=== PATIENT | female | born 1945 | race Caucasian/White ===

== ENCOUNTER 2016-08-26 11:25 | Inpatient (IN) | payer MEDICARE, BC ==
[2016-08-26] MEDS ORDERED: AZITHROMYCIN 500 MG in SODIUM CHLORIDE 0.9% 250 ML IVPB STA (12:10)
--- NOTE | 2016-08-26 12:15 | ED ---
SOB HPI - General Chief Complaint: Shortness of Breath Stated Complaint: congestion Time Seen by Provider: 08/26/16 12:04 Source: patient, family Mode of arrival: ambulatory Limitations: no limitations - History of Present Illness Initial Comments: Patient complains of cough and shortness of breath. Her symptoms have been there for about one week. She was started on antibiotics as an outpatient as well as steroids. She states that today she is feeling much worse. The medications are not helping her at all. She does not have any chest pain. She has no belly pain. She has no back pain. She has no lightheadedness or dizziness. She does not recall any other sick contacts. She has not traveled anywhere. She has no weakness or trouble walking. She is tolerating oral intake. - Related Data Home Medications Medication Instructions Recorded Confirmed Cholecalciferol (Vitamin D3) 4,000 units PO DAILY 06/04/14 08/26/16 [Vitamin D3] Levothyroxine Sodium [Synthroid] 88 mcg PO DAILY 05/16/15 08/26/16 Azithromycin [Zithromax Z-pack] See Taper PO DAILY 08/26/16 08/26/16 Cetirizine HCl [Zyrtec] 10 mg PO DAILY 08/26/16 08/26/16 Ranitidine HCl [Zantac] 150 mg PO BID 08/26/16 08/26/16 carBAMazepine [Carbatrol] 200 mg PO QAM 08/26/16 08/26/16 carBAMazepine [Carbatrol] 400 mg PO HS 08/26/16 08/26/16 methylPREDNISolone [Medrol Dose See Taper PO DIRECTED 08/26/16 08/26/16 Pack] Allergies Allergy/AdvReac Type Severity Reaction Status Date / Time hydrocodone bitartrate Allergy Nausea & Verified 08/26/16 12:00 [From Vicodin] Vomiting codeine AdvReac Nausea & Verified 08/26/16 12:00 Vomiting BANDAID Allergy Rash/Hives Uncoded 08/26/16 11:44 Review of Systems ROS Statement: Those systems with pertinent positive or pertinent negative responses have been documented in the HPI. ROS Other: All systems not noted in ROS Statement are negative. Past Medical History Past Medical History: GERD/Reflux, Hypertension, Neurologic Disorder, Thyroid Disorder Additional Past Medical History / Comment(s): LBBB; TRIGEMINAL NEURALGIA; THYROID NODULES,SEE DR KRISHEN' H&P History of Any Multi-Drug Resistant Organisms: None Reported Past Surgical History: Heart Catheterization, Hysterectomy, Orthopedic Surgery Additional Past Surgical History / Comment(s): RT knee; Gamma KNIFE TX TRIGEMINAL NEURALGIA; NASAL PROC; I&D FACIAL MOLE. thyroidectomy Past Anesthesia/Blood Transfusion Reactions: Motion Sickness Additional Past Anesthesia/Blood Transfusion Reaction / Comment(s): VERY CLAUSTROPHOBIC WITH ANYHING CLOSE TO FACE INCL O2 TUBING Past Psychological History: No Psychological Hx Reported Additional Psychological History / Comment(s): CLAUSTROPHOBIC Smoking Status: Never smoker Past Alcohol Use History: None Reported Past Drug Use History: None Reported - Past Family History Mother Family Medical History: Cancer Additional Family Medical History / Comment(s): lung cancer Father Brother(s) Family Medical History: Cancer Sister(s) Family Medical History: Cancer General Exam Limitations: no limitations General appearance: alert, in no apparent distress Head exam: Present: atraumatic, normocephalic, normal inspection Eye exam: Present: normal appearance, PERRL, EOMI. Absent: scleral icterus, conjunctival injection, periorbital swelling ENT exam: Present: normal exam, mucous membranes moist Neck exam: Present: normal inspection. Absent: tenderness, meningismus, lymphadenopathy Respiratory exam: Present: other (Significant for right sided rhonchi) Cardiovascular Exam: Present: regular rate, normal rhythm, normal heart sounds. Absent: systolic murmur, diastolic murmur, rubs, gallop, clicks GI/Abdominal exam: Present: soft, normal bowel sounds. Absent: distended, tenderness, guarding, rebound, rigid Extremities exam: Present: normal inspection, full ROM, normal capillary refill. Absent: tenderness, pedal edema, joint swelling, calf tenderness Back exam: Present: normal inspection Neurological exam: Present: alert, oriented X3, CN II-XII intact Psychiatric exam: Present: normal affect, normal mood Skin exam: Present: warm, dry, intact, normal color. Absent: rash Course Vital Signs 08/26/16 08/26/16 08/26/16 11:44 12:35 13:43 Temperature 97.9 F 98.3 F Pulse Rate 84 77 Respiratory 16 20 17 Rate Blood Pressure 129/74 168/77 O2 Sat by Pulse 98 95 Oximetry Medical Decision Making - Medical Decision Making Patient presents with shortness of breath. X-ray does demonstrate pneumonia. She will be admitted to the hospital. - Lab Data Result diagrams: 08/26/16 12:30 08/26/16 12:30 Lab Results 08/26/16 08/26/16 08/26/16 Range/Units 12:30 12:30 12:30 WBC 6.4 (3.8-10.6) k/uL RBC 4.65 (3.80-5.40) m/uL Hgb 14.0 (11.4-16.0) gm/dL Hct 41.6 (34.0-46.0) % MCV 89.5 (80.0-100.0) fL MCH 30.1 (25.0-35.0) pg MCHC 33.6 (31.0-37.0) g/dL RDW 13.1 (11.5-15.5) % Plt Count 217 (150-450) k/uL Neutrophils % (Manual) 65.0 % Lymphocytes % (Manual) 20.0 % Monocytes % (Manual) 15.0 % Neutrophils # (Manual) 4.2 (1.3-7.7) k/uL Lymphocytes # (Manual) 1.3 (1.0-4.8) k/uL Monocytes # (Manual) 1.0 (0-1.0) k/uL Nucleated RBCs 0 (0-0) /100 WBC Manual Slide Review Performed RBC Morphology Normal PT 9.5 (9.0-12.0) sec INR 0.9 (<1.1) APTT 24.1 (22.0-30.0) sec Sodium 142 (137-145) mmol/L Potassium 4.2 (3.5-5.1) mmol/L Chloride 104 (98-107) mmol/L Carbon Dioxide 24 (22-30) mmol/L Anion Gap 14 mmol/L BUN 14 (7-17) mg/dL Creatinine 0.80 (0.52-1.04) mg/dL Est GFR (MDRD) Af Amer >60 (>60 ml/min/1.73 sqM) Est GFR (MDRD) Non-Af >60 (>60 ml/min/1.73 sqM) Glucose 85 (74-99) mg/dL Calcium 9.4 (8.4-10.2) mg/dL Total Bilirubin 0.6 (0.2-1.3) mg/dL AST 30 (14-36) U/L ALT 44 (9-52) U/L Alkaline Phosphatase 96 (38-126) U/L Total Protein 7.6 (6.3-8.2) g/dL Albumin 4.4 (3.5-5.0) g/dL Disposition Clinical Impression: Pneumonia Disposition: ADMITTED IP TO THIS HOSP Condition: Fair Time of Disposition: 13:53
[2016-08-26 13:03] LABS: Aty Lym Flag Slight; CH 30.7; CHCM 34.4; HCT 41.6 % (34.0-46.0); MCH 30.1 pg (25.0-35.0); MCHC 33.6 g/dL (31.0-37.0); MCV 89.5 fL (80.0-100.0); RBC 4.65 m/uL (3.80-5.40); RDW 13.1 % (11.5-15.5); WBC 6.4 k/uL (3.8-10.6); WBC (Perox) 6.57
[2016-08-26 13:14] LABS: ALT 44 U/L (9-52); AST 30 U/L (14-36); Alkaline Phosphatase 96 U/L (38-126); Anion Gap 14 mmol/L; Blood Urea Nitrogen 14 mg/dL (7-17); Calcium 9.4 mg/dL (8.4-10.2); Carbon Dioxide 24 mmol/L (22-30); Chloride 104 mmol/L (98-107); Glucose 85 mg/dL (74-99); Non-African American GFR(MDRD) >60 (>60 ml/min/1.73 sqM); Potassium 4.2 mmol/L (3.5-5.1); Sodium 142 mmol/L (137-145); Total Bilirubin 0.6 mg/dL (0.2-1.3); Total Protein 7.6 g/dL (6.3-8.2)
[2016-08-26 13:17] LABS: INR 0.9 (<1.1); Partial Thromboplastin Time 24.1 sec (22.0-30.0); Prothrombin Time 9.5 sec (9.0-12.0)
[2016-08-26 13:24] LABS: Add Differential Manual Differential
[2016-08-26 13:26] LABS: Manual Review Performed; Nucleated Red Blood Cells 0 /100 WBC (0-0); Total Cells Counted 100
[2016-08-26 13:27] LABS: RBC Morphology Normal
--- NOTE | 2016-08-26 13:30 | XR ---
EXAMINATION TYPE: XR chest 2V DATE OF EXAM: 08/26/2016 1:12 PM COMPARISON: None HISTORY: 89-year-old female difficulty breathing, cough, congestion, and recent diagnosis of pneumoni a. TECHNIQUE: PA and lateral views FINDINGS: Heart is normal size. Aorta and pulmonary vasculature within normal limits. Some patchy opacity noted at the lung bases and posteriorly on the lateral view. Otherwise, no consolidation or pleural effusi on. IMPRESSION: Some patchy posterior basilar opacity likely atelectasis rather than early infiltrate.
[2016-08-26] MEDS ORDERED: MORPHINE SULFATE 4 MG/ML SYRINGE IV PRN (13:53)
[2016-08-26] MEDS ORDERED: NALOXONE 0.4 MG/ML 1 ML VIAL IV PRN (13:53)
[2016-08-26] MEDS ORDERED: ONDANSETRON 4 MG/2 ML VIAL IVP PRN (13:53)
[2016-08-26] MEDS ORDERED: SODIUM CHLORIDE 0.9% 1,000 ML IV STA (14:03)
[2016-08-26] MEDS: carBAMazepine 400 MG TAB.ER.12H PO SCH (20:46)
[2016-08-26] MEDS: FAMOTIDINE 20 MG TAB PO SCH (20:46)
[2016-08-27] MEDS: LEVOTHYROXINE 88 MCG TAB PO SCH (05:51)
[2016-08-27] MEDS: CHOLECALCIFEROL 1,000 UNIT TAB PO SCH (09:33)
[2016-08-27] MEDS: FAMOTIDINE 20 MG TAB PO SCH ×2 (09:33→20:44)
[2016-08-27] MEDS ORDERED: ACETAMINOPHEN TAB 325 MG TAB PO PRN (09:43)
[2016-08-27] MEDS: LEVOFLOXACIN 750MG-D5W PMX 750 MG in DEXTROSE/WATER 1 150ML.BAG IVPB SCH (10:39)
[2016-08-27] MEDS: SODIUM CHLORIDE 0.9% 1,000 ML IV SCH ×2 (10:40→23:05)
[2016-08-27 11:38] VITALS: BMI 32.5
[2016-08-27] MEDS: PIPERACILLIN-TAZOBACTAM 3.375 GM in DEXTROSE/WATER 1 50ML.BAG IVPB SCH ×3 (12:49→23:17)
--- NOTE | 2016-08-27 13:49 | P.HPIM ---
History of Present Illness H&P Date: 08/27/16 Chief Complaint: Shortness of breath This is a 71-year-old female. Her primary care physician is Dr. Cobos. She has a past medical history for hyperlipidemia, hypertension, SVT status post radiofrequency ablation, thyroid cancer, gastroesophageal reflux disease, trigeminal neuralgia. Patient states she has had cough and shortness of breath that started on Tuesday. She has started on Z-Tony and Medrol Dosepak for pneumonia obtained from Dr. Cobos without improvement in her symptoms actually became worse. No chest pain, no abdominal pain, no lightheadedness or dizziness. She came into [facility] emergency center for evaluation. Chest x-ray shows patchy bibasilar [place] or atelectasis. She was afebrile and did not have leukocytosis. Initial lactic acid was 3 and repeat was 1.4. Troponin was negative. Patient was admitted to the [facility] floor and started on IV antibiotics with Zosyn and Levaquin. Consult requested with pulmonary medicine. Review of Systems All systems: negative Constitutional: Denies chills, Denies fever Eyes: denies blurred vision, denies pain Ears, nose, mouth and throat: Denies headache, Denies sore throat Cardiovascular: Denies chest pain, Denies shortness of breath Respiratory: Reports cough, Reports dyspnea, Denies cough with sputum Gastrointestinal: Denies abdominal pain, Denies diarrhea, Denies nausea, Denies vomiting Genitourinary: Denies dysuria, Denies hematuria Musculoskeletal: Denies myalgias Integumentary: Denies pruritus, Denies rash Neurological: Denies numbness, Denies weakness Psychiatric: Denies anxiety, Denies depression Endocrine: Denies fatigue, Denies weight change Past Medical History Past Medical History: Cancer, GERD/Reflux, Hyperlipidemia, Hypertension, Neurologic Disorder, Osteoarthritis (OA), Thyroid Disorder Additional Past Medical History / Comment(s): LBBB; TRIGEMINAL NEURALGIA/mild memory problems; THYROID NODULES one spot was cancerous(sx done), ep studySEE DR WATTS' H&P, junior(last one in may 2016, rt cataract, SVT History of Any Multi-Drug Resistant Organisms: None Reported Past Surgical History: Heart Catheterization, Hysterectomy, Orthopedic Surgery Additional Past Surgical History / Comment(s): RT knee arthroscpy; Gamma KNIFE TX TRIGEMINAL NEURALGIA; NASAL PROC; I&D FACIAL MOLE. thyroidectomy, heart cath x2, colonoscpy/polyp removed was benign, EP study and radiofrequency ablation.. Past Anesthesia/Blood Transfusion Reactions: Motion Sickness Additional Past Anesthesia/Blood Transfusion Reaction / Comment(s): VERY CLAUSTROPHOBIC WITH ANYHING CLOSE TO FACE INCL O2 TUBING Past Psychological History: No Psychological Hx Reported Additional Psychological History / Comment(s): CLAUSTROPhOBIC Smoking Status: Never smoker Past Alcohol Use History: None Reported Additional Past Alcohol Use History / Comment(s): Patient is a lifelong nonsmoker. She denies any medical marijuana, marijuana, street drug or alcohol use. Past Drug Use History: None Reported - Past Family History Mother Family Medical History: Cancer Additional Family Medical History / Comment(s): Mother at age 71 from lung cancer Father Brother(s) Family Medical History: Cancer Additional Family Medical History / Comment(s): Patient has one brother with history of prostate cancer, stroke, diabetes, hypertension. Sister(s) Family Medical History: Cancer Additional Family Medical History / Comment(s): Patient has 4 sisters. One has with history of peripheral vascular disease. One has with history of COPD and bowel infection. She has one living sister that is 80 years of age with history of breast cancer. She has a second living sister with history of COPD, fibromyalgia, CVA, bradycardia, migraine headaches and osteoarthritis. Father Additional Family Medical History / Comment(s): Father at age 79 from leukemia Son(s) Additional Family Medical History / Comment(s): Patient has 2 sons and one his osteoarthritis status post bilateral hip replacements. Daughter(s) Additional Family Medical History / Comment(s): Patient has one daughter with history of Arnold-Chiari. Medications and Allergies Home Medications Medication Instructions Recorded Confirmed Type Cholecalciferol (Vitamin D3) 4,000 units PO DAILY 06/04/14 08/26/16 History [Vitamin D3] Levothyroxine Sodium [Synthroid] 88 mcg PO DAILY 05/16/15 08/26/16 History Azithromycin [Zithromax Z-pack] See Taper PO DAILY 08/26/16 08/26/16 History Cetirizine HCl [Zyrtec] 10 mg PO DAILY 08/26/16 08/26/16 History Ranitidine HCl [Zantac] 150 mg PO BID 08/26/16 08/26/16 History carBAMazepine [Carbatrol] 200 mg PO QAM 08/26/16 08/26/16 History carBAMazepine [Carbatrol] 400 mg PO HS 08/26/16 08/26/16 History methylPREDNISolone [Medrol Dose See Taper PO DIRECTED 08/26/16 08/26/16 History Pack] Allergies Allergy/AdvReac Type Severity Reaction Status Date / Time hydrocodone bitartrate Allergy Nausea & Verified 08/26/16 12:00 [From Vicodin] Vomiting codeine AdvReac Nausea & Verified 08/26/16 12:00 Vomiting BANDAID Allergy Rash/Hives Uncoded 08/26/16 11:44 Physical Exam Vitals: Vital Signs Temp Pulse Pulse Resp BP BP Pulse Ox 08/27/16 07:00 96.6 F L 67 16 139/83 96 08/27/16 00:00 76 08/26/16 23:00 93 L 08/26/16 21:52 98.6 F 76 19 131/61 08/26/16 17:54 19 08/26/16 15:39 20 08/26/16 15:34 96.7 F L 82 19 158/68 97 08/26/16 14:44 97.3 F L 70 17 154/79 97 Intake and Output 08/26/16 08/27/16 08/27/16 22:59 06:59 14:59 Other: Voiding Method Toilet Toilet Toilet # Voids 1 1 # Bowel Movements 1 Weight 80.739 kg Patient Weight 08/28/16 06:59 Weight 80.739 kg Gen: This is a 71-year-old female. She is sitting up in bed and appears to be in no acute distress. HEENT: Head is atraumatic, normocephalic. Pupils equal, round. Sclerae is anicteric. NECK: Supple. No JVD. No lymphadenopathy. No thyromegaly. LUNGS: Bilateral rhonchi. No intercostal retractions. HEART: Regular rate and rhythm. No murmur. ABDOMEN: Soft. Bowel sounds are present. No masses. No tenderness. EXTREMITIES: No pedal edema. No calf tenderness. NEUROLOGICAL: Patient is awake, alert and oriented x3. Cranial nerves 2 through 12 are grossly intact. Results CBC & Chem 7: 08/26/16 12:30 08/26/16 12:30 Thrombosis Risk Factor Assmnt - DVT/VTE Prophylaxis DVT/VTE Prophylaxis: Pharmacologic Prophylaxis ordered - Choose All That Apply Any of the Below Risk Factors Present?: Yes Each Factor Represents 1 point: Obesity (BMI >25), Serious lung disease incl. pneumonia (< 1month) Other Risk Factors: Yes Each Risk Factor Represents 2 Points: Age 61-74 years, Malignancy Other congenital or acquired thrombophilia - If yes, enter type in comment: No Thrombosis Risk Factor Assessment Total Risk Factor Score: 6 Thrombosis Risk Factor Assessment Level: High Risk Assessment and Plan Plan: 1. Pneumonia, possible gram-negative pneumonia, failed outpatient treatment. Patient admitted to the [facility] floor. Levaquin and Zosyn started. Consult with Dr. Bryant. DuoNeb treatments 4 times daily. 2. Hypothyroidism and thyroid cancer. Continue levothyroxine. 3. Gastroesophageal reflux disease. Continue Pepcid. 4. Vitamin D deficiency. Continue supplement. 5. Trigeminal neuralgia. Continue Tegretol. 6. Hypertension, not on medication. 7. Hyperlipidemia, not on medication. 8. History of SVT status post EP study and radiofrequency ablation, stable. 9. Gastrointestinal prophylaxis. Continue Pepcid. 10. DVT prophylaxis. Lovenox. Patient will be admitted to the hospital for a minimum of 2 night stay. Discharge plan: Return home Impression and plan of care have been directed as dictated by the signing physician. Maria Del Carmen Ayala nurse practitioner acting as scribe for signing physician. Time with Patient: Greater than 30
[2016-08-27] MEDS: IPRATROPIUM-ALBUTEROL 3 ML NEB INHALATION SCH ×2 (16:24→19:52)
[2016-08-27] MEDS: methylPREDNISolone SOD SUCCI 40 MG/ML 1 ML VIAL IV SCH ×2 (17:43→23:17)
[2016-08-27] MEDS: PROMETHAZINE 25 MG TAB PO PRN (18:51)
[2016-08-27] MEDS: carBAMazepine 400 MG TAB.ER.12H PO SCH (20:44)
--- NOTE | 2016-08-27 22:43 | P.CNPUL ---
History of Present Illness Consult date: 08/27/16 Requesting physician: Urvashi Alvarado Reason for consult: dyspnea Chief complaint: Shortness of breath and cough History of present illness: this is a 71-year-old female with history of Hypertension , previous history of atrial fibrillation requiring ablation, history of thyroid cancer, GERD, patient was recently seen by her primary care physician for symptoms of cough which was nonproductive, associated with low-grade fever, no chills, no hemoptysis, no chest pain. Patient was placed on oral antibiotics, did not improve much, and she came into the ER. Chest x-ray showed minimal basilar atelectasis, but no evidence of clear-cut infiltrate. No other findings were noted on the chest x-ray. patient was admitted and placed on broad-spectrum antibiotics, I evaluated the patient, and I added Solu-Medrol they have and cough suppression medication. Reviewed the chest x-ray with the patient, patient was noted to have no evidence of leukocytosis, she had a low-grade fever , initial lactic acid in the ER was elevated, but follow-up lactic acid was normal. Patient did not demonstrate any hemodynamic instability in the ER. Review of Systems 14 point review of systems were obtained, please effect on and negatives as per HPI. Past Medical History Past Medical History: Cancer, GERD/Reflux, Hyperlipidemia, Hypertension, Neurologic Disorder, Osteoarthritis (OA), Thyroid Disorder Additional Past Medical History / Comment(s): LBBB; TRIGEMINAL NEURALGIA/mild memory problems; THYROID NODULES one spot was cancerous(sx done), ep studySEE DR BREAUX H&P, junior(last one in may 2016, rt cataract, SVT History of Any Multi-Drug Resistant Organisms: None Reported Past Surgical History: Heart Catheterization, Hysterectomy, Orthopedic Surgery Additional Past Surgical History / Comment(s): RT knee arthroscpy; Gamma KNIFE TX TRIGEMINAL NEURALGIA; NASAL PROC; I&D FACIAL MOLE. thyroidectomy, heart cath x2, colonoscpy/polyp removed was benign, EP study and radiofrequency ablation.. Past Anesthesia/Blood Transfusion Reactions: Motion Sickness Additional Past Anesthesia/Blood Transfusion Reaction / Comment(s): VERY CLAUSTROPHOBIC WITH ANYHING CLOSE TO FACE INCL O2 TUBING Past Psychological History: No Psychological Hx Reported Additional Psychological History / Comment(s): CLAUSTROPhOBIC Smoking Status: Never smoker Past Alcohol Use History: None Reported Additional Past Alcohol Use History / Comment(s): Patient is a lifelong nonsmoker. She denies any medical marijuana, marijuana, street drug or alcohol use. Past Drug Use History: None Reported - Past Family History Father Additional Family Medical History / Comment(s): Father at age 79 from leukemia Son(s) Additional Family Medical History / Comment(s): Patient has 2 sons and one his osteoarthritis status post bilateral hip replacements. Daughter(s) Additional Family Medical History / Comment(s): Patient has one daughter with history of Arnold-Chiari. Mother Family Medical History: Cancer Additional Family Medical History / Comment(s): Mother at age 71 from lung cancer Father Brother(s) Family Medical History: Cancer Additional Family Medical History / Comment(s): Patient has one brother with history of prostate cancer, stroke, diabetes, hypertension. Sister(s) Family Medical History: Cancer Additional Family Medical History / Comment(s): Patient has 4 sisters. One has with history of peripheral vascular disease. One has with history of COPD and bowel infection. She has one living sister that is 80 years of age with history of breast cancer. She has a second living sister with history of COPD, fibromyalgia, CVA, bradycardia, migraine headaches and osteoarthritis. Medications and Allergies Home Medications Medication Instructions Recorded Confirmed Type Cholecalciferol (Vitamin D3) 4,000 units PO DAILY 06/04/14 08/26/16 History [Vitamin D3] Levothyroxine Sodium [Synthroid] 88 mcg PO DAILY 05/16/15 08/26/16 History Azithromycin [Zithromax Z-pack] See Taper PO DAILY 08/26/16 08/26/16 History Cetirizine HCl [Zyrtec] 10 mg PO DAILY 08/26/16 08/26/16 History Ranitidine HCl [Zantac] 150 mg PO BID 08/26/16 08/26/16 History carBAMazepine [Carbatrol] 200 mg PO QAM 08/26/16 08/26/16 History carBAMazepine [Carbatrol] 400 mg PO HS 08/26/16 08/26/16 History methylPREDNISolone [Medrol Dose See Taper PO DIRECTED 08/26/16 08/26/16 History Pack] Allergies Allergy/AdvReac Type Severity Reaction Status Date / Time hydrocodone bitartrate Allergy Nausea & Verified 08/26/16 12:00 [From Vicodin] Vomiting codeine AdvReac Nausea & Verified 08/26/16 12:00 Vomiting BANDAID Allergy Rash/Hives Uncoded 08/26/16 11:44 Physical Exam Vitals: Vital Signs Temp Pulse Pulse Resp BP Pulse Ox 08/27/16 21:33 98.3 F 73 19 141/59 08/27/16 19:53 72 08/27/16 16:39 70 08/27/16 16:26 70 08/27/16 15:00 97.0 F L 74 20 154/71 96 08/27/16 07:00 96.6 F L 67 16 139/83 96 08/27/16 00:00 76 08/26/16 23:00 93 L Intake and Output 08/27/16 08/27/16 08/27/16 06:59 14:59 22:59 Intake Total 400 Balance 400 Intake: Oral 400 Other: Voiding Method Toilet Toilet Toilet # Voids 1 2 1 Weight 80.739 kg Patient Weight 08/28/16 06:59 Weight 80.739 kg physical examination revealed a 71-year-old female in no distress, however she was noted to have intermittent coughing spells during my evaluation. HEENT: Neck supple no masses no thyromegaly. Chest: Good breath sounds bilaterally, slight wheezing on forced expiratory maneuver. Cardiac exam: Normal S1 and S2, no gallops. Abdomen: Soft nontender No megaly, no rebound. Extremities: No clubbing edema or cyanosis. Neurologic: No focal neurologic deficits. Results - Laboratory Findings CBC and BMP: 08/26/16 12:30 08/26/16 12:30 PT/INR, D-dimer PT 9.5 sec (9.0-12.0) 08/26/16 12:30 INR 0.9 (<1.1) 08/26/16 12:30 - Diagnostic Findings Chest x-ray: image reviewed ( Minimal basilar atelectasis is noted on the lateral view, no clear-cut infiltrate.) Assessment and Plan Plan: Impression: Acute tracheobronchitis and reactive bronchospasm.No evidence of neptali pneumonia on the chest x-ray. Multiple comorbidities including history of hypertension, previous history of atrial fibrillation requiring ablation, history of GERD, history of thyroid cancer. Recommendation: Agree with the present broad spectrum antibiotics coverage, we will arrange for sputum cultures if obtained, will add bronchodilators and steroids and cough suppressants. We will follow closely. Repeat chest x-ray in a.m. Time with Patient: Greater than 30
[2016-08-28] MEDS: methylPREDNISolone SOD SUCCI 40 MG/ML 1 ML VIAL IV SCH ×2 (05:26→11:05)
[2016-08-28] MEDS: LEVOTHYROXINE 88 MCG TAB PO SCH (05:32)
[2016-08-28] MEDS: PROMETHAZINE 25 MG TAB PO PRN (05:48)
[2016-08-28] MEDS: IPRATROPIUM-ALBUTEROL 3 ML NEB INHALATION SCH ×3 (07:51→15:36)
[2016-08-28] MEDS: FAMOTIDINE 20 MG TAB PO SCH (10:05)
[2016-08-28] MEDS: CHOLECALCIFEROL 1,000 UNIT TAB PO SCH (10:05)
[2016-08-28] MEDS: PIPERACILLIN-TAZOBACTAM 3.375 GM in DEXTROSE/WATER 1 50ML.BAG IVPB SCH (10:05)
[2016-08-28] MEDS: SODIUM CHLORIDE 0.9% 1,000 ML IV SCH (13:27)
--- NOTE | 2016-08-28 13:28 | P.PN ---
Subjective Principal diagnosis: Acute tracheobronchitis with reactive bronchospasm This is a very pleasant 71-year-old female patient with a known history of hypertension, atrial fibrillation status post ablation, thyroid cancer, GERD. She follows with Dr. Cobos as her family physician. She had recently been having complaints of increasing shortness of breath, cough and congestion. She had been on oral antibiotics in the outpatient setting without much improvement in was admitted here on 08/26/2016 for the same. Her chest x-ray showed minimal basilar atelectasis but no clear-cut evidence of a pneumonia. She is seen again today in the regular medical floor in follow-up. She is awake and alert in no acute distress. He is maintaining good O2 saturations in the upper 90s on room air. Currently afebrile. Objective - Vital Signs Vital signs: Vital Signs Temp 96.5 F L 08/28/16 07:00 Pulse 72 08/28/16 11:40 Resp 22 08/28/16 07:00 BP 132/62 08/28/16 07:00 Pulse Ox 97 08/28/16 07:54 Intake & Output 08/27/16 08/28/16 08/28/16 18:59 06:59 18:59 Intake Total 400 875 320 Balance 400 875 320 Weight 80.739 kg Intake: Intake, IV Titration 875 Amount Piperacillin-Tazobactam 3 50 .375 gm In Dextrose/Water 1 50ml.bag @ 12.5 mls/hr IVPB Q8HR YELENA Rx#: [id number] Sodium Chloride 0.9% 1, 825 000 ml @ 75 mls/hr IV . [id number] YELENA Rx#:[id number] Oral 400 320 Other: Voiding Method Toilet Toilet # Voids 1 2 - Exam GENERAL EXAM: Alert, active, comfortable in no apparent distress. HEAD: Normocephalic. EYES: Normal reaction of pupils, equal size. NOSE: Clear with pink turbinates. THROAT: No erythema or exudates. NECK: No masses, no JVD. CHEST: No chest wall deformity. LUNGS: Equal air entry with faint end expiratory wheeze with forced exhalation. CVS: S1 and S2 normal with no audible murmurs, regular rhythm. ABDOMEN: No hepatosplenomegaly, normal bowel sounds, no guarding or rigidity. SPINE: No scoliosis or deformity SKIN: No rashes CENTRAL NERVOUS SYSTEM: No focal deficits, tone is normal in all 4 extremities. [place] is: There is no peripheral edema. No clubbing, no cyanosis. Peripheral pulses are intact. - Labs CBC & Chem 7: 08/26/16 12:30 08/26/16 12:30 Assessment and Plan Plan: Impression: #1 Acute tracheobronchitis with bronchospasm. No clear evidence of pneumonia. #2 Hypertension. #3 History of atrial fibrillation status post ablation. #4 GERD neck #5 History of thyroid cancer. Plan: The patient was seen and evaluated by Dr. Bryant. She is improved today as compared to yesterday. She is cleared for discharge from the pulmonary standpoint. She'll remain on a prednisone taper, cough suppressants, and complete her course of antibiotics. Follow up with her PCP in 1 week.
[2016-08-28] MEDS: LEVOFLOXACIN 750MG-D5W PMX 750 MG in DEXTROSE/WATER 1 150ML.BAG IVPB SCH (14:21)
[2016-08-28 15:46] VITALS: BP 125/53; RESP 16; TEMP 97.1
[2016-08-28 15:56] VITALS: PULSE 83
--- NOTE | 2016-08-29 12:56 | DS ---
DATE OF ADMISSION: 08/26/2016 DATE OF DISCHARGE: 08/28/2016 ADMITTING DIAGNOSES: 1. Tracheobronchitis with early pneumonia. The patient failed outpatient management. 2. Hypothyroidism. 3. Gastroesophageal reflux disease. 4. Vitamin D deficiency. 5. Trigeminal neuralgia. 6. Hypertension. 7. Hyperlipidemia. 8. History of supraventricular tachycardia. DISCHARGE DIAGNOSES: 1. Tracheobronchitis with early pneumonia. The patient failed outpatient management. 2. Hypothyroidism. 3. Gastroesophageal reflux disease. 4. Vitamin D deficiency. 5. Trigeminal neuralgia. 6. Hypertension. 7. Hyperlipidemia. 8. History of supraventricular tachycardia. HOSPITAL COURSE: This is a 71-year-old female who presented to the hospital after trying for 2 days to improve with Z-Tony and Medrol Dosepak which was prescribed by her primary care physician. The patient felt extremely weak and lethargic and presented to the hospital. Initial evaluation revealed dehydration and debilitated female. Started on IV antibiotics, IV fluid and patient felt improvement at least by 50% on the second day and asked if she can be sent home on new antibiotics. Patient was discharged on Levaquin, Medrol Dosepak and Phenergan for cough and states that she will follow up with her primary care physician as outpatient. Patient was discharged in stable condition. Discharge process: 30 minutes.
== END 2016-08-28 16:26 | disposition home or self-care (01) | DRG 179 ==
LOC: EC 11:25 → 4MS4W 13:53
PROVIDERS: ADMIT Internal Medicine; ATTEND Internal Medicine
DX: J15.6 Pneumonia due to other Gram-negative bacteria (principal); E86.0 Dehydration; I10 Essential (primary) hypertension; E55.9 Vitamin D deficiency, unspecified; E03.9 Hypothyroidism, unspecified; E78.5 Hyperlipidemia, unspecified; F40.240 Claustrophobia; G50.0 Trigeminal neuralgia; J20.9 Acute bronchitis, unspecified; K21.9 Gastro-esophageal reflux disease without esophagitis; M19.90 Unspecified osteoarthritis, unspecified site; H26.9 Unspecified cataract; Z85.850 Personal history of malignant neoplasm of thyroid; Z79.899 Other long term (current) drug therapy; Z88.5 Allergy status to narcotic agent; Z82.49 Family history of ischemic heart disease and other diseases of the circulatory system
CPT/HCPCS: 36415; 71020; 80053; 83605; 83880; 84484; 85025; 85610; 85730; 87040; 93005; 94640; 94760; 96365; 96367; 99285

== ENCOUNTER → 2016-11-10 | Outpatient (CLI) | payer MEDICARE, BC ==
--- NOTE | 2016-11-10 09:12 | CT ---
EXAMINATION TYPE: CT sinus wo con DATE OF EXAM: 11/10/2016 9:00 AM COMPARISON: NONE HISTORY: Anosmia CT DLP: 616 mGycm CONTRAST: mL of The paranasal sinuses are examined in the axial plane at 2 mm thick sections. Reconstructed images i n the coronal plane were obtained. There is dental amalgam scatter artifact Small posterior right maxillary retention cyst is present. Left maxillary sinus is patent. The ethmo id air cells are clear. There is mucosal thickening and retention cyst within the mid sphenoid sinus . The frontal sinuses are clear. The septum is evaluated. There is septal deviation to the right. The ostiomeatal units are patent. Note is made of a right septal spur. IMPRESSIONS: 1. Right maxillary and mid sphenoid sinus mucosal thickening and/or retention cysts.
== END | disposition home or self-care (01) ==
LOC: RADCTMAIN 08:30
PROVIDERS: ATTEND Otolaryngology
DX: R43.0 Anosmia (principal)
CPT/HCPCS: 70486

== ENCOUNTER → 2016-11-24 | Outpatient (CLI) | payer MEDICARE, BC ==
[2016-11-24 11:47] LABS: Basophils % (A) 1 %; CH 30.7; CHCM 33.6; Eosinophils # (A) 0.1 k/uL (0-0.7); Eosinophils % (A) 1 %; HCT 41.2 % (34.0-46.0); HDW 2.39; HGB 13.6 gm/dL (11.4-16.0); Luc # (Auto) 0.19; Luc % (Auto) 4; Lymphocytes # (A) 1.3 k/uL (1.0-4.8); Lymphocytes % (A) 24 %; MCH 30.2 pg (25.0-35.0); MCV 91.6 fL (80.0-100.0); Mean Platelet Volume 7.4; Monocytes # (A) 0.4 k/uL (0-1.0); Monocytes % (A) 7 %; Neutrophils # (A) 3.3 k/uL (1.3-7.7); Neutrophils % (A) 63 %; RDW 13.3 % (11.5-15.5); WBC 5.2 k/uL (3.8-10.6); WBC (Perox) 5.43
[2016-11-24 12:13] LABS: ALT 26 U/L (9-52); AST 21 U/L (14-36); Alkaline Phosphatase 72 U/L (38-126); Anion Gap 10 mmol/L; Blood Urea Nitrogen 12 mg/dL (7-17); Calcium 9.3 mg/dL (8.4-10.2); Carbamazepine (Tegretol) 6.5 ug/mL; Carbon Dioxide 28 mmol/L (22-30); Chloride 105 mmol/L (98-107); Cholesterol 245 mg/dL (<200); Glucose 98 mg/dL (74-99); HDL Cholesterol 55 mg/dL (40-60); Non-African American GFR(MDRD) >60 (>60 ml/min/1.73 sqM); Potassium 4.9 mmol/L (3.5-5.1); Sodium 143 mmol/L (137-145); Total Bilirubin 0.7 mg/dL (0.2-1.3); Triglycerides 143 mg/dL (<150)
== END | disposition home or self-care (01) ==
LOC: LABWHC1 11:12
PROVIDERS: ATTEND Psychiatry & Neurology Neurology
DX: T42.1X5D Adverse effect of iminostilbenes, subsequent encounter (principal); E78.5 Hyperlipidemia, unspecified; Z51.81 Encounter for therapeutic drug level monitoring; Z79.899 Other long term (current) drug therapy
CPT/HCPCS: 36415; 80053; 80061; 80156; 85025

== ENCOUNTER → 2017-02-10 | Outpatient (CLI) | payer MEDICARE, BC ==
--- NOTE | 2017-02-10 22:58 | MR ---
EXAMINATION TYPE: MR knee LT wo con DATE OF EXAM: 02/10/2017 COMPARISON: Outside radiograph 02/04/2017 HISTORY: 71-year-old female with left knee pain for 2 months, previous arthroscopy. TECHNIQUE: Multiplanar, multisequence imaging of the left knee is performed without IV contrast. FINDINGS: Increased fluid signal along the intact ACL there is some edema and probable early interosseous gangl ion cyst formation within the tibial eminence near the medial meniscus posterior root attachment. PCL, MCL, and LCL complex appear intact. A complex multidirectional tear involving the posterior horn and body of the medial meniscus. Mild ir regular cartilage thinning medial compartment articular cartilage. The lateral meniscus is intact. There is mild diffuse thinning of lateral compartment articular carti nathaly volume. Mild to moderate irregular cartilage thinning along the lateral patellar facet and mild diffuse thinn ing of trochlear articular cartilage. Slight lateral patellar tilt is noted. Extensor mechanism is intact. Small knee joint effusion. Trace early Mayen's cyst formation. Nonspecific mild anterior soft tissue swelling. Normal popliteal artery anatomy and muscle bulk. No suspicious bone marrow replacement. IMPRESSION: 1. Some mucoid degeneration versus low-grade ACL sprain. 2. Complex multidirectional tear of the posterior horn and body of the medial meniscus with some reac tive bone marrow edema or early intraosseous ganglion cyst formation at the tibial insertion of the p osterior root. 3. Mild medial and patellofemoral compartmental osteoarthrosis. 3. Small knee joint effusion, trace early Mayen's cyst, and nonspecific anterior soft tissue swelling .
== END | disposition home or self-care (01) ==
LOC: RADMRIMAIN 16:02
PROVIDERS: ATTEND Orthopaedic Surgery
DX: S83.232A Complex tear of medial meniscus, current injury, left knee, initial encounter (principal); M17.12 Unilateral primary osteoarthritis, left knee; M71.22 Synovial cyst of popliteal space [Baker], left knee; M79.89 Other specified soft tissue disorders

== ENCOUNTER → 2017-02-14 | Outpatient (CLI) | payer MEDICARE, BC ==
--- NOTE | 2017-02-14 09:44 | BD ---
EXAMINATION TYPE: MG DEXA axial skeleton. DATE OF EXAM: 02/14/2017 COMPARISON: 2012 CLINICAL HISTORY: 71-year-old female disorder of bone Height: 5'2 Weight: 181 FRAX RISK QUESTIONS: Alcohol (3 or more units per day): no Family History (Parent hip fracture): no Glucocorticoids (More than 3mos): no (Ex: prednisone, prednisolone, methylprednisolone, dexamethasone, and hydrocortisone). History of Fracture in Adulthood: no Secondary Osteoporosis: 1. Type 1 Diabetes: no 2. Hyperthyroidism: no 3. Menopause before 45: yes 4. Malnutrition: no 5. Chronic liver disease: no Rheumatoid Arthritis: no Current Tobacco Use: no RISK FACTORS HISTORY OF: Family History of Osteoporosis: yes Diet low in dairy products/other sources of calcium: yes Postmenopausal woman: yes MEDICATIONS: Thyroid Medications: Which medication: Synthroid How Lon years Additional Medications: blood pressure, nerve Additional History: thyroid cancer 2013 EXAM MEASUREMENTS: Bone mineral densitometry was performed using the [employer] System. Bone mineral density as measured about the Lumbar spine is: ----- L1-L4(G/cm2): 0.956 T Score Values are as follows: ----- L1: -2.6 ----- L2: -3.0 ----- L3: -1.5 ----- L4: -0.8 ----- L1-L4: -1.9 Bone mineral density has: Decreased -5.7% since study of: 07/30/2013 Bone mineral density about the R hip (g/cm2): 0.856 Bone mineral density about the L hip (g/cm2): 0.862 T Score values are as follows: -----R Neck: -1.3 -----L Neck: -1.3 -----R Total: -0.4 -----L Total: -0.5 Bone mineral density has: Increased 0.3% since study of: 07/30/2013 IMPRESSION: Osteoporosis as indicated by T score values in the upper lumbar spine. There is increased fracture risk and therapy is usually indicated based on age. Re-Screen 1-2 years. NOTE: T-SCORE=SD OF THE YOUNG ADULT MEAN.
== END ==
LOC: RADBDWWP 07:25
PROVIDERS: ATTEND Obstetrics & Gynecology
DX: M81.0 Age-related osteoporosis without current pathological fracture (principal)
CPT/HCPCS: 77080

== ENCOUNTER → 2017-02-23 | Outpatient (CLI) | payer MEDICARE, BC ==
[2017-02-23 14:12] LABS: Anion Gap 9 mmol/L; Blood Urea Nitrogen 15 mg/dL (7-17); Calcium 8.9 mg/dL (8.4-10.2); Carbon Dioxide 28 mmol/L (22-30); Chloride 104 mmol/L (98-107); Cholesterol 247 mg/dL (<200); Glucose 88 mg/dL (74-99); HDL Cholesterol 43 mg/dL (40-60); Non-African American GFR(MDRD) >60 (>60 ml/min/1.73 sqM); Potassium 4.8 mmol/L (3.5-5.1); Sodium 141 mmol/L (137-145); Triglycerides 248 mg/dL (<150)
== END ==
LOC: LABWHC1 13:25
PROVIDERS: ATTEND Internal Medicine Clinical Cardiac Electrophysiology
DX: E78.5 Hyperlipidemia, unspecified (principal); I10 Essential (primary) hypertension
CPT/HCPCS: 36415; 80048; 80061; 84443

== ENCOUNTER 2017-03-22 07:47 | Day surgery (SDC) | payer MEDICARE, BC ==
[2017-03-18 15:51] VITALS: BMI 33.0
--- NOTE | 2017-03-21 17:47 | HP ---
CHIEF COMPLAINT: Left knee pain. HISTORY OF PRESENT ILLNESS: The patient is a 71 -year-old retired female who presents with progressive left knee pain and mechanical symptoms for the past several months. She notes pain with walking and at night. She has been limping. She notes it limits her functions and activities. PAST MEDICAL HISTORY: Significant for hypertension, depression, reflux disease , trigeminal neuralgia along with coronary artery disease. Past surgical history significant for previous cardiac catheterization and ablation, hysterectomy. Current medications: 1. Synthroid. 2. Carbamazepine. 3. Amlodipine. 4. Advil. ALLERGIES: She notes sensitivity to Vicodin, however, no neptali drug allergies. FAMILY HISTORY: Significant for cancer. SOCIAL HISTORY: Negative for current tobacco or alcohol use. 16 point review of systems reviewed and is noncontributory. On examination, the patient is approximately 5 feet 2 inches, 173 pounds of endomorphic habitus. HEENT Exam is nonfocal. Neck is supple. She has painless passive motion of the left knee -10 to 115 degrees of flexion. She is tender about the medial joint line. Collaterals are stable. Lachmans negative. McMurrays elicits medial pain. Her distal neurovascular exam appears to be intact in the left lower extremity. MRI report for the left knee from 02/10/2017 shows a posterior horn medial meniscal tear. IMPRESSION: 1. Left knee symptomatic medial meniscal tear. 2. Left knee moderate medial compartment osteoarthrosis. RECOMMENDATIONS: I talked to the patient at length regarding her treatment options. She is having persistent pain and mechanical symptoms that limit her. After thorough discussion, she opts to proceed with surgery. We will plan to proceed with arthroscopic evaluation with probable partial medial meniscectomy. Risks and benefits are discussed at length in laymans terms. We will likely perform that as an outpatient procedure. TERRANCE
[~2017-03-22 07:47] MED LIST: LACTATED RINGERS 1,000 ML IV SCH; MIDAZOLAM 2 MG/2 ML VIAL IV PRN; ceFAZolin 2 GM in SODIUM CHLORIDE 0.9% 100 ML IVPB ONE
[2017-03-22] MEDS ORDERED: DEXAMETHASONE SOD PHOS (MDV) 100 MG/10 ML VIAL IVP ONE (08:23)
[2017-03-22] MEDS: ONDANSETRON 4 MG/2 ML VIAL IVP ONE ×2 (08:23→10:24)
[2017-03-22] MEDS ORDERED: LIDOCAINE 1% 20 ML VIAL (10MG/ML) FOR IV START INTRADERMA ONE (08:24)
[2017-03-22] MEDS ORDERED: MIDAZOLAM 2 MG/2 ML VIAL ONE (09:08)
[2017-03-22] MEDS ORDERED: ACETAMINOPHEN IV (For NPO) 1,000 MG/100 ML VIAL ONE (09:08)
[2017-03-22] MEDS ORDERED: PROPOFOL 10 MG/ML 20 ML VIAL IV ONE (09:08)
[2017-03-22] MEDS ORDERED: fentaNYL (PF) 50 MCG/ML 2 ML AMP ONE (09:08)
[2017-03-22] MEDS ORDERED: LIDOCAINE 1% INJ 10MG/ML (20 ML MDV) ONE (09:08)
--- NOTE | 2017-03-22 09:58 | P.OP ---
Date of Procedure: 03/22/17 Preoperative Diagnosis: Left knee internal derangement Postoperative Diagnosis: Left knee posterior medial meniscal tear/middle one third lateral meniscal tear/ grade 3 chondral injury distal central medial femoral condyle/grade 2 chondral injury lateral patellar facet Procedure(s) Performed: Left knee arthroscopic partial medial meniscectomy/partial lateral meniscectomy/ medial femoral chondrectomy/patellar chondroplasty Implants: Anesthesia: GETA Surgeon: Hernan Yeung Estimated Blood Loss (ml): 5 Pathology: none sent Condition: stable Disposition: PACU Indications for Procedure: The patient's a 71-year-old female who presents with progressive left knee pain and mechanical symptoms after previous twisting injury. She did try conservative measures was persistence of her symptoms. A discussion of the risks and benefits of operative intervention versus continued conservative measures was made with patient. She opted to proceed with surgery. Operative risks to include infection, neurovascular injury, development of blood clots, possible incomplete resolution of symptoms, possible worsening symptoms and need for subsequent procedures was discussed. Informed consent was obtained. Operative Findings: as below Description of Procedure: The patient was brought to the operating room, and after induction of general anesthesia I examined the left knee. Collaterals were stable, Shy was negative, and posterior drawer was negative. The left lower extremity was prepped and draped in normal fashion. A superior lateral portal was made through a 3 mm skin incision superior and lateral to the patella. This was used for outflow. A lateral portal was made through a 5 mm vertical skin incision lateral to the patella tendon above the joint line. Diagnostic arthroscopy was performed. A medial portal was made through a similar incision medial to the patellar tendon above the joint line. On inspection of the medial compartment, she was noted have complex tear involving the posterior horn of the medial meniscus in the white-red junction. This was debrided back to stable base with straight baskets and a motorized shaver. The edges were contoured. A small flap tear involving the anterior aspect the medial meniscus was also noted. This was debrided back to stable base with a motorized shaver. A grade 3 chondral injury was noted involving the central distal portion medial femoral condyle. There was a 4 x 5 mm loose chondral flap. This was debrided back to stable base with a motorized shaver. Grade 2-3 chondral changes were noted diffusely involving the medial compartment. On inspection of the notch, the anterior cruciate ligament appeared to be intact. On inspection of the lateral compartment, there was a radial tear involving the middle one third the lateral meniscus in the white-white junction. This was debrided back to stable base with straight baskets and a motorized shaver. The edges were contoured. No significant chondral injury was noted involving the lateral compartment. On inspection of the patellofemoral articulation, there is grade 2-3 chondral changes involving the lateral patella facet. There was a loose chondral fragment on the lateral patellar facet debrided back to stable base with a motorized shaver. The gutters were clear debris. The knee was then thoroughly irrigated. The portals were closed with Steri-Strips. A sterile dressing was applied in addition to a compression stocking. The patient was awoken from general anesthesia and transferred to the recovery room in good condition. Blood loss was estimated at 5 mL. No complications were incurred.
[2017-03-22 10:09] VITALS: TEMP 97
[2017-03-22] MEDS: HYDROmorphone 1 MG/ML 1 ML SYRINGE IVP ONE ×2 (10:19→10:24)
[2017-03-22] MEDS ORDERED: traMADol 50 MG TAB PO ONE (11:33)
[2017-03-22 12:42] VITALS: BP 136/67; PULSE 67; RESP 18
[2017-03-22 12:52] LABS: Glucose,Whole Blood 132 mg/dL (75-99)
== END 2017-03-22 13:02 | disposition home or self-care (01) ==
LOC: OR 07:47
PROVIDERS: ATTEND Orthopaedic Surgery
DX: S83.242A Other tear of medial meniscus, current injury, left knee, initial encounter (principal); S83.282A Other tear of lateral meniscus, current injury, left knee, initial encounter; S83.32XA Tear of articular cartilage of left knee, current, initial encounter; X58.XXXA Exposure to other specified factors, initial encounter; I10 Essential (primary) hypertension; F32.9 Major depressive disorder, single episode, unspecified; E07.9 Disorder of thyroid, unspecified; K21.9 Gastro-esophageal reflux disease without esophagitis; G50.0 Trigeminal neuralgia; Z79.899 Other long term (current) drug therapy; Z88.5 Allergy status to narcotic agent
CPT/HCPCS: 29881; J2250; J0690; J2405; J2001; J3010; J1170; J1100; J0131; J2704

== ENCOUNTER → 2017-07-01 | Outpatient (CLI) | payer MEDICARE, BC ==
--- NOTE | 2017-07-04 08:08 | MM ---
Reason for exam: screening (asymptomatic). Last mammogram was performed 1 year ago. History: Patient is postmenopausal and has history of other cancer at age 70. Family history of breast cancer in maternal cousin at age 53 and breast cancer in sister at age 58. Took estrogen for 16 years 1 month beginning at age 46. Physical Findings: A clinical breast exam by your physician is recommended on an annual basis and results should be correlated with mammographic findings. MG Screening Mammo w CAD Bilateral CC and MLO view(s) were taken. Prior study comparison: June 21, 2016, bilateral MG screening mammo w CAD. June 19, 2015, bilateral MG screening mammo w CAD. July 30, 2013, bilateral digital screening mammo w/CAD. There are scattered fibroglandular densities. No significant changes when compared with prior studies. ASSESSMENT: Negative, BI-RAD 1 RECOMMENDATION: Routine screening mammogram of both breasts in 1 year.
== END | disposition home or self-care (01) ==
LOC: RADMAMWWP 09:04
PROVIDERS: ATTEND Family Medicine
DX: Z12.31 Encounter for screening mammogram for malignant neoplasm of breast (principal)

== ENCOUNTER → 2017-08-22 | Outpatient (CLI) | payer MEDICARE | END | disposition home or self-care (01) | LOC: LABPAT 11:05 | PROVIDERS: ATTEND Orthopaedic Surgery | DX: Z01.812 Encounter for preprocedural laboratory examination (principal) | CPT/HCPCS: 87070 ==

== ENCOUNTER 2017-09-06 07:49 | Inpatient (IN) | payer BC, MEDICARE ==
[2017-08-31 11:55] VITALS: BMI 32.5
--- NOTE | 2017-09-05 10:36 | HP ---
HISTORY AND PHYSICAL CHIEF COMPLAINT: Left knee pain. HISTORY OF PRESENT ILLNESS: The patient is a 72-year-old retired female who presents with progressive left knee pain secondary to osteoarthrosis. She notes pain with weightbearing activities that is significantly limiting her. She has tried previous injections and medications in addition and has had a previous arthroscopy. PAST MEDICAL HISTORY: Significant for heart disease and arthritis along with depression, trigeminal neuralgia, and reflux disease. PAST SURGICAL HISTORY: Significant for cardiac catheterization, hysterectomy, and left knee arthroscopy. CURRENT MEDICATIONS: 1. Amlodipine. 2. Advil. 3. Synthroid. 4. Carbamazepine. She has sensitivity to VICODIN; however, no neptali drug allergies. 16 POINT REVIEW OF SYSTEMS: Otherwise reviewed and is noncontributory. SOCIAL HISTORY: Negative for current tobacco or alcohol use. PHYSICAL EXAMINATION: The patient is approximately 5 foot 2, 173 pounds of endomorphic habitus. HEENT exam is nonfocal. Neck is supple. She has painless passive motion of her left hip. Straight leg raise is negative. Active motion left knee -8 to 125 degrees of flexion. She has a large effusion. She is tender about the medial joint line. Collaterals are stable, Shy is negative, Mac's is equivocal. She has genu varum alignment. Her distal neurovascular exam appears intact in the left lower extremity. Previous weightbearing AP and lateral views of the left knee show severe medial compartment osteoarthrosis. IMPRESSION: 1. Left knee severe medial compartment osteoarthrosis. 2. Increased body mass index. RECOMMENDATIONS: I talked to the patient at length regarding her treatment options. At this point, she is quite symptomatic because of pain related to her osteoarthrosis despite conservative measures. After thorough discussion, she opts to proceed with surgery. We will plan to proceed with left total knee arthroplasty. We will institute DVT prophylaxis postoperatively. MMODL / IJN: [id number] /
[~2017-09-06 07:49] MED LIST changes: +ACETAMINOPHEN TAB 500 MG TAB PO ONE; +DEXAMETHASONE SOD PHOSPHATE 10 MG/ML 1 ML VIAL IV ONE; -LACTATED RINGERS 1,000 ML IV SCH; +MELOXICAM 7.5 MG TAB PO ONE; +ONDANSETRON 4 MG/2 ML VIAL IVP ONE; +TRANEXAMIC ACID 1,000 MG in SODIUM CHLORIDE 0.9% 50 ML IVPB ONE; -ceFAZolin 2 GM in SODIUM CHLORIDE 0.9% 100 ML IVPB ONE; +ceFAZolin IN SWFI 2 GM/20 ML SYRINGE IVP ONE; +fentaNYL (PF) 50 MCG/ML 2 ML AMP IV PRN
[2017-09-06] MEDS: LACTATED RINGERS 1,000 ML IV SCH (08:34)
[2017-09-06] MEDS ORDERED: LIDOCAINE 1% 20 ML VIAL (10MG/ML) FOR IV START INTRADERMA ONE (08:35)
[2017-09-06] MEDS ORDERED: MIDAZOLAM 2 MG/2 ML VIAL IVP ONE (08:51)
[2017-09-06] MEDS ORDERED: ROPIVACAINE 246.25 MG, EPINEPHrine 0.5 MG, KETOROLAC 30 MG, cloNIDine HCL/PF 80 MCG, WA... MISCELLANE ONE ×5 (09:10)
[2017-09-06] MEDS ORDERED: fentaNYL (PF) 50 MCG/ML 2 ML AMP ONE (09:13)
[2017-09-06] MEDS ORDERED: TRANEXAMIC ACID 1,000 MG/10 ML VIAL ONE (09:13)
[2017-09-06] MEDS ORDERED: PROPOFOL 10 MG/ML 20 ML VIAL IV ONE (09:13)
[2017-09-06] MEDS ORDERED: ePHEDrine SULFATE/0.9% NACL/PF 50 MG/5 ML SYRINGE IV ONE (09:13)
[2017-09-06] MEDS ORDERED: PHENYLEPHRINE-0.9% NACL SYG 1 MG/10 ML SYRINGE ONE (09:13)
[2017-09-06] MEDS ORDERED: SODIUM CHLORIDE 0.9% 100 ML BAG ONE (09:13)
[2017-09-06] MEDS ORDERED: diphenhydrAMINE 50 MG/ML 1 ML VIAL ONE (09:13)
[2017-09-06] MEDS ORDERED: MIDAZOLAM 2 MG/2 ML VIAL ONE (09:13)
[2017-09-06] MEDS ORDERED: LACTATED RINGERS 1,000 ML IV ONE ×2 (09:45→11:02)
[2017-09-06] MEDS ORDERED: ceFAZolin 1,000 MG in SODIUM CHLORIDE 0.9% 1,000 ML IRRIGATION ONE ×2 (09:45→10:31)
[2017-09-06] MEDS ORDERED: ROPIVACAINE 1,100 MG, SODIUM CHLORIDE 0.9% 330 ML MISCELLANE PRN ×2 (10:26)
--- NOTE | 2017-09-06 10:26 | P.ONQ ---
Anesthesiology Proc Note - PNB - Peripheral Nerve Block Performed Left Adductor Canal Infusion Time Out Performed: Yes Procedure Start Time: :00 Procedure Stop Time: :06 Indication: Acute Post-Operative Pain, Requested by physician Sedation Type: Sedate with meaningful contact maintained Preparation: Sterile Dressing Catheter: Indwelling Needle Types: On-Q Needle Size: 100mm (4") Needle Gauge: 18 Technique: Ultrasound Injectate: 0.5% Ropivacaine (see comment for volume) (ropi .5% 20cc) Blood Aspirated: No Pain Paresthesia on Injection Noted: No Resistance on Injection: Normal Events: Uneventful and Well Tolerated
[2017-09-06] MEDS ORDERED: ONDANSETRON 4 MG/2 ML VIAL IVP PRN (10:53)
[2017-09-06] MEDS ORDERED: NALOXONE 0.4 MG/ML 1 ML VIAL IV PRN (10:53)
[2017-09-06] MEDS ORDERED: MAGNESIUM HYDROXIDE 2,400 MG/10 ML CUP PO PRN (10:53)
[2017-09-06] MEDS ORDERED: ACETAMINOPHEN TAB 325 MG TAB PO PRN (10:53)
[2017-09-06] MEDS ORDERED: HYDROmorphone 2 MG/ML 1 ML SYRINGE IVP PRN ×2 (10:53)
--- NOTE | 2017-09-06 11:24 | P.OP ---
Date of Procedure: 09/06/17 Preoperative Diagnosis: Left knee severe tricompartmental osteoarthrosis Postoperative Diagnosis: Same Procedure(s) Performed: Left total knee orcawabluhox-wjwzpitm-cnnwfqgi retaining Implants: Depuy Attune size 4 cemented tibial component, size 3 cemented tibial component , 9 mm articular surface, 32 mm cemented patellar component. This is a cruciate retaining implant. Anesthesia: regional, local, spinal Surgeon: Hernan Yeung Tile Roofer #1: Steven Napoles Estimated Blood Loss (ml): 50 Pathology: other (Bone fragments) Condition: stable Disposition: PACU Indications for Procedure: The patient is a 72-year-old female who presents with progressive left knee pain secondary to osteoarthrosis despite extensive conservative measures. A discussion of the risks and benefits of operative intervention versus continued conservative measures was made with the patient. She opted to proceed with surgery. Operative risks to include infection, neurovascular injury, development of blood clots, possible component loosening, possible component failure and need for second procedures was discussed. Informed consent was obtained. Operative Findings: As below Description of Procedure: The patient was brought to the operating room, and after induction of spinal anesthesia the left lower extremity was prepped and draped in normal fashion. The tourniquet was inflated to 270 mmHg. A longitudinal incision extending 3 finger breaths above the superior pole of patella extending to the medial aspect the tibial tubercle was then made. The skin and subcutaneous tissues were divided sharply. Electrocautery was used for hemostasis. A medial parapatellar arthrotomy was performed. The medial soft tissues to include the superficial and deep portions of the medial collateral ligament as well as the medial hamstring tendons were elevated subperiosteally. The patella was everted. A portion of the retropatellar fat pad was excised sharply. The knee was flexed. A starting hole was made in the distal femur 1 cm anterior to the posterior cruciate ligament origin. An intramedullary femoral guide was gently inserted planning on 5 valgus distal cut with 9 mm distal resection. The cutting block was pinned in place. The distal cut was then made. The posterior referencing sizing guide was utilized. A felt size 4 was most appropriate. 3 of external rotation was built into the system and verified off the trans-epicondylar axis and the posterior condyles. The cutting block was pinned in place. The anterior, posterior, and chamfer cuts were then made. The bone fragments were removed. The sulcus cut was made with the appropriate guide. The trial size 4 femoral component was placed and was fully seated. There was good anterior to posterior and medial to lateral fit. The distal peg holes were drilled. The trial component was removed. An extra medullary tibial guide was then placed. I planned on 7 posterior slope with 2 mm resection from the medial compartment. The extra medullary guide was in line with the tibial shaft and second metatarsal distally. The cutting block was pinned in place. The posterior cruciate ligament was protected with a retractor. The proximal tibial cut was made. The bone was removed in one fragment. The flexion and extension gaps were both tight therefore an additional 2 mm was resected utilizing cutting guide. The remnants of the medial and lateral menisci were excised at the capsular junction with electrocautery. The tibia sized most appropriate size 3. The trial femoral and tibial components were placed along with a 9 mm articular surface. I was able to obtain full flexion and extension with good stability with varus and valgus stress. I felt there was good soft tissue balance. After several flexion and extension cycles, the tibial rotation was marked with electrocautery in line with the medial one third of the tibial tubercle. Attention was then paid towards preparing the patella. A patella reamer was utilized taking senna 14 mm of bone stock. A good flush cut was made. The patella sized most appropriately 32 mm. The peg holes were drilled. The trial component was placed. The knee was taken through range of motion. I had good patellofemoral tracking with no hands technique. The trial components were then removed. The tibia was prepared in the appropriate rotation with appropriate drill and keel punch. The posterior tissues were injected with ropivacaine. The bony surfaces were prepared with pulsatile lavage and dried. The tibial component was then cemented in placed and was fully seated. Excess cement was removed. The femoral component was cemented in placed and was fully seated. Excess cement was removed. The trial 9 mm articular surface was placed in the knee was put in full extension. The patella component was cemented in placed and was fully seated. After the cement had sufficiently hardened, the knee was again taken through range of motion. Again I was able to obtain full flexion and extension with good stability with varus valgus stress and good soft tissue balance. The trial articular surface was removed and the final one inserted. This was fully seated. Care was taken to avoid any soft tissue interposition. Pulsatile lavage was again utilized. The tourniquet was deflated with approximately 60 minutes total tourniquet time. Final hemostasis was obtained with electrocautery. The second dose of IV TXA was given. The medial parapatellar arthrotomy was closed with #2 Ethibond suture. A deep drain was placed exiting laterally. The subcutaneous tissues were reapproximated with interrupted 2-0 Vicryl sutures. The skin was reapproximated with 3-0 subcuticular strata fix suture. Skin tape and adhesive was applied. A sterile dressing was applied. The patient was awoken from sedation and transferred to recovery room in good condition. Blood loss was estimated 50 mL. No complications were incurred. Sponge and needle counts were correct at the end the case.
--- NOTE | 2017-09-06 11:37 | XR ---
EXAMINATION TYPE: XR knee limited LT DATE OF EXAM: 09/06/2017 CLINICAL HISTORY: Left knee pain and arthritis status post total knee replacement. TECHNIQUE: Portable AP and crosstable lateral views of the knee are obtained immediately postoperati veldevin. COMPARISON: Prior left knee x-ray May 01, 2011 FINDINGS: Metallic hardware from total left knee arthroplasty is seen and appears satisfactory in al ignment and position. There is evidence of recent surgery with diffuse subcutaneous gas and swelling anteriorly and percutaneous surgical drain noted. IMPRESSION: METALLIC HARDWARE FROM TOTAL LEFT KNEE ARTHROPLASTY IS SATISFACTORY IN ALIGNMENT.
[2017-09-06] MEDS: traMADol 50 MG TAB PO PRN (13:47)
--- NOTE | 2017-09-06 14:42 | P.CONS ---
History of Present Illness - Reason for Consult Consult date: 09/06/17 Medical management - History of Present Illness This is a 72-year-old female. Her primary care physician is Dr. Cobos. She has a past medical history for hyperlipidemia, hypertension, SVT status post radiofrequency ablation, thyroid cancer, gastroesophageal reflux disease, trigeminal neuralgia. Patient has undergone left total knee arthroplasty with Dr. Yeung today. Patient is seen on the [facility] floor. She denies any chest pain, shortness of breath, nausea, vomiting, abdominal pain. Her pain is currently controlled. Q pump in place. Review of Systems All systems: negative Constitutional: Denies chills, Denies fever Eyes: denies blurred vision, denies pain Ears, nose, mouth and throat: Denies headache, Denies sore throat Cardiovascular: Denies chest pain, Denies shortness of breath Respiratory: Denies cough Gastrointestinal: Denies abdominal pain, Denies diarrhea, Denies nausea, Denies vomiting Genitourinary: Denies dysuria, Denies hematuria Musculoskeletal: Denies myalgias Integumentary: Denies pruritus, Denies rash Neurological: Denies numbness, Denies weakness Psychiatric: Denies anxiety, Denies depression Endocrine: Denies fatigue, Denies weight change Past Medical History Past Medical History: Cancer, Hypertension, Neurologic Disorder, Osteoarthritis (OA), Thyroid Disorder Additional Past Medical History / Comment(s): LBBB; TRIGEMINAL NEURALGIA, HX THYROID CA UTI RECENT TREATMENT. History of Any Multi-Drug Resistant Organisms: None Reported Past Surgical History: Cardiac Ablation, Heart Catheterization, Hysterectomy, Orthopedic Surgery Additional Past Surgical History / Comment(s): CECY knee arthroscopy; Gamma KNIFE TX TRIGEMINAL NEURALGIA; NASAL PROC; I&D FACIAL MOLE. thyroidectomy, heart cath x2, colonoscopy/polyp removed was benign, EP study and radiofrequency ablation.. Past Anesthesia/Blood Transfusion Reactions: Motion Sickness, Postoperative Nausea & Vomiting (PONV) Additional Past Anesthesia/Blood Transfusion Reaction / Comm: VERY CLAUSTROPHOBIC WITH ANYTHING CLOSE TO FACE INCL O2 TUBING Smoking Status: Never smoker Additional Past Alcohol Use History / Comment(s): Patient is a lifelong nonsmoker. She denies any medical marijuana, marijuana, street drug or alcohol use. - Past Family History Father Family Medical History: Cancer Additional Family Medical History / Comment(s): Father at age 79 from leukemia Son(s) Additional Family Medical History / Comment(s): Patient has 2 sons and one has osteoarthritis status post bilateral hip replacements. Daughter(s) Additional Family Medical History / Comment(s): Patient has one daughter with history of Arnold-Chiari. Mother Family Medical History: Cancer Additional Family Medical History / Comment(s): Mother at age 71 from lung cancer Father Brother(s) Family Medical History: Cancer Additional Family Medical History / Comment(s): Patient has one brother with history of prostate cancer, stroke, diabetes, hypertension. Sister(s) Family Medical History: Cancer Additional Family Medical History / Comment(s): BREAST CANCER Medications and Allergies Home Medications Medication Instructions Recorded Confirmed Type Cholecalciferol (Vitamin D3) 4,000 units PO DAILY 06/04/14 09/06/17 History [Vitamin D3] Levothyroxine Sodium [Synthroid] 88 mcg PO DAILY 05/16/15 09/06/17 History carBAMazepine [Carbatrol] 400 mg PO TID 08/26/16 09/06/17 History amLODIPine [Norvasc] 5 mg PO HS 03/08/17 09/06/17 History Amitriptyline HCl [Elavil] 20 mg PO HS 08/31/17 09/06/17 History Gabapentin [Neurontin] 300 mg PO BID 08/31/17 09/06/17 History Nitrofurantoin Monohyd/M-Cryst 100 mg PO Q12HR 08/31/17 09/06/17 History [Macrobid] Rivaroxaban [Xarelto] 10 mg PO DAILY #12 tab 09/06/17 Rx Allergies Allergy/AdvReac Type Severity Reaction Status Date / Time hydrocodone bitartrate Allergy Nausea & Verified 09/06/17 11:05 [From Vicodin] Vomiting codeine AdvReac Nausea & Verified 09/06/17 11:05 Vomiting BANDAID Allergy Rash/Hives Uncoded 08/31/17 11:47 Physical Exam Vitals: Vital Signs Temp Pulse Pulse Pulse Resp BP BP 09/06/17 13:40 97.4 F L 80 16 127/64 09/06/17 13:00 78 16 134/64 09/06/17 12:45 78 16 132/60 09/06/17 12:30 77 16 129/60 09/06/17 12:15 84 16 134/63 09/06/17 12:00 76 16 134/59 09/06/17 11:45 76 16 140/65 09/06/17 11:30 75 16 127/60 09/06/17 11:15 98.2 F 79 16 130/60 09/06/17 08:21 98.2 F 71 16 145/63 Pulse Ox 09/06/17 13:40 98 09/06/17 13:00 95 09/06/17 12:45 96 09/06/17 12:30 96 09/06/17 12:15 99 09/06/17 12:00 99 09/06/17 11:45 99 09/06/17 11:30 99 09/06/17 11:15 96 09/06/17 08:21 98 Intake and Output 09/05/17 09/06/17 09/06/17 22:59 06:59 14:59 Intake Total 2202 Output Total 1050 Balance 1152 Intake: IV 2102 Lactated Ringers 1,000 ml 50 @ 50 mls/hr IV .Q20H [facility] Rx#:[id number] Oral 100 Output: Urine 1000 Estimated Blood Loss 50 Gen: This is a 72-year-old female. She is sitting up in bed and appears to be in no acute distress. HEENT: Head is atraumatic, normocephalic. Pupils equal, round. Sclerae is anicteric. NECK: Supple. No JVD. No lymphadenopathy. No thyromegaly. LUNGS: Bilateral rhonchi. No intercostal retractions. HEART: Regular rate and rhythm. No murmur. ABDOMEN: Soft. Bowel sounds are present. No masses. No tenderness. EXTREMITIES: No pedal edema. No calf tenderness. Dressing in place to the left knee. Q pump in place. NEUROLOGICAL: Patient is awake, alert and oriented x3. Cranial nerves 2 through 12 are grossly intact. Assessment and Plan Plan: 1. Osteoarthritis status post total knee arthroplasty left. No postop complications. Q pump in place. Continue current pain management. Continue DVT and GI prophylaxis. Incentive spirometry added. 2. Hypothyroidism and thyroid cancer. Continue levothyroxine. 3. Gastroesophageal reflux disease. Continue Pepcid. 4. Vitamin D deficiency. On supplement. 5. Trigeminal neuralgia. Continue Tegretol, Neurontin, amitriptyline. 6. Hypertension,. Continue Norvasc. 7. Hyperlipidemia, not on medication. 8. History of SVT status post EP study and radiofrequency ablation, stable. 9. Gastrointestinal prophylaxis. Continue Pepcid. 10. DVT prophylaxis. Xarelto. Discharge plan: Return home Impression and plan of care have been directed as dictated by the signing physician. Maria Del Carmen Ayala nurse practitioner acting as scribe for signing physician.
[2017-09-06] MEDS: carBAMazepine 200 MG TAB PO SCH ×2 (15:23→22:02)
[2017-09-06] MEDS: ceFAZolin IN SWFI 2 GM/20 ML SYRINGE IVP SCH (15:23)
[2017-09-06] MEDS: HYDROcodone/APAP 5-325MG 1 EACH TAB PO PRN (19:50)
[2017-09-06] MEDS: SENNOSIDES-DOCUSATE SODIUM 1 EACH TAB PO SCH (20:04)
[2017-09-06] MEDS: AMITRIPTYLINE HCL 10 MG TAB PO SCH (20:05)
[2017-09-06] MEDS: amLODIPine 5 MG TAB PO SCH (20:05)
[2017-09-06] MEDS: GABAPENTIN 300 MG CAP PO SCH (20:05)
[2017-09-07] MEDS: ceFAZolin IN SWFI 2 GM/20 ML SYRINGE IVP SCH (00:52)
[2017-09-07] MEDS: HYDROcodone/APAP 5-325MG 1 EACH TAB PO PRN ×4 (00:54→17:54)
[2017-09-07] MEDS: LACTATED RINGERS 1,000 ML IV SCH (00:55)
[2017-09-07] MEDS: LEVOTHYROXINE 88 MCG TAB PO SCH (05:43)
--- NOTE | 2017-09-07 05:48 | P.PN ---
Progress Note - Text The patient is status post left adductor canal catheter placement. The catheter was placed for postoperative pain control, status post total left arthroplasty. Ropivacaine 0.2% is infusing at 8 mLs per hour. The patient has no complaints of left lower extremity numbness or weakness. Patient's VAS score is 2-3 -10. Assessment: Patient's adductor canal catheter is in place and working appropriately. Plan: continue infusion and adjust it as needed.
[2017-09-07 07:53] LABS: Basophils % (A) 0 %; Eosinophils # (A) 0.1 k/uL (0-0.7); Eosinophils % (A) 1 %; HCT 32.3 % (34.0-46.0); HGB 10.4 gm/dL (11.4-16.0); Lymphocytes % (A) 15 %; MCH 29.7 pg (25.0-35.0); MCHC 32.3 g/dL (31.0-37.0); Mean Platelet Volume 7.3; Monocytes # (A) 0.4 k/uL (0-1.0); Monocytes % (A) 6 %; Neutrophils # (A) 5.5 k/uL (1.3-7.7); Neutrophils % (A) 77 %; Platelet Count 155 k/uL (150-450); RBC 3.51 m/uL (3.80-5.40); RDW 13.2 % (11.5-15.5); WBC 7.1 k/uL (3.8-10.6)
[2017-09-07] MEDS: FAMOTIDINE 20 MG TAB PO SCH (08:00)
[2017-09-07] MEDS: carBAMazepine 200 MG TAB PO SCH ×3 (08:00→21:42)
[2017-09-07] MEDS: RIVAROXABAN 10 MG TAB PO SCH (08:00)
[2017-09-07] MEDS: GABAPENTIN 300 MG CAP PO SCH ×2 (08:01→21:42)
--- NOTE | 2017-09-07 11:08 | P.PN ---
Subjective Progress Note Date: 09/07/17 Principal diagnosis: Status post left total knee arthroplasty Patient is seen today resting in her hospital bed, her is present at bedside. Patient did have some lightheadedness when she ambulated initially. She denies any headaches, chest pain, shortness of breath. Objective - Vital Signs Vital signs: Vital Signs Temp 98.5 F 09/07/17 07:00 Pulse 78 09/07/17 07:00 Resp 16 09/07/17 07:00 BP 106/61 09/07/17 07:00 Pulse Ox 96 09/07/17 07:00 Intake & Output 09/06/17 09/07/17 09/07/17 18:59 06:59 18:59 Intake Total 2202 350 Output Total 1190 1245 150 Balance 1012 -895 -150 Weight 80.739 kg Intake: IV 2102 Lactated Ringers 1,000 ml 50 @ 50 mls/hr IV .Q20H [facility] Rx#:[id number] Intake, IV Titration 350 Amount Lactated Ringers 1,000 ml 350 @ 50 mls/hr IV .Q20H [facility] Rx#:[id number] Oral 100 Output: Drainage 140 70 Left Knee 140 70 Urine 1000 1175 150 Uretheral (Jose) 150 Estimated Blood Loss 50 Other: Voiding Method Indwelling Catheter Indwelling Catheter Indwelling Catheter - Exam Left lower extremity: Incision is clean, dry, and intact. The prineo tape is in good condition. There is minimal soft tissue swelling and ecchymosis surrounding the medial and lateral aspects of the incision. Calf is soft, no tenderness with palpation. Plantar flexion, dorsiflexion, EHL, FHL are intact. Sensory exam to light touch throughout the extremity is intact, dorsal pedis pulses 2+. - Labs CBC & Chem 7: 09/07/17 07:34 Labs: Abnormal Lab Results - Last 24 Hours (Table) 09/07/17 Range/Units 07:34 RBC 3.51 L (3.80-5.40) m/uL Hgb 10.4 L (11.4-16.0) gm/dL Hct 32.3 L (34.0-46.0) % Assessment and Plan Plan: Assessment: 1. Postop day 1 status post left total knee arthroplasty Plan: 1. Pain control, continue use of low-dose oral medication 2. Continue work with physical therapy and use of CPM 3. Encourage incentive spirometer 4. Ice and elevate/daily dressing changes 5. GI and DVT prophylaxis, continue Xarelto 10 mg daily 6. Medical recommendations 7. Discharge planning: Patient will likely be discharged home tomorrow
--- NOTE | 2017-09-07 11:10 | P.DS ---
Providers Date of admission: 09/06/17 07:49 Expected date of discharge: 09/08/17 Attending physician: Hernan Yeung Consults: 09/06/17 10:53 Consult Physician Routine Consulting Provider: Ramone Cobos Reason/Comments: medical management Do you want consulting provider notified?: Yes 09/06/17 13:31 Consult Physician Routine Consulting Provider: Ivone Boston Consult Reason/Comments: medical management Do you want consulting provider notified?: Yes Primary care physician: Ramone Cobos Hospital Course: Date of admission: 09/06/2017 Date of discharge: 09/08/2017 Admission diagnosis: Status post left total knee arthroplasty Discharge diagnosis: Same Attending physician: Dr. Yeung Surgical procedures: Left total knee arthroplasty Brief history: Patient is a 72-year-old female with a history of progressive primary left knee osteoarthritis. At this point patient has failed conservative treatment measures and has opted to proceed with a elective left total knee arthroplasty. Hospital course: Details of patient's surgery can be found in operative report. Patient tolerated the procedure well and was subsequently transported to orthopedic floor. Patient's orthopeidc and medical care was provided daily. Patient had daily laboratory tests performed for evaluation of overall blood counts. Patient had daily physical therapy to include strengthening range of motion as well as education with walker ambulation. Patient had daily CPM usage as part of their physical therapy program. Patient was treated with Xarelto for their postoperative DVT prophylaxis during their inpatient stay. Patient was noted to have a relatively uneventful postoperative course. Patient reported satisfactory pain control with oral pain medications by postoperative day 0. Patient showed satisfactory progress with physical therapy. Patient moved steadily through the program and had no difficulty meeting the goals by postoperative day 2. Given patient's otherwise satisfactory course and having met physical therapy goals, plan is to discharge patient home on postoperative day 2. Discharge condition/disposition: Patient will be discharged home in stable condition. Discharge medications: Instructions are given on resumption of patient's normal daily medications per primary care recommendation, in addition patient will be prescribed [place] 5 mg/325 mg, Colace 100 mg, Xarelto 10 mg. Discharge instructions: 1. Wound care and infection precautions, keep incision dry and covered while showering, no lotions, creams, moisturizers. No soaking, tubs, pools, hottubs. Do not scrub over the incision. 2. Weight-bear as tolerated with walker / cane until follow-up. 3. Ice and elevate when necessary. Do not exceed 20 minutes per hour with ice pack. 4. Utilize compression sleeve until seen at first follow up appointment. 5. Visiting nursing care. 6. Home physical therapy including home CPM. 7. Pain meds and anticoagulants per prescription. 8. Pain medication has potential to cause constipation. Increase oral fluid and fiber intake. Contact primary care provider if you have not had a bowel movement within 48 hours after discharge 9. No anti-inflammatory medication until discussed at first post operative visit, this including Motrin, Aleve, Mobic, Diclofenac. 10. Follow up in office at 2 weeks postop with Sukh Napoles PA-C 11. Follow up with your primary care doctor 7-10 days after discharge. 12. Contact [facility] with any questions, . Procedures: Left total knee arthroplasty Patient Condition at Discharge: Good Plan - Discharge Summary Discharge Rx Participant: Yes New Discharge Prescriptions: New Rivaroxaban [Xarelto] 10 mg PO DAILY #12 tab Docusate [Colace] 100 mg PO DAILY #30 capsule Hydrocodone/Acetaminophen [[place] 5-325] 1 each PO Q6HR PRN #40 tab PRN Reason: Pain No Action Cholecalciferol (Vitamin D3) [Vitamin D3] 4,000 units PO DAILY Levothyroxine Sodium [Synthroid] 88 mcg PO DAILY carBAMazepine [Carbatrol] 400 mg PO TID amLODIPine [Norvasc] 5 mg PO HS Nitrofurantoin Monohyd/M-Cryst [Macrobid] 100 mg PO Q12HR Gabapentin [Neurontin] 300 mg PO BID Amitriptyline HCl [Elavil] 20 mg PO HS Discharge Medication List Cholecalciferol (Vitamin D3) [Vitamin D3] 4,000 units PO DAILY 06/04/14 [History ] Levothyroxine Sodium [Synthroid] 88 mcg PO DAILY 05/16/15 [History] carBAMazepine [Carbatrol] 400 mg PO TID 08/26/16 [History] amLODIPine [Norvasc] 5 mg PO HS 03/08/17 [History] Amitriptyline HCl [Elavil] 20 mg PO HS 08/31/17 [History] Gabapentin [Neurontin] 300 mg PO BID 08/31/17 [History] Nitrofurantoin Monohyd/M-Cryst [Macrobid] 100 mg PO Q12HR 08/31/17 [History] Rivaroxaban [Xarelto] 10 mg PO DAILY #12 tab 09/06/17 [Rx] Docusate [Colace] 100 mg PO DAILY #30 capsule 09/08/17 [Rx] Hydrocodone/Acetaminophen [[place] 5-325] 1 each PO Q6HR PRN #40 tab 09/08/17 [Rx] Follow up Appointment(s)/Referral(s): [facility], [NON-STAFF] - Steven Napoles PAC [PHYSICIAN WASHERETTE MACHINE OPERATOR] - 09/21/17 3:10 pm Ramone Cobos MD [Primary Care Provider] - 1 Week Activity/Diet/Wound Care/Special Instructions: Orthopedic Discharge Instructions: 1. Wound care and infection precautions, keep incision dry and covered while showering, no lotions, creams, moisturizers. No soaking, pools, hot tubs. Do not scrub over incision. 2. Weight-bear as tolerated with walker / cane until follow-up. 3. Ice and elevate when necessary. Do not exceed 20 minutes per hour with ice pack. 4. Utilize compression sleeve until seen at first follow up appointment. 5. Visiting nursing care. 6. Home physical therapy including home CPM. 7. Pain meds and anticoagulants per prescription. 8. Pain medication has potential to cause constipation. Increase oral fluid and fiber intake. Contact primary care provider if you have not had a bowel movement within 48 hours after discharge. 9. No anti-inflammatory medication until discussed at first post operative visit, this including Motrin, Aleve, Mobic, Diclofenac. 10. Follow up in office at 2 weeks postop with Sukh Napoles PA-C 11. Follow up with your primary care doctor 7-10 days after discharge. 12. Contact [facility] with any questions, . Discharge Disposition: HOME WITH HOME HEALTH SERVICES
[2017-09-07] MEDS: traMADol 50 MG TAB PO PRN ×2 (13:31→21:42)
--- NOTE | 2017-09-07 14:42 | P.PN ---
Subjective Progress Note Date: 09/07/17 This is a 72-year-old female. Her primary care physician is Dr. Cobos. She has a past medical history for hyperlipidemia, hypertension, SVT status post radiofrequency ablation, thyroid cancer, gastroesophageal reflux disease, trigeminal neuralgia. Patient has undergone left total knee arthroplasty with Dr. Yeung today. Patient is seen on the [facility] floor. She denies any chest pain, shortness of breath, nausea, vomiting, abdominal pain. Her pain is currently controlled. Q pump in place. 09/07: Patient did have some dizziness and nausea today which may be related to taking too [place] at one time. Blood pressure 106/61. Pulse ox 96% on room air. Patient's on IV fluids which will be discontinued. Patient is scheduled for discharge home today. Patient is on Xarelto for DVT prophylaxis. Objective - Vital Signs Vital signs: Vital Signs Temp 98.5 F 09/07/17 07:00 Pulse 78 09/07/17 07:00 Resp 16 09/07/17 07:00 BP 106/61 09/07/17 07:00 Pulse Ox 96 09/07/17 07:00 Intake & Output 09/06/17 09/07/17 09/07/17 18:59 06:59 18:59 Intake Total 2202 350 Output Total 1190 1245 150 Balance 1012 -895 -150 Weight 80.739 kg Intake: IV 2102 Lactated Ringers 1,000 ml 50 @ 50 mls/hr IV .Q20H [facility] Rx#:[id number] Intake, IV Titration 350 Amount Lactated Ringers 1,000 ml 350 @ 50 mls/hr IV .Q20H [facility] Rx#:[id number] Oral 100 Output: Drainage 140 70 Left Knee 140 70 Urine 1000 1175 150 Uretheral (Jose) 150 Estimated Blood Loss 50 Other: Voiding Method Indwelling Catheter Indwelling Catheter Indwelling Catheter - Exam Gen: This is a 72-year-old female. She is sitting up in bed and appears to be in no acute distress. HEENT: Head is atraumatic, normocephalic. Pupils equal, round. Sclerae is anicteric. NECK: Supple. No JVD. No lymphadenopathy. No thyromegaly. LUNGS: Bilateral rhonchi. No intercostal retractions. HEART: Regular rate and rhythm. No murmur. ABDOMEN: Soft. Bowel sounds are present. No masses. No tenderness. EXTREMITIES: No pedal edema. No calf tenderness. Dressing in place to the left knee. Q pump in place. NEUROLOGICAL: Patient is awake, alert and oriented x3. Cranial nerves 2 through 12 are grossly intact. - Labs CBC & Chem 7: 09/07/17 07:34 Labs: Abnormal Lab Results - Last 24 Hours (Table) 09/07/17 Range/Units 07:34 RBC 3.51 L (3.80-5.40) m/uL Hgb 10.4 L (11.4-16.0) gm/dL Hct 32.3 L (34.0-46.0) % Assessment and Plan Plan: 1. Osteoarthritis status post total knee arthroplasty left. No postop complications. Q pump in place. Continue current pain management. Continue DVT and GI prophylaxis. Incentive spirometry added. 2. Hypothyroidism and thyroid cancer. Continue levothyroxine. 3. Gastroesophageal reflux disease. Continue Pepcid. 4. Vitamin D deficiency. On supplement. 5. Trigeminal neuralgia. Continue Tegretol, Neurontin, amitriptyline. 6. Hypertension,. Continue Norvasc. 7. Hyperlipidemia, not on medication. 8. History of SVT status post EP study and radiofrequency ablation, stable. 9. Gastrointestinal prophylaxis. Continue Pepcid. 10. DVT prophylaxis. Xarelto. Discharge plan: Return home with [facility] Impression and plan of care have been directed as dictated by the signing physician. Maria Del Carmen Ayala nurse practitioner acting as scribe for signing physician.
[2017-09-07] MEDS: AMITRIPTYLINE HCL 10 MG TAB PO SCH (21:43)
[2017-09-07] MEDS: amLODIPine 5 MG TAB PO SCH (21:43)
[2017-09-07] MEDS: SENNOSIDES-DOCUSATE SODIUM 1 EACH TAB PO SCH (21:43)
[2017-09-08] MEDS: HYDROcodone/APAP 5-325MG 1 EACH TAB PO PRN (00:47)
[2017-09-08] MEDS: LACTATED RINGERS 1,000 ML IV SCH (00:48)
[2017-09-08] MEDS: LEVOTHYROXINE 88 MCG TAB PO SCH (05:03)
[2017-09-08 07:27] VITALS: BP 153/67; PULSE 88; RESP 14; TEMP 98
--- NOTE | 2017-09-08 07:50 | P.PN ---
Progress Note - Text Anesthesia POD 2. Patient is status post left TKR under spinal anesthesia with a left adductor canal catheter placed for postoperative pain relief. With ropivacaine 0.2% running at 8 cc's per hour, the patient's VAS is (0, 4). Catheter site is clean dry and intact.
[2017-09-08] MEDS: FAMOTIDINE 20 MG TAB PO SCH (08:32)
[2017-09-08] MEDS: GABAPENTIN 300 MG CAP PO SCH (08:32)
[2017-09-08] MEDS: carBAMazepine 200 MG TAB PO SCH (08:32)
[2017-09-08] MEDS: RIVAROXABAN 10 MG TAB PO SCH (08:32)
[2017-09-08] MEDS: traMADol 50 MG TAB PO PRN ×2 (09:39→14:40)
--- NOTE | 2017-09-08 12:03 | P.PN ---
Subjective Progress Note Date: 09/08/17 Principal diagnosis: Status post left total knee arthroplasty Patient is seen today resting in her hospital bed, her is present at bedside. She denies any headaches, chest pain, shortness of breath. Objective - Vital Signs Vital signs: Vital Signs Temp 98 F 09/08/17 07:17 Pulse 88 09/08/17 07:17 Resp 14 09/08/17 07:17 BP 153/67 09/08/17 07:17 Pulse Ox 92 L 09/08/17 07:20 Intake & Output 09/07/17 09/08/17 09/08/17 18:59 06:59 18:59 Intake Total 400 120 Output Total 250 Balance 150 120 Intake: IV 400 Lactated Ringers 1,000 ml 400 @ 50 mls/hr IV .Q20H [facility] Rx#:[id number] Oral 120 Output: Urine 250 Uretheral (Jose) 150 Other: Voiding Method Indwelling Catheter Toilet # Voids 1 - Exam Left lower extremity: Incision is clean, dry, and intact. The prineo tape is in good condition. There is minimal soft tissue swelling and ecchymosis surrounding the medial and lateral aspects of the incision. Calf is soft, no tenderness with palpation. Plantar flexion, dorsiflexion, EHL, FHL are intact. Sensory exam to light touch throughout the extremity is intact, dorsal pedis pulses 2+. - Labs CBC & Chem 7: 09/07/17 07:34 Assessment and Plan Plan: Assessment: 1. Postop day #2 status post left total knee arthroplasty Plan: 1. Pain control, continue use of low-dose oral medication 2. Continue work with physical therapy and use of CPM 3. Encourage incentive spirometer 4. Ice and elevate/daily dressing changes 5. GI and DVT prophylaxis, continue Xarelto 10 mg daily 6. Medical recommendations 7. Discharge planning: Patient will be discharge home today Time with Patient: Less than 30
[2017-09-08] MEDS ORDERED: HYDROmorphone 2 MG TAB PO PRN ×2 (13:25→13:26)
--- NOTE | 2017-09-08 13:55 | P.PN ---
Subjective Progress Note Date: 09/08/17 This is a 72-year-old female. Her primary care physician is Dr. Cobos. She has a past medical history for hyperlipidemia, hypertension, SVT status post radiofrequency ablation, thyroid cancer, gastroesophageal reflux disease, trigeminal neuralgia. Patient has undergone left total knee arthroplasty with Dr. Yeung today. Patient is seen on the [facility] floor. She denies any chest pain, shortness of breath, nausea, vomiting, abdominal pain. Her pain is currently controlled. Q pump in place. 09/07: Patient did have some dizziness and nausea today which may be related to taking too [place] at one time. Blood pressure 106/61. Pulse ox 96% on room air. Patient's on IV fluids which will be discontinued. Patient is scheduled for discharge home today. Patient is on Xarelto for DVT prophylaxis. 09/08: Patient is scheduled for discharge home today. Patient did not tolerate [place] well and tramadol prescription has been provided. Objective - Vital Signs Vital signs: Vital Signs Temp 98 F 09/08/17 07:17 Pulse 88 09/08/17 07:17 Resp 14 09/08/17 07:17 BP 153/67 09/08/17 07:17 Pulse Ox 92 L 09/08/17 07:20 Intake & Output 09/07/17 09/08/17 09/08/17 18:59 06:59 18:59 Intake Total 400 120 Output Total 250 Balance 150 120 Intake: IV 400 Lactated Ringers 1,000 ml 400 @ 50 mls/hr IV .Q20H [facility] Rx#:[id number] Oral 120 Output: Urine 250 Uretheral (Jose) 150 Other: Voiding Method Indwelling Catheter Toilet # Voids 1 - Exam Gen: This is a 72-year-old female. She is sitting up in bed and appears to be in no acute distress. HEENT: Head is atraumatic, normocephalic. Pupils equal, round. Sclerae is anicteric. NECK: Supple. No JVD. No lymphadenopathy. No thyromegaly. LUNGS: Bilateral rhonchi. No intercostal retractions. HEART: Regular rate and rhythm. No murmur. ABDOMEN: Soft. Bowel sounds are present. No masses. No tenderness. EXTREMITIES: No pedal edema. No calf tenderness. Dressing in place to the left knee. Q pump in place. NEUROLOGICAL: Patient is awake, alert and oriented x3. Cranial nerves 2 through 12 are grossly intact. - Labs CBC & Chem 7: 09/07/17 07:34 Assessment and Plan Plan: 1. Osteoarthritis status post total knee arthroplasty left. No postop complications. Q pump in place. Continue current pain management. Continue DVT and GI prophylaxis. Incentive spirometry added. 2. Hypothyroidism and thyroid cancer. Continue levothyroxine. 3. Gastroesophageal reflux disease. Continue Pepcid. 4. Vitamin D deficiency. On supplement. 5. Trigeminal neuralgia. Continue Tegretol, Neurontin, amitriptyline. 6. Hypertension,. Continue Norvasc. 7. Hyperlipidemia, not on medication. 8. History of SVT status post EP study and radiofrequency ablation, stable. 9. Gastrointestinal prophylaxis. Continue Pepcid. 10. DVT prophylaxis. Xarelto. Discharge plan: Return home with [facility] Impression and plan of care have been directed as dictated by the signing physician. Maria Del Carmen Ayala nurse practitioner acting as scribe for signing physician.
== END 2017-09-08 14:50 | disposition home health service (06) | DRG 470 ==
LOC: 2ORMAIN 07:49 → 3SUR 11:15
PROVIDERS: ADMIT Orthopaedic Surgery; ATTEND Orthopaedic Surgery
PROC: 0SRD0J9 Replacement of Left Knee Joint with Synthetic Substitute, Cemented, Open Approach (ICD-10-PCS; principal; 2017-09-06 10:40)
DX: M17.12 Unilateral primary osteoarthritis, left knee (principal); E55.9 Vitamin D deficiency, unspecified; E78.5 Hyperlipidemia, unspecified; F40.240 Claustrophobia; I10 Essential (primary) hypertension; K21.9 Gastro-esophageal reflux disease without esophagitis; G50.0 Trigeminal neuralgia; E89.0 Postprocedural hypothyroidism; Z79.01 Long term (current) use of anticoagulants; Z79.899 Other long term (current) drug therapy; Z80.1 Family history of malignant neoplasm of trachea, bronchus and lung; Z80.3 Family history of malignant neoplasm of breast; Z80.6 Family history of leukemia; Z82.3 Family history of stroke; Z82.49 Family history of ischemic heart disease and other diseases of the circulatory system; Z83.3 Family history of diabetes mellitus; Z85.850 Personal history of malignant neoplasm of thyroid; Z90.710 Acquired absence of both cervix and uterus; Z79.1 Long term (current) use of non-steroidal anti-inflammatories (NSAID); Z79.890 Hormone replacement therapy
CPT/HCPCS: 85025; 88305; 88311

== ENCOUNTER 2017-12-27 09:32 | Day surgery (SDC) | payer MEDICARE ==
[2017-12-22 09:53] VITALS: BMI 32.5
--- NOTE | 2017-12-26 09:22 | HP ---
HISTORY AND PHYSICAL CHIEF COMPLAINT: Left knee stiffness. HISTORY OF PRESENT ILLNESS: The patient is a 72-year-old retired female who presents after undergoing a left total knee arthroplasty on 09/06/2017 with persistent stiffness. She had undergone therapy, however, had to miss some because of recent hospitalization. She is ambulating independently. She denies fevers or chills. She had no other postoperative complications. PAST MEDICAL HISTORY: Significant for arthritis, heart disease, reflux disease, hypertension, and depression along with trigeminal neuralgia. PAST SURGICAL HISTORY: Significant for previous cardiac catheterization, hysterectomy, cardiac procedure, left total knee arthroplasty. CURRENT MEDICATIONS: 1. Amlodipine. 2. Carbamazepine. 3. Synthroid. ALLERGIES: She notes sensitivity to VICODIN. FAMILY HISTORY: Significant for cancer. SOCIAL HISTORY: Negative for current tobacco or alcohol use. REVIEW OF SYSTEMS: Sixteen-point review of systems otherwise reviewed and is noncontributory. PHYSICAL EXAMINATION: On examination, the patient is approximately 5 feet 2 inches, 173 pounds of mesomorphic habitus. HEENT exam is nonfocal. Neck is supple. She has painless passive motion of her left hip. On examination of her left knee, the incision is well healed. She has no effusion. She has no joint line tenderness. Active motion -6 to 90 degrees of flexion. Collaterals are stable. She has good extensor strength. Her distal neurovascular exam appears intact in the left lower extremity. Previous x-rays of the left knee obtained in the office show a total knee arthroplasty with components in good position. IMPRESSION: 1. Status post left total knee arthroplasty. 2. Left knee arthrofibrosis. RECOMMENDATIONS: I talked to the patient regarding her condition and treatment options. At this point, I recommend proceeding with manipulation under anesthesia. We will likely have her start therapy directly after the procedure. We will also start a Medrol dose pack after the procedure. MMODL / IJN: [id number] /
[~2017-12-27 09:32] MED LIST changes: -ACETAMINOPHEN TAB 500 MG TAB PO ONE; -DEXAMETHASONE SOD PHOSPHATE 10 MG/ML 1 ML VIAL IV ONE; +LACTATED RINGERS 1,000 ML IV SCH; -MELOXICAM 7.5 MG TAB PO ONE; -ONDANSETRON 4 MG/2 ML VIAL IVP ONE; -TRANEXAMIC ACID 1,000 MG in SODIUM CHLORIDE 0.9% 50 ML IVPB ONE
[2017-12-27 10:05] VITALS: TEMP 97
[2017-12-27] MEDS ORDERED: LIDOCAINE 1% INJ 10MG/ML (20 ML MDV) ONE (10:59)
[2017-12-27] MEDS ORDERED: PROPOFOL 10 MG/ML 20 ML VIAL IV ONE (10:59)
[2017-12-27] MEDS ORDERED: KETOROLAC 30 MG/ML 1 ML VIAL ONE (10:59)
--- NOTE | 2017-12-27 11:19 | P.OP ---
Date of Procedure: 12/27/17 Preoperative Diagnosis: Arthrofibrosis left knee/status post left total knee arthroplasty Postoperative Diagnosis: Same Procedure(s) Performed: Manipulation under anesthesia left total knee arthroplasty Anesthesia: MAC Surgeon: Hernan Yeung Estimated Blood Loss (ml): 0 Pathology: none sent Condition: stable Disposition: PACU Indications for Procedure: The patient's a 72-year-old female who underwent previous left total knee arthroplasty presents with persistent left knee stiffness spite adequate rehabilitation. She otherwise had an uncomplicated postoperative course. A discussion of the risks and benefits of manipulation under anesthesia was made with the patient. She opted to proceed. Specific risks of this procedure to include fracture, tendon rupture, possible recurrence of stiffness and need for subsequent procedures was discussed. Informed consent was obtained. Operative Findings: As below Description of Procedure: The patient was brought to the recovery room, and after induction of IV sedation I then gently manipulated her left knee. Before the procedure her flexion was about 90. Moderate adhesions were encountered. I was able to obtain 125 of flexion with -5 full extension. She tolerated the procedure well. She was monitored until fully awake. No complications were incurred. There was no blood loss.
[2017-12-27 11:56] VITALS: RESP 18
[2017-12-27] MEDS ORDERED: ACETAMINOPHEN TAB 325 MG TAB PO ONE (12:15)
[2017-12-27 12:35] VITALS: BP 133/68; PULSE 68
== END 2017-12-27 12:35 | disposition home health service (06) ==
LOC: OR 09:32
PROVIDERS: ATTEND Orthopaedic Surgery
DX: M24.662 Ankylosis, left knee (principal); M19.90 Unspecified osteoarthritis, unspecified site; I10 Essential (primary) hypertension; Z96.652 Presence of left artificial knee joint; F32.9 Major depressive disorder, single episode, unspecified; G50.0 Trigeminal neuralgia; E78.5 Hyperlipidemia, unspecified; K21.9 Gastro-esophageal reflux disease without esophagitis; Z79.899 Other long term (current) drug therapy
CPT/HCPCS: 27570; J2001; J1885; J2704

== ENCOUNTER → 2018-05-29 | Outpatient (CLI) | payer MEDICARE ==
[2018-05-29 15:11] LABS: Carbamazepine (Tegretol) 4.7 ug/mL
== END | disposition home or self-care (01) ==
LOC: LABWHC1 13:58
PROVIDERS: ATTEND Family Medicine
DX: E03.9 Hypothyroidism, unspecified (principal); R56.9 Unspecified convulsions
CPT/HCPCS: 36415; 80156; 84443

== ENCOUNTER → 2018-07-10 | Outpatient (CLI) | payer MEDICARE ==
--- NOTE | 2018-07-11 11:53 | MM ---
Reason for exam: screening (asymptomatic). Last mammogram was performed 1 year ago. History: Patient is postmenopausal and has history of other cancer at age 70. Family history of breast cancer in maternal cousin at age 53 and breast cancer in sister at age 58. Took estrogen for 16 years 1 month beginning at age 46. Physical Findings: A clinical breast exam by your physician is recommended on an annual basis and results should be correlated with mammographic findings. MG 3D Screening Mammo W/Cad Bilateral CC and MLO view(s) were taken. Prior study comparison: July 01, 2017, bilateral MG screening mammo w CAD. June 21, 2016, bilateral MG screening mammo w CAD. The breast tissue is heterogeneously dense. This may lower the sensitivity of mammography. Stable benign calcifications. There is no discrete abnormality. No significant changes when compared with prior studies. ASSESSMENT: Benign, BI-RAD 2 RECOMMENDATION: Routine screening mammogram of both breasts in 1 year.
== END ==
LOC: RADMAMWWP 10:41
PROVIDERS: ATTEND Family Medicine
DX: Z12.31 Encounter for screening mammogram for malignant neoplasm of breast (principal)
CPT/HCPCS: 77063; 77067

== ENCOUNTER → 2019-07-12 | Outpatient (CLI) | payer MEDICARE ==
--- NOTE | 2019-07-12 08:05 | BD ---
EXAMINATION TYPE: Axial Bone Density DATE OF EXAM: 07/12/2019 COMPARISON: 02.14.2017 CLINICAL HISTORY: 74 YR OLD FEMALE....ICD-10 CODE: M81.0 OSTEOPOROSIS Height: 62 Weight: 178 FRAX RISK QUESTIONS: Secondary Osteoporosis: YES 3. Menopause before 45: YES AT AGE 43 RISK FACTORS HISTORY OF: Postmenopausal woman: YES, HYST AT AGE 43 Hyperparathyroidism: NO Adrenal Insufficiency: NO MEDICATIONS: Thyroid Medications: YES, SYNTHROID, FOR ABOUT 7 YRS Additional Medications: BP MEDS, VIT D, ANTI-SEIZURE MEDS Additional History: LT TKR, OSTEOARTHRITIS, TRI-GEMINAL NEURALGIA EXAM MEASUREMENTS: Bone mineral densitometry was performed using the [employer] System. Bone mineral density as measured about the Lumbar spine is: ----- L1-L4(G/cm2): 0.945 T Score Values are as follows: ----- L1: -2.4 ----- L2: -2.7 ----- L3: -1.7 ----- L4: -1.2 ----- L1-L4: -2.0 Bone mineral density has: Decreased -2.0% since study of: 02.14.2017 Bone mineral density about the R hip (g/cm2): 0.970 Bone mineral density about the L hip (g/cm2): 0.944 T Score values are as follows: -----R Neck: -1.3 -----L Neck: -1.2 -----R Total: -0.3 -----L Total: -0.5 Bone mineral density has: Increased 0.7% since study of: 02.14.2017 FRAX%s: THERE IS A 9.6% CHANCE FOR A MAJOR OSTEOPOROTIC FX AND A 1.4% FOR HIP.....PROBABILITY FOR F X IN 10 YRS TIME IMPRESSION: Osteopenia (T Score between -2.5 and -1). There is slightly increased risk of fracture and the patient may be considered for treatment. Re-Screen 2-5 years. NOTE: T-SCORE=SD OF THE YOUNG ADULT MEAN.
== END | disposition home or self-care (01) ==
LOC: RADBDWWP 07:12
PROVIDERS: ATTEND Family Medicine
DX: M81.0 Age-related osteoporosis without current pathological fracture (principal); M85.80 Other specified disorders of bone density and structure, unspecified site
CPT/HCPCS: 77080

== ENCOUNTER → 2019-08-29 | Outpatient (CLI) | payer MEDICARE ==
--- NOTE | 2019-08-29 18:10 | CONS ---
CONSULTATION DATE OF SERVICE: 08/29/2009 74-year-old lady who has been evaluated in the sleep center for possible obstructive sleep apnea-hypopnea syndrome. HISTORY OF PRESENT ILLNESS/SLEEP WAKE EVALUATION: Patient's usual sleep schedule from around around 9 to 9:30 p.m. until 7:30 a.m. Usually no problems with falling asleep. No TV in bedroom. According to her , she snores, has witnessed episodes of stopped breathing during sleep by him. She wakes up from sleep up to 3 times with 1 episode of nocturia. Usually she sleeps on the side position. No history of hypnagogic hallucinations, sleep paralysis or cataplexy. Usually she does not take any naps. [place] Sleepiness Scale is 7. PAST MEDICAL HISTORY: Positive for trigeminal neuralgia with episodes 1 or more than 1 times per month. Cardiac arrhythmia, left bundle branch block, hypertension, hypothyroidism, thyroid CA. Pneumonia. PAST SURGICAL HISTORY: Thyroidectomy for thyroid CA, total hysterectomy in 1988 for bleeding, right knee arthroscopic surgery. Right eye cataract surgery. MEDICATIONS: Thyroxine, amlodipine, carbamazepine, gabapentin, vitamin D3 supplement. FAMILY HISTORY: Hyperlipidemia, arthritis, pneumonia, snoring, cancer, acid reflux, thyroid problems. REVIEW OF SYSTEMS: Snoring, awakenings from sleep. Episodes of trigeminal neuralgia. PHYSICAL EXAM: A lady without distress. BP 125/59, HR 67, RR 15, height 5 feet 2 inches, weight 182.6. Body mass index 33.2, temperature 98.0, oxygen saturation at room air 95%. Oropharynx: Extremely low position of soft palate, Mallampati IV. Some restriction of nasal breathing. Neck 15.5 inches in circumference. NECK: Supple, no JVD. Thyroid is not palpable. LUNGS: Clear to percussion and to auscultation. Good air exchange. No wheezing or rhonchi. HEART: S1, S2 regular. No murmurs, gallops, or rubs. ABDOMEN: Soft and nontender. Bowel sounds are present. No organomegaly appreciated. EXTREMITIES: No clubbing or cyanosis. HRIS SPECIALIST: Awake, alert, and oriented X3. Slight decreasing of sensation on the right side of the face. IMPRESSION: 1. Snoring, witnessed episodes of stopped breathing during the sleep, extremely low position of soft palate. Awakenings from sleep with nocturia. Obstructive sleep apnea-hypopnea syndrome. 2. Trigeminal neuralgia, episodes of 1 or more times per month. 3. History of thyroid carcinoma, status post thyroidectomy on replacement with thyroid hormones. 4. History of cardiac arrhythmia, left bundle branch block. 5. Hypertension. 6. Status post total hysterectomy in 1988 for bleeding. 7. Status post total left knee replacement. 8. Lost smelling. 9. History of pneumonia 2 years ago. PLAN: 1. Polysomnography for evaluation of patient's breathing during sleep. 2. CPAP/BiPAP titration if sleep study confirms obstructive sleep apnea-hypopnea syndrome. 3. Preferable position during sleep on the side. 4. No driving if patient feels any sleepiness. 5. I will see patient for follow up visit to explain results of testing and following plan. Thank you very much for referring this patient for consultation. Sincerely, Jonathan Soriano MD, PhD, FAASM Diplomat of [place] [employer] [place] [employer] Senior Accounting Clerk of [facility] [place] MMODL / IJN: [id number] /
== END | disposition home or self-care (01) ==
LOC: SLEEP 13:41
PROVIDERS: ATTEND Internal Medicine
DX: R06.83 Snoring (principal); G50.0 Trigeminal neuralgia; I10 Essential (primary) hypertension; R43.8 Other disturbances of smell and taste; Z85.850 Personal history of malignant neoplasm of thyroid; Z86.79 Personal history of other diseases of the circulatory system; Z90.710 Acquired absence of both cervix and uterus; Z87.01 Personal history of pneumonia (recurrent); Z90.89 Acquired absence of other organs; Z79.899 Other long term (current) drug therapy
CPT/HCPCS: 99211

== ENCOUNTER → 2019-10-08 | Outpatient (CLI) | payer MEDICARE ==
[2019-10-08 11:00] LABS: Basophils % (A) 1 %; Eosinophils # (A) 0.1 k/uL (0-0.7); Eosinophils % (A) 2 %; HCT 42.1 % (34.0-46.0); HGB 13.7 gm/dL (11.4-16.0); Lymphocytes # (A) 1.2 k/uL (1.0-4.8); Lymphocytes % (A) 23 %; MCH 29.7 pg (25.0-35.0); MCHC 32.7 g/dL (31.0-37.0); MCV 90.9 fL (80.0-100.0); Mean Platelet Volume 8.1; Monocytes # (A) 0.3 k/uL (0-1.0); Monocytes % (A) 6 %; Neutrophils # (A) 3.4 k/uL (1.3-7.7); Neutrophils % (A) 66 %; Platelet Count 191 k/uL (150-450); RBC 4.62 m/uL (3.80-5.40); RDW 13.4 % (11.5-15.5); WBC 5.2 k/uL (3.8-10.6)
[2019-10-08 16:48] LABS: African American GFR (CKD) 84.8 (60.0-200.0); Albumin 4.3 g/dL (3.80-4.90); Albumin/Globulin Ratio 2.26 (1.60-3.17); Anion Gap 5.8 mmol/L (4.00-12.00); BUN/Creat Ratio 16.25 Ratio (12.00-20.00); Calcium 9.2 mg/dL (8.7-10.3); Carbon Dioxide 28.2 mmol/L (21.6-31.8); Globulin 1.9 g/dL (1.6-3.3); Non-African American GFR(CKD) 73.1 (60.0-200.0); Potassium 5.1 mmol/L (3.5-5.5); Total Bilirubin 0.4 mg/dL (0.2-1.2); Total Protein 6.2 g/dL (6.2-8.2)
== END | disposition home or self-care (01) ==
LOC: LABWHC1 09:47
PROVIDERS: ATTEND Family Medicine
DX: G50.0 Trigeminal neuralgia (principal)
CPT/HCPCS: 36415; 80053; 85025

== ENCOUNTER → 2020-02-06 | Outpatient (CLI) | payer MEDICARE ==
[2020-02-06 18:31] LABS: Chol/HDL Ratio 4.57
== END | disposition home or self-care (01) ==
LOC: LABWHC1 09:30
PROVIDERS: ATTEND Physician Assistant
DX: E78.5 Hyperlipidemia, unspecified (principal)
CPT/HCPCS: 36415; 80061

== ENCOUNTER → 2020-05-06 | Outpatient (CLI) | payer MEDICARE ==
[2020-05-06 21:24] LABS: Chol/HDL Ratio 3.63; LDL Cholesterol,Calculated 98.4 mg/dL (0.0-131.0); VLDL Calculation 27.6 mg/dL (5.00-40.00)
== END | disposition home or self-care (01) ==
LOC: LABWHC1 10:00
PROVIDERS: ATTEND Physician Assistant
DX: E78.5 Hyperlipidemia, unspecified (principal)
CPT/HCPCS: 36415; 80061

== ENCOUNTER → 2020-06-17 | Outpatient (CLI) | payer MEDICARE ==
[2020-06-17 14:36] LABS: Basophils % (A) 1 %; Eosinophils # (A) 0.1 k/uL (0-0.7); Eosinophils % (A) 2 %; HCT 39.7 % (34.0-46.0); HGB 13.4 gm/dL (11.4-16.0); Lymphocytes # (A) 1.4 k/uL (1.0-4.8); Lymphocytes % (A) 24 %; MCHC 33.8 g/dL (31.0-37.0); MCV 91.7 fL (80.0-100.0); Mean Platelet Volume 7.9; Monocytes # (A) 0.3 k/uL (0-1.0); Monocytes % (A) 4 %; Neutrophils # (A) 3.9 k/uL (1.3-7.7); Neutrophils % (A) 66 %; Platelet Count 182 k/uL (150-450); RBC 4.33 m/uL (3.80-5.40); RDW 13.4 % (11.5-15.5); WBC 5.9 k/uL (3.8-10.6)
[2020-06-17 20:25] LABS: Carbamazepine (Tegretol) 8.9 ug/mL (4.0-12.0)
[2020-06-17 21:39] LABS: African American GFR (CKD) 64.3 (60.0-200.0); Albumin/Globulin Ratio 1.9 (1.60-3.17); Anion Gap 12.9 mmol/L (4.00-12.00); Calcium 8.8 mg/dL (8.7-10.3); Carbon Dioxide 23.1 mmol/L (21.6-31.8); Globulin 2.1 g/dL (1.6-3.3); Non-African American GFR(CKD) 55.5 (60.0-200.0); Potassium 4.2 mmol/L (3.5-5.5); Total Bilirubin 0.3 mg/dL (0.2-1.2); Total Protein 6.1 g/dL (6.2-8.2)
== END | disposition home or self-care (01) ==
LOC: LABWHC1 12:48
PROVIDERS: ATTEND Family Medicine
DX: I10 Essential (primary) hypertension (principal); E55.9 Vitamin D deficiency, unspecified; G50.0 Trigeminal neuralgia
CPT/HCPCS: 36415; 80053; 80156; 82306; 84443; 85025

== ENCOUNTER → 2021-08-12 | Outpatient (CLI) | payer MEDICARE ==
--- NOTE | 2021-08-12 19:09 | BD ---
EXAMINATION TYPE: Axial Bone Density DATE OF EXAM: 08/12/2021 COMPARISON: 2019 CLINICAL HISTORY: Postmenopausal screening Height: 5 FT 2 IN Weight: 176 FRAX RISK QUESTIONS: Alcohol (3 or more units per day): NO Family History (Parent hip fracture): NO Glucocorticoids (More than 3mos): NO (Ex: prednisone, prednisolone, methylprednisolone, dexamethasone, and hydrocortisone). History of Fracture in Adulthood: NO Secondary Osteoporosis: 1. Type 1 Diabetes: NO 2. Hyperthyroidism: REMOVED 3. Menopause before 45: YES 4. Malnutrition: NO 5. Chronic liver disease: NO Rheumatoid Arthritis: YES Current Tobacco Use: NO RISK FACTORS HISTORY OF: Surgery to Spine/Hip(right/left)/Wrist (right/left): NO Family History of Osteoporosis: NO Active: YES Diet low in dairy products/other sources of calcium: NO Postmenopausal woman: TOTAL HYST AGE 43 Take estrogen and/or progesterone medications: TOOK HRT FOR APPROX 5 YEARS AFTER HYST Lost more than 2 inches in height since high school: Frequent falls: NO Poor Health: GOOD Hyperparathyroidism: NO Adrenal Insufficiency: NO MEDICATIONS: Thyroid Medications: YES Which medication: LEVOTHYROXINE How Long: APPROX SIX YEARS Additional Medications: LEVOTHYROXINE, VIT D , ANTI SEIZURE MEDS, BLOOD PRESSURE MEDS Additional History: LEFT KNEE REPLACEMENT AND TRI-GEMINAL NEURALGIA EXAM MEASUREMENTS: Bone mineral densitometry was performed using the [employer] System. Bone mineral density as measured about the Lumbar spine is: ----- L1-L4(G/cm2): 0.966 T Score Values are as follows: ----- L2: -2.5 ----- L3: -2.2 ----- L4: -0.6 ----- L1-L4: -1.8 Bone mineral density has: INCREASED 1.9 % since study of: 2019 Bone mineral density about the R hip (g/cm2): 0.851 Bone mineral density about the L hip (g/cm2): 0.886 T Score values are as follows: -----R Neck: -1.3 -----L Neck: -1.1 -----R Total: -0.6 -----L Total: -0.6 Bone mineral density has: DECREASED -2.6 % since study of: 2019 IMPRESSION: Osteopenia (T Score between -2.5 and -1). There is slightly increased risk of fracture and the patient may be considered for treatment. Re-Screen 2-5 years. NOTE: T-SCORE=SD OF THE YOUNG ADULT MEAN.
--- NOTE | 2021-08-13 11:02 | MM ---
Reason for exam: screening (asymptomatic). Last mammogram was performed 3 years and 1 month ago. History: Patient is postmenopausal and has history of other cancer at age 70. Family history of breast cancer in maternal cousin at age 53 and breast cancer in sister at age 58. Took estrogen for 16 years 1 month beginning at age 46. Physical Findings: A clinical breast exam by your physician is recommended on an annual basis and results should be correlated with mammographic findings. MG 3D Screening Mammo W/Cad Bilateral CC and MLO view(s) were taken. Prior study comparison: July 10, 2018, bilateral MG 3d screening mammo w/cad. July 01, 2017, bilateral MG screening mammo w CAD. There are scattered fibroglandular densities. There are benign appearing round calcifications bilaterally. There is no discrete abnormality. ASSESSMENT: Benign, BI-RAD 2 RECOMMENDATION: Routine screening mammogram of both breasts in 1 year.
== END | disposition home or self-care (01) ==
LOC: RADMAMWWP 09:51
PROVIDERS: ATTEND Family Medicine
DX: Z12.31 Encounter for screening mammogram for malignant neoplasm of breast (principal); M85.89 Other specified disorders of bone density and structure, multiple sites; Z78.0 Asymptomatic menopausal state; Z80.3 Family history of malignant neoplasm of breast
CPT/HCPCS: 77063; 77067; 77080

== ENCOUNTER 2022-01-14 22:37 | Emergency (ER) | payer MEDICARE ==
[2022-01-14 23:16] VITALS: BP 136/70; PULSE 66; RESP 16; TEMP 98.2
--- NOTE | 2022-01-15 00:13 | XR ---
EXAMINATION TYPE: XR hand complete LT DATE OF EXAM: 01/14/2022 COMPARISON: NONE HISTORY: Little finger injury TECHNIQUE: 3 views FINDINGS: There is some spurring of the IP joints of the fingers. I see no fracture nor dislocation. The metacarpals appear intact. The carpal bones are intact. There is spurring at the first carpometac arpal joint. IMPRESSION: There is some osteoarthritis. No fracture seen.
[2022-01-15] MEDS ORDERED: LIDOCAINE 1% INJ 10MG/ML (10 ML MDV) SQ STA (01:36)
[2022-01-15] MEDS ORDERED: BACITRACIN OINT 1 EACH PACKET TOPICAL ONE (01:36)
[2022-01-15] MEDS ORDERED: LIDOCAINE 1% INJ 10MG/ML (5 ML VIAL-PF) SQ STA (01:38)
[2022-01-15] MEDS ORDERED: CEPHALEXIN 500MG STARTER PACK 4 CAP BTL PO STA (02:00)
--- NOTE | 2022-01-15 02:05 | ED ---
Wound/Laceration HPI - General Chief Complaint: Extremity Injury, Upper Stated Complaint: left hand injury Time Seen by Provider: 01/15/22 01:00 Source: patient, RN notes reviewed, old records reviewed Mode of arrival: ambulatory Limitations: no limitations - History of Present Illness Initial Comments: This is a 76-year-old female presents today for evaluation of finger laceration occurred about 12 hours prior to arrival, patient did keep it bandaged throughout the day whenever time she took off the bandage and did reopening continued and persistent bleeding. Patient has no other injury noted. Immunizations including tetanus are up-to-date. -: hour(s) (12) Extremity Location: Left: Hand Place: work Patient Tetanus UTD: Yes Context: accidental Associated Symptoms: none Treatments Prior to Arrival: bandage - Related Data Home Medications Medication Instructions Recorded Confirmed Cholecalciferol (Vitamin D3) 4,000 units PO DAILY 06/04/14 12/22/17 [Vitamin D3] Levothyroxine Sodium [Synthroid] 88 mcg PO DAILY 05/16/15 12/27/17 amLODIPine [Norvasc] 5 mg PO HS 03/08/17 12/27/17 Cranberry Fruit Extract [Cranberry] 500 mg PO DAILY 12/22/17 12/27/17 Allergies Allergy/AdvReac Type Severity Reaction Status Date / Time hydrocodone bitartrate Allergy Nausea & Verified 01/14/22 23:10 [From Vicodin] Vomiting codeine AdvReac Nausea & Verified 01/14/22 23:10 Vomiting BANDAID Allergy Rash/Hives Uncoded 01/14/22 23:10 Review of Systems ROS Statement: Those systems with pertinent positive or pertinent negative responses have been documented in the HPI. ROS Other: All systems not noted in ROS Statement are negative. Past Medical History Past Medical History: Cancer, Hyperlipidemia, Hypertension, Neurologic Disorder, Osteoarthritis (OA), Supraventricular Tachycardia (SVT), Thyroid Disorder Additional Past Medical History / Comment(s): LBBB; TRIGEMINAL NEURALGIA- hospitalized in October for acute episode @[facility], hx. THYROID cancer History of Any Multi-Drug Resistant Organisms: None Reported Past Surgical History: Cardiac Ablation, Heart Catheterization, Hysterectomy, Joint Replacement, Orthopedic Surgery Additional Past Surgical History / Comment(s): RT knee arthroscopy; Gamma KNIFE TX TRIGEMINAL NEURALGIA; NASAL PROC; I&D FACIAL MOLE, thyroidectomy, col onoscopy, left knee replaced, rhizotomy of trigeminal nerve @[facility] October 2017 Past Anesthesia/Blood Transfusion Reactions: Motion Sickness Additional Past Anesthesia/Blood Transfusion Reaction / Comment(s): VERY CLAUSTROPHOBIC WITH ANYTHING CLOSE TO FACE INCL O2 TUBING Past Psychological History: No Psychological Hx Reported Smoking Status: Never smoker Past Alcohol Use History: None Reported Past Drug Use History: None Reported - Past Family History Father Family Medical History: Cancer Additional Family Medical History / Comment(s): Father at age 79 from wily kemia Son(s) Additional Family Medical History / Comment(s): Patient has 2 sons and one has osteoarthritis status post bilateral hip replacements. Daughter(s) Additional Family Medical History / Comment(s): Patient has one daughter with history of Arnold-Chiari. Mother Family Medical History: Cancer Additional Family Medical History / Comment(s): Mother at age 71 from lung cancer Father Brother(s) Family Medical History: Cancer Additional Family Medical History / Comment(s): Patient has one brother with history of prostate cancer, stroke, diabetes, hypertension. Sister(s) Family Medical History: Cancer Additional Family Medical History / Comment(s): BREAST CANCER General Exam Limitations: no limitations General appearance: alert, in no apparent distress Head exam: Present: atraumatic, normocephalic, normal inspection Eye exam: Present: normal appearance, PERRL, EOMI. Absent: scleral icterus, conjunctival injection, periorbital swelling ENT exam: Present: normal exam, mucous membranes moist Neck exam: Present: normal inspection. Absent: tenderness, meningismus, lymphadenopathy Respiratory exam: Present: normal lung sounds bilaterally. Absent: respiratory distress, wheezes, rales, rhonchi, stridor Cardiovascular Exam: Present: regular rate, normal rhythm, normal heart sounds. Absent: systolic murmur, diastolic murmur, rubs, gallop, clicks GI/Abdominal exam: Present: soft, normal bowel sounds. Absent: distended, tenderness, guarding, rebound, rigid Extremities exam: Present: normal inspection, full ROM, normal capillary refill, other (Patient does have laceration the dorsal aspect of her little finger on her left hand 3 cm). Absent: tenderness, pedal edema, joint swelling, calf tenderness Back exam: Present: normal inspection Neurological exam: Present: alert, oriented X3, CN II-XII intact Psychiatric exam: Present: normal affect, normal mood Skin exam: Present: warm, dry, intact, normal color. Absent: rash Course Vital Signs 01/14/22 23:10 Temperature 98.2 F Pulse Rate 66 Respiratory 16 Rate Blood Pressure 136/70 O2 Sat by Pulse 98 Oximetry - Reevaluation(s) Reevaluation #1: 01/15/22 01:03 Medical record is reviewed Reevaluation #2: 01/15/22 01:44 Patient informed of results and questions answered Patient symptoms are improved laceration is repaired Medical Decision Making - Medical Decision Making 76 female to the ER for evaluation. He had several left finger laceration wall doing some work yesterday. Laceration is repaired here in the ER she will continue to watch for range of motion of that joint as she is having trouble no pain, will follow-up with orthopedics if there is any signs of decreased range of motion. - Radiology Data Radiology results: report reviewed (X-ray left hand is negative for injury), image reviewed Disposition Clinical Impression: Laceration of left little finger Disposition: HOME SELF-CARE Condition: Good Instructions (If sedation given, give patient instructions): Care For Your Stitches (ED) Is patient prescribed a controlled substance at d/c from ED?: No Referrals: Ramone Cobos MD [Primary Care Provider] - 1-2 days Celsa Valencia DO [Doctor of Osteopathic Medicine] - 1-2 days Decision Time: 02:00
== END 2022-01-15 02:35 | disposition home or self-care (01) ==
LOC: EC 22:37
DX: S61.217A Laceration without foreign body of left little finger without damage to nail, initial encounter (principal); I10 Essential (primary) hypertension; E78.5 Hyperlipidemia, unspecified; M19.90 Unspecified osteoarthritis, unspecified site; E07.9 Disorder of thyroid, unspecified; Z79.890 Hormone replacement therapy; Z79.899 Other long term (current) drug therapy; Z88.5 Allergy status to narcotic agent; W23.0XXA Caught, crushed, jammed, or pinched between moving objects, initial encounter
CPT/HCPCS: 99283

== ENCOUNTER → 2022-08-23 | Outpatient (CLI) | payer MEDICARE ==
--- NOTE | 2022-08-24 09:01 | MM ---
Reason for Exam: Screening (asymptomatic). Last screening mammogram was performed 12 month(s) ago. Patient History: Menarche at age 13. First Full-Term at age 19. Left ovary removed at age 46. Right ovary removed at age 46. Hysterectomy at age 46. Postmenopausal. Other cancer, age 70. Estrogen for 16 years, 1 month, from age 46 until age 62. Maternal cousin had breast cancer, age 53. Sister had breast cancer, age 58. Risk Values: Suzanne 5 year model risk: 3.3%. NCI Lifetime model risk: 6.6%. Prior Study Comparison: 07/01/2017 Bilateral Screening Mammogram, [facility]. 07/10/2018 Bilateral Screening Mammogram, [facility]. 08/12/2021 Bilateral Screening Mammogram, [facility]. Tissue Density: There are scattered fibroglandular densities. Findings: Analyzed By CAD. There is no suspicious group of microcalcifications or new suspicious mass in either breast. Benign-appearing round calcifications bilaterally. Overall Assessment: Benign, BI-RAD 2 Management: Screening Mammogram of both breasts in 1 year. A clinical breast exam by your physician is recommended on an annual basis and results should be correlated with mammographic findings. Electronically signed and approved by: Martin Smith D.O.
== END | disposition home or self-care (01) ==
LOC: RADMAMWWP 10:10
PROVIDERS: ATTEND Family Medicine
DX: Z12.31 Encounter for screening mammogram for malignant neoplasm of breast (principal); Z78.0 Asymptomatic menopausal state; Z80.3 Family history of malignant neoplasm of breast
CPT/HCPCS: 77063; 77067

== ENCOUNTER → 2023-08-30 | Outpatient (CLI) | payer MEDICARE ==
--- NOTE | 2023-08-31 09:25 | MM ---
Reason for Exam: Screening (asymptomatic). Last screening mammogram was performed 12 month(s) ago. Patient History: Menarche at age 13. First Full-Term at age 19. Left ovary removed at age 46. Right ovary removed at age 46. Hysterectomy at age 46. Postmenopausal. Other cancer, age 70. Estrogen for 16 years, 1 month, from age 46 until age 62. Maternal cousin had breast cancer, age 53. Sister had breast cancer, age 58. Risk Values: Suzanne 5 year model risk: 3.2%. NCI Lifetime model risk: 6.2%. Prior Study Comparison: 07/10/2018 Bilateral Screening Mammogram, [facility]. 08/12/2021 Bilateral Screening Mammogram, [facility]. 08/23/2022 Bilateral MG 3D screening mammo w/cad, [facility]. Tissue Density: There are scattered fibroglandular densities. Findings: Analyzed By CAD. There is no suspicious group of microcalcifications or new suspicious mass. Overall Assessment: Negative, BI-RAD 1 Management: Screening Mammogram of both breasts in [address] [facility] will attempt to contact patient to return for supplemental views and ultrasound if indicated. Patient should continue monthly self-breast exams. A clinical breast exam by your physician is recommended on an annual basis. This exam should not preclude additional follow-up of suspicious palpable abnormalities. Note on Suzanne scores and lifetime risk: 1. A Suzanne score greater than 3% is considered moderate risk. If this is the case, consider specialist referral to assess eligibility for a risk reducing agent. 2. If overall lifetime risk for the development of breast cancer is 20% or higher, the patient may qualify for future screening with alternating mammogram and breast MRI. Electronically signed and approved by: Delio Khalil DO
== END | disposition home or self-care (01) ==
LOC: RADMAMWWP 07:33
PROVIDERS: ATTEND Family Medicine
DX: Z12.31 Encounter for screening mammogram for malignant neoplasm of breast (principal); Z80.3 Family history of malignant neoplasm of breast; Z78.0 Asymptomatic menopausal state
CPT/HCPCS: 77063; 77067

== ENCOUNTER 2023-09-22 12:45 | Observation (INO) | payer MEDICARE ==
--- NOTE | 2023-09-22 13:27 | ED ---
Dizziness HPI - General Source: patient, family, RN notes reviewed Mode of arrival: ambulatory Limitations: no limitations <Elmer Raymond - Last Filed: 09/22/23 13:19> <Delio Coy - Last Filed: 09/22/23 17:02> - General Chief Complaint: Dizziness Stated Complaint: dizziness Time Seen by Provider: 09/22/23 12:59 - History of Present Illness Initial Comments: 78-year-old female presents emergency department with chief complaint of possible TIA. Patient states she saw her abrasive grader Dr. Evans in which she was asked planed that she was having difficulty getting words out. Patient was diagnosed with TIA per abrasive grader and was given order for CT, recommend to have echocardiogram and Holter monitor. Patient states she still feels like she is having symptoms she complains that her whole body feels weak and she is having issues with her trigeminal neuralgia. (Elmer Raymond) This 78-year-old female presents with complaint of some expressive aphasia. She states that yesterday she developed this expressive aphasia which may have only lasted 15 minutes or so. She states that she was trying to talk on the phone with one of her friends and she could not get the correct words out. She also complains of diffuse generalized weakness throughout her entire body. She denie s any localized weakness. She denies any paresthesias. She does complain of a headache primarily on the right side. She does have a history of trigeminal neuralgia. She saw her abrasive grader yesterday and he told her that she may potentially be having a TIA and to call her neurologist. She talked to her neurologist this morning out of [place] and they told her to come to the emergency department. Patient denies any history of CVA or TIA. She denies any problems with coordination or localized weakness. She has had no further problems with speech, vision, ambulation, or other neurologic complaints. She does have a history of trigeminal neuralgia and sees her neurologist for this. No other complaints or modifying factors. She does state that her abrasive grader feels as though she may need an implantable event-type monitor and wanted her to have a MRI scan while hospitalized because this would need be done before he puts this device in her chest. (Delio Coy) - Related Data Home Medications Medication Instructions Recorded Confirmed Cholecalciferol (Vitamin D3) 4,000 units PO DAILY 06/04/14 12/22/17 [Vitamin D3] Levothyroxine Sodium [Synthroid] 88 mcg PO DAILY 05/16/15 12/27/17 amLODIPine [Norvasc] 5 mg PO HS 03/08/17 12/27/17 Cranberry Fruit Extract [Cranberry] 500 mg PO DAILY 12/22/17 12/27/17 Allergies Allergy/AdvReac Type Severity Reaction Status Date / Time hydrocodone bitartrate Allergy Nausea & Verified 09/22/23 13:10 [From Vicodin] Vomiting codeine AdvReac Nausea & Verified 09/22/23 13:10 Vomiting BANDAID Allergy Rash/Hives Uncoded 09/22/23 13:10 Review of Systems ROS Other: All systems not noted in ROS Statement are negative. <Elmer Raymond - Last Filed: 09/22/23 13:19> ROS Other: All systems not noted in ROS Statement are negative. <Delio Coy - Last Filed: 09/22/23 17:02> ROS Statement: Those systems with pertinent positive or pertinent negative responses have been documented in the HPI. Past Medical History Past Medical History: Cancer, Hyperlipidemia, Hypertension, Neurologic Disorder, Osteoarthritis (OA), Supraventricular Tachycardia (SVT), Thyroid Disorder Additional Past Medical History / Comment(s): LBBB; TRIGEMINAL NEURALGIA- hospitalized in October for acute episode @[facility], hx. THYROID cancer History of Any Multi-Drug Resistant Organisms: None Reported Past Surgical History: Cardiac Ablation, Heart Catheterization, Hysterectomy, Joint Replacement, Orthopedic Surgery Additional Past Surgical History / Comment(s): RT knee arthroscopy; Gamma KNIFE TX TRIGEMINAL NEURALGIA; NASAL PROC; I&D FACIAL MOLE, thyroidectomy, colonoscopy, left knee replaced, rhizotomy of trigeminal nerve @[facility] October 2017 Past Anesthesia/Blood Transfusion Reactions: Motion Sickness Additional Past Anesthesia/Blood Transfusion Reaction / Comment(s): VERY CLAUSTROPHOBIC WITH ANYTHING CLOSE TO FACE INCL O2 TUBING Past Psychological History: No Psychological Hx Reported Smoking Status: Never smoker Past Alcohol Use History: None Reported Past Drug Use History: None Reported - Past Family History Father Family Medical History: Cancer Additional Family Medical History / Comment(s): Father at age 79 from leukemia Son(s) Additional Family Medical History / Comment(s): Patient has 2 sons and one has osteoarthritis status post bilateral hip replacements. Daughter(s) Additional Family Medical History / Comment(s): Patient has one daughter with history of Arnold-Chiari. Mother Family Medical History: Cancer Additional Family Medical History / Comment(s): Mother at age 71 from lung cancer Father Brother(s) Family Medical History: Cancer Additional Family Medical History / Comment(s): Patient has one brother with history of prostate cancer, stroke, diabetes, hypertension. Sister(s) Family Medical History: Cancer Additional Family Medical History / Comment(s): BREAST CANCER <Elmer Raymond - Last Filed: 09/22/23 13:19> General Exam Limitations: no limitations <Elmer Raymond - Last Filed: 09/22/23 13:19> <Delio Coy - Last Filed: 09/22/23 17:02> - General Exam Comments Initial Comments: Visual Physical Exam Vital signs reviewed General: Well-appearing, nontoxic, no acute distress. Head: Normocephalic, atraumatic Eyes: PERRLA, EOMI ENT: Airway patent Chest: Nonlabored breathing Skin: No visual rash, normal skin tone Neuro: Alert and oriented 3 Musculoskeletal: No gross abnormalities (Elmer Raymond) GENERAL: The patient is well nourished and well hydrated. VITAL SIGNS: Heart rate, blood pressure, respiratory rate reviewed as recorded in nurse's notes. EYES: Pupils are round and reactive. Extraocular movements are intact. No conjunctival / lid redness or swelling. ENT: No external evidence of injury, swelling, or ecchymosis. Airway is patent. Throat is clear. NECK: Nontender. No swelling or evidence of injury. No subcutaneous emphysema. Trachea is midline. No thyroid mass. HEART: Regular rate and rhythm. Good peripheral pulses. LUNGS/CHEST: Breath sounds clear and equal bilaterally. No rales, rhonchi, or wheezes. No ecchymosis, subcutaneous emphysema, or tenderness. ABDOMEN: Abdomen soft without tenderness. No palpable masses or organomegaly. No peritoneal signs. No abdominal wall swelling or ecchymosis. EXTREMITIES: No extremity tenderness. Normal muscle tone and function. No thorac olumbar tenderness. NEUROLOGIC: Patient notes slight decreased sensation to the proximal left upper extremity. Cranial nerve exam reveals face is symmetrical, tongue is midline, speech is clear. NIH score is zero. SKIN: No abrasions or ecchymosis is noted. No induration or masses noted. PSYCHIATRIC: Alert and oriented. Appropriate behavior and judgment. (Delio Coy) Course Vital Signs 09/22/23 13:05 Temperature 98 F Pulse Rate 65 Respiratory 18 Rate Blood Pressure 125/76 O2 Sat by Pulse 95 Oximetry Medical Decision Making <Elmer Raymond - Last Filed: 09/22/23 13:19> - Lab Data Result diagrams: 09/22/23 13:33 09/22/23 13:33 <Delio Coy - Last Filed: 09/22/23 17:02> - Medical Decision Making I completed the quick note portion of this chart signed Elmer Raymond PA-C (Elmer Raymond) The patient was seen and examined. All diagnostics are reviewed to this point. IV is established. Laboratory urinalysis does not show any acute abnormalities. Patient does receive an aspirin. She also receives some Tylenol for her headache. Noncontrast computed tomography scan of the brain does not show any acute abnormalities per my interpretation and radiologists interpretation. She does still note some diffuse generalized weakness as well as headache. It is felt as though she benefit from admission to the hospital for further workup. She may need additional testing such as CT angiogram of the neck and MRI scanning. Patient is agreeable with this plan. Case is discussed with Thelma from internal medicine and was agreeable with admission. Was pt. sent in by a medical professional or institution ([facility] [place], CONCRETE TESTER, urgent care, hospital, or usp...) When possible be specific @ -Patient was sent in by her neurologist. Did you speak to anyone other than the patient for history (EMS, parent, family, police, friend...)? What history was obtained from this source @ - is present and also helps with history. Did you review nursing and triage notes (agree or disagree)? Why? @ -I reviewed and agree with nursing and triage notes Were old charts reviewed (outside hosp., previous admission, EMS record, old EKG, old radiological studies, urgent care reports/EKG's, usp records)? Report findings @ -No old charts were reviewed Differential Diagnosis (chest pain, altered mental status, abdominal pain women, abdominal pain men, vaginal bleeding, weakness, fever, dyspnea, syncope, headache, dizziness, GI bleed, back pain, seizure, CVA, palpatations, mental health, musculoskeletal)? @ -TIA, CVA, expressive aphasia, headache, intracranial bleed EKG interpreted by me (3pts min.). @ -As above X-rays interpreted by me (1pt min.). @ -None done CT interpreted by me (1pt min.). @ -As above U/S interpreted by me (1pt. min.). @ -None done What testing was considered but not performed or refused? (CT, X-rays, U/S, labs)? Why? @ -None What meds were considered but not given or refused? Why? @ -None Did you discuss the management of the patient with other professionals (professionals i.e. , PA, CONCRETE TESTER, lab, RT, psych nurse, home health care social worker, cork molder, teacher, media liaison officer, family preservation caseworker)? Give summary @ -Case is discussed with internal medicine was agreeable with admission. Was smoking cessation discussed for >3mins.? @ -No Was critical care preformed (if so, how long)? @ -No Were there social determinants of health that impacted care today? How? (Juan elessness, low income, unemployed, alcoholism, drug addiction, transportation, low edu. Level, literacy, decrease access to med. care, fci, rehab)? @ -No Was there de-escalation of care discussed even if they declined (Discuss DNR or withdrawal of care, Hospice)? DNR status @ -No What co-morbidities impacted this encounter? (DM, HTN, Smoking, COPD, CAD, Cancer, CVA, ARF, Chemo, Hep., AIDS, mental health diagnosis, sleep apnea, morbid obesity)? @ -Trigeminal neuralgia Was patient admitted / discharged? Hospital course, mention meds given and route, prescriptions, significant lab abnormalities, going to OR and other pertinent info. @ -Patient was admitted to the hospital in observation status. Please see above. Undiagnosed new problem with uncertain prognosis? @ -No Drug Therapy requiring intensive monitoring for toxicity (Heparin, Nitro, Insulin, Cardizem)? @ -No Were any procedures done? @ -No Diagnosis/symptom? @ -Expressive aphasia, TIA, headache. Acute, or Chronic, or Acute on Chronic? @ -Acute Uncomplicated (without systemic symptoms) or Complicated (systemic symptoms)? @ -Uncomplicated Side effects of treatment? @ -No Exacerbation, Progression, or Severe Exacerbation? @ -No Poses a threat to life or bodily function? How? (Chest pain, [place], [place], pneumonia, PE, COPD, DKA, ARF, appy, cholecystitis, CVA, Diverticulitis, Homicidal, Suicidal, threat to staff... and all critical care pts) @ -No (Delio Coy) - Lab Data Lab Results 09/22/23 09/22/23 09/22/23 Range/Units 13:33 13:33 13:33 WBC 5.7 (3.8-10.6) k/uL RBC 4.49 (3.80-5.40) m/uL Hgb 13.5 (11.4-16.0) gm/dL Hct 41.2 (34.0-46.0) % MCV 91.9 (80.0-100.0) fL MCH 30.0 (25.0-35.0) pg MCHC 32.6 (31.0-37.0) g/dL RDW 13.6 (11.5-15.5) % Plt Count 184 (150-450) k/uL MPV 8.6 Neutrophils % 65 % Lymphocytes % 22 % Monocytes % 6 % Eosinophils % 2 % Basophils % 1 % Neutrophils # 3.7 (1.3-7.7) k/uL Lymphocytes # 1.3 (1.0-4.8) k/uL Monocytes # 0.4 (0-1.0) k/uL Eosinophils # 0.1 (0-0.7) k/uL Basophils # 0.0 (0-0.2) k/uL Sodium 139 (137-145) mmol/L Potassium 4.4 (3.5-5.1) mmol/L Chloride 105 (98-107) mmol/L Carbon Dioxide 25 (22-30) mmol/L Anion Gap 9 mmol/L BUN 17 (7-17) mg/dL Creatinine 0.88 (0.52-1.04) mg/dL Est GFR (CKD-EPI)AfAm 74 (>60 ml/min/1.73 sqM) Est GFR (CKD-EPI)NonAf 64 (>60 ml/min/1.73 sqM) Glucose 97 (74-99) mg/dL Calcium 8.9 (8.4-10.2) mg/dL Total Bilirubin 0.8 (0.2-1.3) mg/dL AST 27 (14-36) U/L ALT 14 (4-34) U/L Alkaline Phosphatase 109 (38-126) U/L Troponin I <0.012 (0.000-0.034) ng/mL Total Protein 7.0 (6.3-8.2) g/dL Albumin 4.4 (3.5-5.0) g/dL Disposition <Elmer Raymond - Last Filed: 09/22/23 13:19> Time of Disposition: 17:02 Decision Date: 09/22/23 Decision Time: 17:02 <Delio Coy - Last Filed: 09/22/23 17:02> Clinical Impression: Expressive aphasia, TIA (transient ischemic attack), Headache, Generalized weakness Disposition: ADMITTED IP TO THIS [facility] Condition: Good Referrals: Ramone Cobos [Primary Care Provider] - 1-2 days
[2023-09-22 13:52] LABS: Basophils % (A) 1 %; Eosinophils # (A) 0.1 k/uL (0-0.7); Eosinophils % (A) 2 %; HCT 41.2 % (34.0-46.0); HGB 13.5 gm/dL (11.4-16.0); Lymphocytes # (A) 1.3 k/uL (1.0-4.8); Lymphocytes % (A) 22 %; MCHC 32.6 g/dL (31.0-37.0); MCV 91.9 fL (80.0-100.0); Mean Platelet Volume 8.6; Monocytes # (A) 0.4 k/uL (0-1.0); Monocytes % (A) 6 %; Neutrophils # (A) 3.7 k/uL (1.3-7.7); Neutrophils % (A) 65 %; Platelet Count 184 k/uL (150-450); RBC 4.49 m/uL (3.80-5.40); RDW 13.6 % (11.5-15.5); WBC 5.7 k/uL (3.8-10.6)
[2023-09-22 14:01] LABS: ALT 14 U/L (4-34); AST 27 U/L (14-36); African American GFR (CKD) 74 (>60 ml/min/1.73 sqM); Albumin 4.4 g/dL (3.5-5.0); Alkaline Phosphatase 109 U/L (38-126); Anion Gap 9 mmol/L; Blood Urea Nitrogen 17 mg/dL (7-17); Calcium 8.9 mg/dL (8.4-10.2); Carbon Dioxide 25 mmol/L (22-30); Chloride 105 mmol/L (98-107); Glucose 97 mg/dL (74-99); Non-African American GFR(CKD) 64 (>60 ml/min/1.73 sqM); Sodium 139 mmol/L (137-145); Total Bilirubin 0.8 mg/dL (0.2-1.3)
[2023-09-22 14:25] LABS: Potassium 4.4 mmol/L (3.5-5.1)
--- NOTE | 2023-09-22 14:46 | CT ---
EXAMINATION TYPE: CT brain wo con DATE OF EXAM: 09/22/2023 COMPARISON: None available. HISTORY: Dizziness. CT DLP: 1095.4 mGycm Automated exposure control for dose reduction was used. FINDINGS: There is no acute intracranial hemorrhage, mass, mass effect, midline shift, extra-axial fluid collec tion or hydrocephalus. The manuel-white distinction appears intact without evidence of an acute major vessel infarct. The visualized paranasal sinuses and mastoid air cells are clear. IMPRESSION: NO ACUTE INTRACRANIAL PROCESS.
[2023-09-22] MEDS ORDERED: ONDANSETRON 4 MG/2 ML VIAL IVP PRN (16:47)
[2023-09-22] MEDS ORDERED: NALOXONE 0.4 MG/ML 1 ML VIAL IV PRN (16:47)
--- NOTE | 2023-09-22 20:35 | CT ---
EXAMINATION TYPE: CT angio head neck DATE OF EXAM: 09/22/2023 COMPARISON: Brain same day HISTORY: 78-year-old female Dizziness, left side weakness. TECHNIQUE: Contiguous axial scanning of the head and neck performed with IV Contrast, patient injecte d with 65ml mL of Isovue 370. Coronal and sagittal MIP reconstructions performed. CT DLP: 436.8 mGycm Automated exposure control for dose reduction was used. FINDINGS: Neck: Large caliber main right pulmonary artery suggesting underlying pulmonary arterial hypertension with a caliber of 2.9 cm. In this conventional arch vessel branching anatomy. The vertebral arteries are codominant and patent throughout their course. The right common and right internal carotid arteries are widely patent. NASCET criteria is utilized. The left common and left internal carotid arteries are widely patent. Head: The bilateral vertebral and basilar arteries as well as the remainder of the posterior circulation ap pear patent. The bilateral internal carotid arteries and remainder of the anterior circulation is patent. No aneurysmal change is seen. Dural venous sinuses are patent. IMPRESSION: 1. NECK: WIDELY PATENT VERTEBRAL AND CAROTID ARTERIES OF THE NECK. INCIDENTALLY, THERE MAY BE UNDERLY ING PULMONARY ARTERIAL HYPERTENSION IN THE CHEST. 2. HEAD: NO LARGE VESSEL INTRACRANIAL ARTERIAL OCCLUSION, SIGNIFICANT STENOSIS, OR ANEURYSMAL CHANGE IS SEEN.
[2023-09-22] MEDS: lamoTRIgine 25 MG TAB PO ONE (20:47)
[2023-09-22] MEDS: BACLOFEN 10 MG TAB PO PRN (20:48)
[2023-09-22] MEDS: GABAPENTIN 300 MG CAP PO STA (20:48)
[2023-09-22] MEDS: ATORVASTATIN 10 MG TAB PO SCH (20:48)
[2023-09-22] MEDS: amLODIPine 5 MG TAB PO STA (20:48)
[2023-09-22] MEDS: ACETAMINOPHEN TAB 500 MG TAB PO STA (20:48)
[2023-09-22] MEDS: ASPIRIN 81 MG PO STA (20:49)
[2023-09-22] MEDS: GABAPENTIN 300 MG CAP PO SCH (20:51)
[2023-09-23] MEDS: ACETAMINOPHEN TAB 325 MG TAB PO PRN (08:31)
[2023-09-23] MEDS: ENOXAPARIN 40 MG/0.4 ML SYRINGE SQ SCH (08:32)
[2023-09-23] MEDS: lamoTRIgine 25 MG TAB PO SCH (08:33)
[2023-09-23] MEDS: LEVOTHYROXINE 88 MCG TAB PO SCH (08:33)
[2023-09-23] MEDS: PANTOPRAZOLE 40 MG TABLET PO SCH (08:33)
[2023-09-23] MEDS: CHOLECALCIFEROL 25 MCG (1000 IU) TABLET PO SCH (08:33)
--- NOTE | 2023-09-23 12:05 | P.CNNES ---
History of Present Illness Consult date: 09/23/23 Requesting physician: Delio Coy Reason for Consult: tia History of Present Illness: This is a 78-year-old woman presents imaging department because of expressive aphasia. Patient is accompanied with her niece was at bedside. Seems about the 2 days ago she had an episode of difficulty getting her words out even though she knew what she wanted to say as well as feeling dizzy and felt her head was full. Seated that her episode resolved unsure how long it lasts for about possibly a few hours. She denies any nausea any vomiting. She denies any focal weakness. She regarding her headaches she just stated that her head was full starting from the base of the skull involving the whole head but again denies any nausea and vomiting any photophobia any photophobia. She stated that she contacted the her neurologist and it was recommended her to come to the hospital and obtain MRI. Yesterday the she was at her staple side laster's office will also recommended that she be evaluated in the hospital. She stated that her staple side laster recommended for her to be on aspirin but she has not picked up the medication yet. She denies any history of stroke or TIA. She has history of trigeminal neuralgia and today she feels she is having pain over the right cheek region. Of note the patient has history of trigeminal neuralgia since 2007 and she follows up with Dr. Engel (neurologist) at [facility] team. She stated that the she had history of gamma knife for her trigeminal neuralgia.. Patient is on carbamazepine extended release 200 mg twice a day, on gabapentin 600 mg 1 tablet 4 times a day, Lamictal 75 mg 1 tablet twice a day. And it seems that she is on baclofen 10 mg 1 tablet 3 times a day when necessary. Some of the work-up during this hospital visit consisted of: CBC with differential is unremarkable Chemistry panel is unremarkable CT of the head is reported as no acute intracranial process. Personally reviewed the CT of the head and I agree with the report. CT angiography of the head is reported as no large vessel intracranial arterial occlusion, significant stenosis or aneurysm change is seen. CTA of the neck is reported as widely patent vertebral and carotid artery of the neck. Incidentally the there may be underlying pulmonary arterial hypertension in the chest. Review of Systems Review of system: The positive and negative as per HPI. Past Medical History Past Medical History: Cancer, Hyperlipidemia, Hypertension, Neurologic Disorder, Osteoarthritis (OA), Supraventricular Tachycardia (SVT), Thyroid Disorder Additional Past Medical History / Comment(s): LBBB; TRIGEMINAL NEURALGIA- hospitalized in October for acute episode @[facility], hx. THYROID cancer History of Any Multi-Drug Resistant Organisms: None Reported Past Surgical History: Cardiac Ablation, Heart Catheterization, Hysterectomy, Joint Replacement, Orthopedic Surgery Additional Past Surgical History / Comment(s): RT knee arthroscopy; Gamma KNIFE TX TRIGEMINAL NEURALGIA; NASAL PROC; I&D FACIAL MOLE, thyroidectomy, colonoscopy, left knee replaced, rhizotomy of trigeminal nerve @[facility] October 2017 Past Anesthesia/Blood Transfusion Reactions: Motion Sickness Additional Past Anesthesia/Blood Transfusion Reaction / Comment(s): VERY CLAUSTROPHOBIC WITH ANYTHING CLOSE TO FACE INCL O2 TUBING Past Psychological History: No Psychological Hx Reported Smoking Status: Never smoker Past Alcohol Use History: None Reported Past Drug Use History: None Reported - Past Family History Father Family Medical History: Cancer Additional Family Medical History / Comment(s): Father at age 79 from leukemia Son(s) Additional Family Medical History / Comment(s): Patient has 2 sons and one has osteoarthritis status post bilateral hip replacements. Daughter(s) Additional Family Medical History / Comment(s): Patient has one daughter with history of Arnold-Chiari. Mother Family Medical History: Cancer Additional Family Medical History / Comment(s): Mother at age 71 from lung cancer Father Brother(s) Family Medical History: Cancer Additional Family Medical History / Comment(s): Patient has one brother with history of prostate cancer, stroke, diabetes, hypertension. Sister(s) Family Medical History: Cancer Additional Family Medical History / Comment(s): BREAST CANCER Medications and Allergies Home Medications Medication Instructions Recorded Confirmed Type Cholecalciferol (Vitamin D3) 50 mcg PO DAILY 06/04/14 09/22/23 History [Vitamin D3] Levothyroxine Sodium [Synthroid] 88 mcg PO DAILY 05/16/15 09/22/23 History amLODIPine [Norvasc] 5 mg PO HS 03/08/17 09/22/23 History Atorvastatin [Lipitor] 10 mg PO HS 09/22/23 09/22/23 History Baclofen 10 mg PO TID PRN 09/22/23 09/22/23 History Gabapentin 600 mg PO QID 09/22/23 09/22/23 History carBAMazepine [carBAMazepine ER] 200 mg PO BID 09/22/23 09/22/23 History lamoTRIgine [LaMICtal] 75 mg PO BID 09/22/23 09/22/23 History Allergies Allergy/AdvReac Type Severity Reaction Status Date / Time hydrocodone bitartrate Allergy Nausea & Verified 09/22/23 13:10 [From Vicodin] Vomiting codeine AdvReac Nausea & Verified 09/22/23 13:10 Vomiting BANDAID Allergy Rash/Hives Uncoded 09/22/23 13:10 Physical Examination - Vital Signs Vital Signs: Vital Signs Temp Pulse Pulse Resp BP BP Pulse Ox 09/23/23 08:44 60 16 150/82 97 09/23/23 04:00 59 L 16 164/77 95 09/22/23 21:50 98.2 F 64 18 120/74 96 09/22/23 13:05 98 F 65 18 125/76 95 GENERAL: The patient is lying in bed and is in mild acute distress. NEUROLOGICAL: Higher mental function: The patient is awake, alert, oriented to self, place and time. Patient is following commands. No aphasia and no neglect. Cranial nerves: The pupils are round, equal and reactive to light and accommodation. Visual flores are full to confrontation throughout. Extraocular movement is intact no nystagmus is noted. Facial sensation is decrease to touch over the right V2 to touch throughout. The facial strength is normal throughout. Hearing is normal bilaterally to hand rub. Tongue is midline and moved [id number] without any difficulty. No dysarthria is noted. Shoulder shrug is normal bilaterally. Motor: The strength is 5 over 5 throughout. Normal tone and bulk. Cerebellum: Normal finger to nose bilaterally. Sensation: Sensation is normal to touch throughout. Reflexes (right/left)2+ throughout except ankles are 1+. Plantars are mute bilaterally. Results - Laboratory Findings CBC and BMP: 09/22/23 13:33 09/22/23 13:33 Assessment and Plan Assessment: This is a 78-year-old woman resents because of expressive aphasia and she had that episode about 2 days ago which resolved. Transient expressive aphasia old due to transient ischemic attack History of Trigeminal neuralgia status post righizotomy/gamma knife and today worsening of her symptoms History of supraventricular tachycardia/left bundle branch block status post ablation Plan: Patient had CT of the head and CT angiography of head and neck which is unremarkable MRI the brain is ordered by the primary team but patient states that she needs to be lightly sedated. We notified her that we can give her Ativan or Versed to help her calm she refused and she stated that she needs a complete sedation pressure with MRI. Unable to obtain MRI then the this can be obtained as an outpatient through her neurologist or primary care physician. Was given aspirin 324 mg once in the ED and I started her on aspirin 81 mg. She is on Lipitor 10 mg daily at bedtime. I ordered lipid panel, 2-D echo Every 4 hours neuro checks Cardiac monitoring Consulted speech therapy mop PT and OT We'll defer the rest of the medical measures with the primary team For DVT prophylaxis the patient is on Lovenox Upon discharge recommend the patient to follow-up with Dr. Engel (her neurologist) as outpatient within 2-3 weeks. Plan discussed with the patient and her niece who was at bedside as well as the primary team N.P. Thank you for the consultation Time with Patient: Greater than 30
[2023-09-23] MEDS: ASPIRIN 81 MG PO SCH (15:06)
--- NOTE | 2023-09-23 15:52 | P.HPIM ---
History of Present Illness H&P Date: 09/23/23 This is a pleasant 78-year-old female who presented to the emergency department with reported she was having episodes of difficulties getting her words out while on the phone with a friend as well as while she was at her cardiology office and was told to come to the ER for further evaluation recommending a CT with an echo and a Holter monitor. Patient follows with a neurologist out of [place] at the [facility] and has had a MRI within the past year. Patient follows with Dr. Cobos in the outpatient setting with a past medical history of trigeminal neuralgia, SVT, hypertension, hyperlipidemia, osteoarthritis, thyroid cancer. Denies any drug use, never smoker and denies alcohol except for rarely like once per year. Patient continued to have symptoms that did not subside and patient was concerned for possible TIA. Patient is having right-sided facial pain as well as headache and also reports she was instructed to obtain an MRI for further evaluation. Patient underwent brain CT which was negative for any acute intracranial process, CT angio showing widely patent vertebral and carotid arteries of the neck and no large vessel intracranial arterial occlusion significant stenosis or aneurysmal change seen. Imaging also included in ER was an EKG showing sinus bradycardia with a heart rate of 59 bpm. Labs reviewed and within normal limits including negative t roponin. Patient was admitted under observation with concerns of possible TIA versus trigeminal neuralgia flareup. Neurology on consult recommending MRI which has been ordered and pending REVIEW OF SYSTEMS: CONSTITUTIONAL: No fever, no malaise, no fatigue. HEENT: No recent visual problems or hearing problems. Denied any sore throat. CARDIOVASCULAR: No chest pain, orthopnea, PND, no palpitations, no syncope. PULMONARY: No shortness of breath, no cough, no hemoptysis. GASTROINTESTINAL: No diarrhea, no nausea, no vomiting, no abdominal pain. NEUROLOGICAL: Reports headaches, reports right-sided facial weakness and pain, no numbness. HEMATOLOGICAL: Denies any bleeding or petechiae. GENITOURINARY: Denies any burning micturition, frequency, or urgency. MUSCULOSKELETAL/RHEUMATOLOGICAL: Denies any joint pain, swelling, or any muscle pain. ENDOCRINE: Denies any polyuria or polydipsia. The rest of the 14-point review of systems is negative. PHYSICAL EXAMINATION: GENERAL: The patient is alert and oriented x3, not in any acute distress. Well developed, well nourished. Obese HEENT: Pupils are round and equally reacting to light. EOMI. No scleral icterus. No conjunctival pallor. Normocephalic, atraumatic. No pharyngeal erythema. No thyromegaly. CARDIOVASCULAR: S1 and S2 present. No murmurs, rubs, or gallops. PULMONARY: Chest is clear to auscultation, no wheezing or crackles. ABDOMEN: Soft, nontender, nondistended, normoactive bowel sounds. No palpable organomegaly. MUSCULOSKELETAL: No joint swelling or deformity. EXTREMITIES: No cyanosis, clubbing, or pedal edema. NEUROLOGICAL: Gross neurological examination did not reveal any focal deficits. SKIN: No rashes. Assessment: Expressive aphasia with concerns of possible TIA versus flareup of trigeminal neuralgia symptoms Hypertension history Hyperlipidemia history Osteoarthritis Supraventricular tachycardia history Thyroid cancer History of trigeminal neuralgia with gamma knife treatment History of extreme claustrophobia requiring sedation for imaging Obesity with a BMI of 33.7 GI prophylaxis DVT prophylaxis Full code Plan: Patient being evaluated by neurology undergoing further workup including MRI of the brain which is pending. Patient reports she has had previous MRIs with her primary neurologist at [facility] and had sedation as patient is extremely claustrophobic. Will order Valium 5 mg x 2 for MRI procedure and okay to start with Valium 5 mg and if requiring more given additional Valium 5 mg for 10 mg total Home medications reviewed and resumed PT/OT therapy evaluated along with speech Given patient's continued symptoms, patient will require inpatient hospitalization more than 2 nights. Will await MRI and discuss further with neurology regarding discharge planning Patient will need outpatient follow-up with her neurologist this week The impression and plan of care has been dictated by Thelma Rayo, Nurse Practitioner as directed. Dr. Aditi MD I have performed a history and examination and MDM of this patient, discussed the same with the dictator, and agree with the dictator's assessment and plan as written ,documented as a scribe. Based on total visit time, I have performed more than 50% of the visit. Past Medical History Past Medical History: Cancer, Hyperlipidemia, Hypertension, Neurologic Disorder, Osteoarthritis (OA), Supraventricular Tachycardia (SVT), Thyroid Disorder Additional Past Medical History / Comment(s): LBBB; TRIGEMINAL NEURALGIA-h ospitalized in October for acute episode @[facility], hx. THYROID cancer History of Any Multi-Drug Resistant Organisms: None Reported Past Surgical History: Cardiac Ablation, Heart Catheterization, Hysterectomy, Joint Replacement, Orthopedic Surgery Additional Past Surgical History / Comment(s): RT knee arthroscopy; Gamma KNIFE TX TRIGEMINAL NEURALGIA; NASAL PROC; I&D FACIAL MOLE, thyroidectomy, colonoscopy, left knee replaced, rhizotomy of trigeminal nerve @[facility] October 2017 Past Anesthesia/Blood Transfusion Reactions: Motion Sickness Additional Past Anesthesia/Blood Transfusion Reaction / Comment(s): VERY CLAUSTROPHOBIC WITH ANYTHING CLOSE TO FACE INCL O2 TUBING Past Psychological History: No Psychological Hx Reported Smoking Status: Never smoker Past Alcohol Use History: None Reported Past Drug Use History: None Reported - Past Family History Father Family Medical History: Cancer Additional Family Medical History / Comment(s): Father at age 79 from leukemia Son(s) Additional Family Medical History / Comment(s): Patient has 2 sons and one has osteoarthritis status post bilateral hip replacements. Daughter(s) Additional Family Medical History / Comment(s): Patient has one daughter with history of Arnold-Chiari. Mother Family Medical History: Cancer Additional Family Medical History / Comment(s): Mother at age 71 from lung cancer Father Brother(s) Family Medical History: Cancer Additional Family Medical History / Comment(s): Patient has one brother with history of prostate cancer, stroke, diabetes, hypertension. Sister(s) Family Medical History: Cancer Additional Family Medical History / Comment(s): BREAST CANCER Medications and Allergies Home Medications Medication Instructions Recorded Confirmed Type Cholecalciferol (Vitamin D3) 50 mcg PO DAILY 06/04/14 09/22/23 History [Vitamin D3] Levothyroxine Sodium [Synthroid] 88 mcg PO DAILY 05/16/15 09/22/23 History amLODIPine [Norvasc] 5 mg PO HS 03/08/17 09/22/23 History Atorvastatin [Lipitor] 10 mg PO HS 09/22/23 09/22/23 History Baclofen 10 mg PO TID PRN 09/22/23 09/22/23 History Gabapentin 600 mg PO QID 09/22/23 09/22/23 History carBAMazepine [carBAMazepine ER] 200 mg PO BID 09/22/23 09/22/23 History lamoTRIgine [LaMICtal] 75 mg PO BID 09/22/23 09/22/23 History Allergies Allergy/AdvReac Type Severity Reaction Status Date / Time hydrocodone bitartrate Allergy Nausea & Verified 09/22/23 13:10 [From Vicodin] Vomiting codeine AdvReac Nausea & Verified 09/22/23 13:10 Vomiting BANDAID Allergy Rash/Hives Uncoded 09/22/23 13:10 Physical Exam Vitals: Vital Signs Temp Pulse Pulse Resp BP BP Pulse Ox 09/23/23 08:44 60 16 150/82 97 09/23/23 04:00 59 L 16 164/77 95 09/22/23 21:50 98.2 F 64 18 120/74 96 09/22/23 13:05 98 F 65 18 125/76 95 Results CBC & Chem 7: 09/22/23 13:33 09/22/23 13:33 Assessment and Plan Time with Patient: Greater than 30
[2023-09-23 16:07] LABS: Chol/HDL Ratio 3.35 Ratio; LDL Cholesterol,Calculated 103.4 mg/dL (0.0-131.0)
[2023-09-23] MEDS: ATORVASTATIN 20 MG TAB PO SCH (21:38)
[2023-09-23] MEDS: amLODIPine 5 MG TAB PO SCH (21:38)
--- NOTE | 2023-09-24 09:41 | CA ---
Transthoracic Echo Report Name: Lisa Garcia Age: 78 Gender: F : 1945 Exam Date: 09/24/2023 07:39 Exam Location: [facility] Ht (in): 62 Wt (lb): 184 Ordering Physician: Flash Richey MD Attending/Referring Phys: Gradall Operator Shweta Reyes RDCS Procedure CPT: Indications: stroke Cardiac Hx: Technical Quality: Good Contrast 1: Total Dose (mL): Contrast 2: Total Dose (mL): MEASUREMENTS (Male / Female) Normal Values 2D ECHO LV Diastolic Diameter PLAX 6.0 cm 4.2 - 5.9 / 3.9 - 5.3 cm LV Systolic Diameter PLAX 4.3 cm IVS Diastolic Thickness 0.9 cm 0.6 - 1.0 / 0.6 - 0.9 cm LVPW Diastolic Thickness 0.9 cm 0.6 - 1.0 / 0.6 - 0.9 cm LV Relative Wall Thickness 0.3 RV Internal Dim ED PLAX 3.1 cm LA Systolic Diameter LX 3.7 cm 3.0 - 4.0 / 2.7 - 3.8 cm LV Diastolic Volume MOD 4C 78.1 cm??? LV Systolic Volume MOD 4C 45.9 cm??? LV Ejection Fraction MOD 4C 41.2 % LV Cardiac Index MOD 4C 990.5 cm???/min???m??? LV Diastolic Length 4C 7.6 cm LV Systolic Length 4C 6.5 cm LV Diastolic Volume MOD 2C 83.4 cm??? LV Systolic Volume MOD 2C 33.4 cm??? LV Ejection Fraction MOD 2C 59.9 % LV Cardiac Index MOD 2C 1539.4 cm???/min???m??? LV Diastolic Length 2C 7.8 cm LV Systolic Length 2C 6.3 cm LA Volume 39.3 cm??? 18 - 58 / 22 - 52 cm??? LA Volume Index 20.2 cm???/m??? 16 - 28 cm???/m??? M-MODE Aortic Root Diameter MM 3.5 cm MV E Point Septal Separation 0.9 cm AV Cusp Separation MM 2.0 cm DOPPLER AV Peak Velocity 140.1 cm/s AV Peak Gradient 7.9 mmHg AI Peak Velocity 376.2 cm/s AI Peak Gradient 56.6 mmHg AI Pressure Half Time 1855.5 ms MV Area PHT 1.7 cm??? Mitral E Point Velocity 54.5 cm/s Mitral A Point Velocity 97.1 cm/s Mitral E to A Ratio 0.6 MV Deceleration Time 439.4 ms TR Peak Velocity 256.2 cm/s TR Peak Gradient 26.3 mmHg Right Ventricular Systolic Press 30.1 mmHg FINDINGS Left Ventricle Left ventricular ejection fraction is estimated at 55-60 %. Moderately increased left ventricular diastolic diameter. No obvious regional wall motion abnormalities. Right Ventricle Normal right ventricular size. Right ventricular systolic pressure within normal limits. Right Atrium Normal right atrial size. Negative agitated saline bubble study for right to left shunt. Left Atrium Normal left atrial size. Mitral Valve Structurally normal mitral valve. Mild mitral regurgitation. Aortic Valve Trileaflet aortic valve. Thickened aortic valve without stenosis. Mild aortic regurgitation. Tricuspid Valve Structurally normal tricuspid valve. Mild tricuspid regurgitation. Pulmonic Valve Structurally normal pulmonic valve. Trace to mild pulmonic regurgitation. Pericardium No pericardial effusion. Aorta Normal size aortic root and proximal ascending aorta. CONCLUSIONS Normal LV systolic function Mild mitral aortic and tricuspid regurgitation Previewed by: Dr. Clifton Razo MD (Electronically Signed) Final Date: 24 September 2023 09:40
--- NOTE | 2023-09-24 10:39 | MR ---
EXAMINATION TYPE: MR brain wo con DATE OF EXAM: 09/24/2023 COMPARISON: CT brain 2 days earlier HISTORY: Right side weakness, difficulty expressing words TECHNIQUE: Multiplanar, multisequence imaging of the brain and brainstem is performed without IV cont rast. FINDINGS: Diffusion weighted images demonstrate no evidence of a recent infarct or other diffusion abnormality. Mild ventricular and sulcal prominence is redemonstrated. There is scattered tiny foci of T2 hyperint ensity seen throughout the white matter bilaterally. Approximately 30-40 scattered lesions are seen. Lesions are nonspecific in appearance and distribution Midline structures demonstrate normal morphology. The craniocervical junction appears within normal limits. Normal vascular flow voids are present. Bilateral aphakia is present. Nasal septum is deviate d to right of midline. The paranasal sinuses are grossly clear. IMPRESSION: 1. No MRI evidence for recent infarct. 2. Background mild diffuse age-related cerebral atrophy and mild to moderate chronic small vessel isc hemic changes are present.
[2023-09-24 14:15] VITALS: BP 138/75; PULSE 62; RESP 19; TEMP 98.7
--- NOTE | 2023-09-24 15:24 | P.PN ---
Subjective Progress Note Date: 09/24/23 I am following-up with patient and she feels back to baseline. Feels her pain over the V2 has resolved. Denies any new neurological issues. Objective - Vital Signs Vital signs: Vital Signs Temp 98.7 F 09/24/23 14:00 Pulse 62 09/24/23 14:00 Resp 19 09/24/23 14:00 BP 138/75 09/24/23 14:00 Pulse Ox 95 09/24/23 14:00 FiO2 Intake & Output 09/23/23 09/24/23 09/24/23 18:59 06:59 18:59 Intake Total 100 Balance 100 Intake: Oral 100 Other: # Voids 2 3 - Exam GENERAL: The patient is lying in bed and is not in acute distress. NEUROLOGICAL: Higher mental function: The patient is awake, alert, oriented to self, place and time. Patient is following commands. No aphasia and no neglect. Cranial nerves: The pupils are round, equal and reactive to light and accommodation. Visual flores are full to confrontation throughout. Extraocular movement is intact no nystagmus is noted. Normal to touch throughout. The facial strength is normal throughout. Hearing is normal bilaterally to hand rub. Tongue is midline and moved [id number] without any difficulty. No dysarthria is noted. Shoulder shrug is normal bilaterally. Motor: The strength is 5 over 5 throughout. Normal tone and bulk. Cerebellum: Normal finger to nose bilaterally. Sensation: Sensation is normal to touch throughout. Reflexes (right/left)2+ throughout except ankles are 1+. Plantars are mute bilaterally. Some of the work-up during this hospital visit consisted of: CBC with differential is unremarkable Chemistry panel is unremarkable Lipid panel: TG 93, cholestrol 174, LDL [address] of the head is reported as no acute intracranial process. Personally reviewed the CT of the head and I agree with the report. CT angiography of the head is reported as no large vessel intracranial arterial occlusion, significant stenosis or aneurysm change is seen. CTA of the neck is reported as widely patent vertebral and carotid artery of the neck. Incidentally the there may be underlying pulmonary arterial hypertension in the chest. MRI Brain: No MRI evidence for recent infarct. Background mild diffuse age- related cerebral atrophy and mild to moderate chronic small vessel ischemic changes are present. 2D echo: Normal LV systolic funciton. Normal left atrial size. - Labs CBC & Chem 7: 09/22/23 13:33 09/22/23 13:33 Assessment and Plan Assessment: This is a 78-year-old woman resents because of expressive aphasia and she had that episode about 2 days ago which resolved. Transient expressive aphasia with dizziness and head pressure probable due to transient ischemic attack. MRI Brain is negative for acute/subacute process History of Trigeminal neuralgia status post righizotomy/gamma knife and today worsening of her symptoms---today is improved Possible pulmonary hypertension on imaging History of supraventricular tachycardia/left bundle branch block status post ablation Plan: She was not on antiplatelets prior to this. She is currently on ASA 81mg daily and started her on Plavix 75mg daily. Recommend dual antiplatelets for 21 days and after that stop Plavix but continue ASA indefitenly. She is on Lipitor 20mg qhs. Patient stated she was notified by her market reporter he will place a loop record. Every 4 hours neuro checks Cardiac monitoring Consulted speech therapy mop PT and OT Possible pulmonary hypertension on imaging. Will defer management to primary team. We'll defer the rest of the medical measures with the primary team For DVT prophylaxis the patient is on Lovenox Upon discharge recommend the patient to follow-up with Dr. Engel (her neurologist) as outpatient within 2-3 weeks. Plan discussed with the patient, her who is at bedside and her nurse. There is no further neurological work-up. Will sign off. Please reconsult if needed. Time with Patient: Less than 30
[2023-09-24] MEDS: CLOPIDOGREL 75 MG TAB PO SCH (17:34)
--- NOTE | 2023-09-25 16:57 | P.DS ---
Providers Date of admission: 09/22/23 16:47 Attending physician: Marcus Watkins Consults: 09/22/23 16:47 Consult Physician Routine Consulting Provider: Flash Richey Consult Reason/Comments: tia Do you want consulting provider notified?: Yes Primary care physician: Ramone Cobos [facility] Course: Final diagnosis Expressive aphasia with concerns of possible TIA versus flareup of trigeminal neuralgia symptoms Hypertension history Hyperlipidemia history Osteoarthritis Supraventricular tachycardia history Thyroid cancer History of trigeminal neuralgia with gamma knife treatment History of extreme claustrophobia requiring sedation for imaging Obesity with a BMI of 33.7 GI prophylaxis DVT prophylaxis Full code Discharge disposition Patient is medically stable for discharge home. She has been cleared by neurology recommending a course of dual antiplatelet therapy with aspirin 81 mg and Plavix 75 mg daily for the next 21 days after that patient is recommended to discontinue the Plavix and continue on aspirin indefinitely. Patient underwent MRI with no acute findings. She was sedated with the Valium for her MRI and after patient was monitored family felt like her speech has improved and is no longer slurred. Patient will be discharged home and recommending to follow-up with her known neurologist. Patient was also recently wearing a Holter monitor and has been advised to follow-up with her known water resources project manager Dr. Pineda for reports of this. Lipitor has been increased to 20 mg daily for primary stroke prevention in conjunction with the aspirin and Plavix. Hospital course This is a pleasant 78-year-old female who presented to the emergency department with reported she was having episodes of difficulties getting her words out while on the phone with a friend as well as while she was at her cardiology office and was told to come to the ER for further evaluation recommending a CT with an echo and a Holter monitor. Patient follows with a neurologist out of [place] at the [facility] and has had a MRI within the past year. Patient follows with Dr. Cobos in the outpatient setting with a past medical history of trigeminal neuralgia, SVT, hypertension, hyperlipidemia, osteoarthritis, thyroid cancer. Denies any drug use, never smoker and denies alcohol except for rarely like once per year. Patient continued to have symptoms that did not subside and patient was concerned for possible TIA. Patient is having right-sided facial pain as well as headache and also reports she was instructed to obtain an MRI for further evaluation. Patient underwent brain CT which was negative for any acute intracranial process, CT angio showing widely patent vertebral and carotid arteries of the neck and no large vessel intracranial arterial occlusion significant stenosis or aneurysmal change seen. Imaging also included in ER was an EKG showing sinus bradycardia with a heart rate of 59 bpm. Labs reviewed and within normal limits including negative troponin. Patient was admitted under observation with concerns of possible TIA versus trigeminal neuralgia flareup. Patient underwent stroke workup she had an MRI which reveals no acute findings there is mention of background mild diffuse age-related cerebral atrophy and mild to moderate chronic small vessel ischemic changes. Echocardiogram reveals an EF of 55 to 60% with mild mitral aortic and tricuspid regurgitation. Patient is currently denying any shortness of breath no chest pain no dizziness or lightheadedness. She is not having any headache. She states that her trigeminal neuralgia does not feel like she is flared up at this moment. She has been up ambulating. Hemodynamically she is stable. She will be discharged home. Please see medication reconciliation for list of current medication. Thank you for allowing us to participate in the care of this patient. The impression and plan of care has been dictated by Cydney Mcclellan, Nurse Practitioner as directed. Dr. Aditi MD I have performed a history and physical examination and medical decision making of this patient, discussed the same with the dictator, and agree with the dictators assessment and plan as written, documented as a scribe. Based on total visit time, I have performed more than 50% of this visit. Patient Condition at Discharge: Stable Plan - Discharge Summary Discharge Rx Participant: Yes New Discharge Prescriptions: New Aspirin 81 mg PO DAILY #30 tab Atorvastatin [Lipitor] 20 mg PO HS #30 tab Clopidogrel [Plavix] 75 mg PO DAILY #21 tablet Continue Cholecalciferol (Vitamin D3) [Vitamin D3] 50 mcg PO DAILY Levothyroxine Sodium [Synthroid] 88 mcg PO DAILY amLODIPine [Norvasc] 5 mg PO HS Baclofen 10 mg PO TID PRN PRN Reason: Muscle Spasm Gabapentin 600 mg PO QID lamoTRIgine [LaMICtal] 75 mg PO BID carBAMazepine [carBAMazepine ER] 200 mg PO BID Discontinued Atorvastatin [Lipitor] 10 mg PO HS Discharge Medication List Cholecalciferol (Vitamin D3) [Vitamin D3] 50 mcg PO DAILY 06/04/14 [History] Levothyroxine Sodium [Synthroid] 88 mcg PO DAILY 05/16/15 [History] amLODIPine [Norvasc] 5 mg PO HS 03/08/17 [History] Baclofen 10 mg PO TID PRN 09/22/23 [History] Gabapentin 600 mg PO QID 09/22/23 [History] carBAMazepine [carBAMazepine ER] 200 mg PO BID 09/22/23 [History] lamoTRIgine [LaMICtal] 75 mg PO BID 09/22/23 [History] Aspirin 81 mg PO DAILY #30 tab 09/24/23 [Rx] Atorvastatin [Lipitor] 20 mg PO HS #30 tab 09/24/23 [Rx] Clopidogrel [Plavix] 75 mg PO DAILY #21 tablet 09/24/23 [Rx] Follow up Appointment(s)/Referral(s): Ramone Cobos [Primary Care Provider] - 1-2 days Mayra Engel MD [REFERRING] - 1 Week Anastacio Evans MD [STAFF PHYSICIAN] - 1 Week Patient Instructions/Handouts: Aphasia (DC) Activity/Diet/Wound Care/Special Instructions: Follow up with your neurologist Discharge Disposition: HOME SELF-CARE
== END 2023-09-24 17:39 | disposition home or self-care (01) ==
LOC: EC 12:45 → 6NMEDSUR 16:47 → INTOOBSV 09-23 15:52 → OBSVTOIN 09-23 15:52 → UNDODISOB 09-24 17:39 → UNDODISIN 09-24 17:39
PROVIDERS: ADMIT Hospitalist; ATTEND Hospitalist
DX: R47.01 Aphasia (principal); I47.10 Supraventricular tachycardia, unspecified; R42 Dizziness and giddiness; R51.9 Headache, unspecified; R53.1 Weakness; G50.0 Trigeminal neuralgia; I10 Essential (primary) hypertension; E78.5 Hyperlipidemia, unspecified; M19.90 Unspecified osteoarthritis, unspecified site; F40.240 Claustrophobia; E66.9 Obesity, unspecified; Z68.33 Body mass index [BMI] 33.0-33.9, adult; Z85.850 Personal history of malignant neoplasm of thyroid; Z79.890 Hormone replacement therapy; Z79.899 Other long term (current) drug therapy; Z88.5 Allergy status to narcotic agent
CPT/HCPCS: 96376; 96372 ×2; 96374; 99285; 36415; 93005; 93306; 97161; 80053; 80061; 84484; 85025; 70496; 70450; 70498; 70551; G0378 ×3; J3360; J1650 ×2; Q9967

== ENCOUNTER 2024-02-10 13:12 | Inpatient (IN) | payer MEDICARE ==
--- NOTE | 2024-02-10 13:44 | ED ---
Recheck HPI - General Chief Complaint: Recheck/Abnormal Lab/Rx Stated Complaint: Shingles+ Time Seen by Provider: 02/10/24 13:43 Source: patient, RN notes reviewed, old records reviewed Mode of arrival: ambulatory Limitations: no limitations - History of Present Illness Initial Comments: This 78-year-old female to ER for evaluation of severe zoster reaction, zoster ophthalmicus herpes, right eye which she was seen by ophthalmology unable to receive treatment and symptoms have significantly progressed. Patient is in severe pain with nausea. No fevers no vision changes no other complaints, right eyes swollen shut MD Complaint: abnormal lab (Significant right eye swelling edema) -: days(s) Returns Today for: persistent/worsening pain related to initial visit Symptoms Since Prior Visit: worsening pain Associated Symptoms: none Treatments Prior to Arrival: other (0) - Related Data Home Medications Medication Instructions Recorded Confirmed Levothyroxine Sodium [Synthroid] 88 mcg PO DAILY 05/16/15 02/10/24 amLODIPine [Norvasc] 5 mg PO DAILY 03/08/17 02/10/24 Gabapentin 600 mg PO BID 09/22/23 02/10/24 carBAMazepine [carBAMazepine ER] 200 mg PO BID 09/22/23 02/10/24 lamoTRIgine [LaMICtal] 75 mg PO BID 09/22/23 02/10/24 ALPRAZolam [Xanax] 0.25 mg PO BID PRN 02/10/24 02/10/24 Atorvastatin [Lipitor] 80 mg PO DAILY 02/10/24 02/10/24 Previous Rx's Medication Instructions Recorded Aspirin 81 mg PO DAILY #30 tab 09/24/23 Acetaminophen Tab [Tylenol] 650 mg PO Q6HR PRN tab 02/15/24 Artificial Tears-Hypromellose 1 drops BOTH EYES QID PRN ml 02/15/24 [Artificial Tear Drops] Erythromycin Ophth Oint [Romycin 1 applic RIGHT EYE Q4HR #1 each 02/15/24 Ophth Oint] Phenylephrine 2.5% Ophth Soln 1 drops BOTH EYES DIRECTED 7 02/15/24 [Ronald-Synephrine Ophth] Days #5 ml valACYclovir HCL [Valtrex] 1,000 mg PO TID 7 Days #21 tab 02/15/24 Allergies Allergy/AdvReac Type Severity Reaction Status Date / Time codeine Allergy Nausea & Verified 02/10/24 15:44 Vomiting, RASH, SWELLING hydrocodone bitartrate Allergy Nausea & Verified 02/10/24 15:44 [From Vicodin] Vomiting, RASH, SWELLING morphine Allergy RASH, Verified 02/10/24 15:44 SWELLING BANDAID Allergy Rash/Hives Uncoded 02/10/24 13:32 Review of Systems ROS Statement: Those systems with pertinent positive or pertinent negative responses have been documented in the HPI. ROS Other: All systems not noted in ROS Statement are negative. Past Medical History Past Medical History: Cancer, Hyperlipidemia, Hypertension, Neurologic Disorder, Osteoarthritis (OA), Supraventricular Tachycardia (SVT), Thyroid Disorder Additional Past Medical History / Comment(s): LBBB; TRIGEMINAL NEURALGIA- hospitalized in October for acute episode @[facility], hx. THYROID cancer History of Any Multi-Drug Resistant Organisms: None Reported Past Surgical History: Cardiac Ablation, Heart Catheterization, Hysterectomy, Joint Replacement, Orthopedic Surgery Additional Past Surgical History / Comment(s): RT knee arthroscopy; Gamma KNIFE TX TRIGEMINAL NEURALGIA; NASAL PROC; I&D FACIAL MOLE, thyroidectomy, colonoscopy, left knee replaced, rhizotomy of trigeminal nerve @[facility] October 2017 Past Anesthesia/Blood Transfusion Reactions: Motion Sickness Additional Past Anesthesia/Blood Transfusion Reaction / Comment(s): VERY CLAUST ROPHOBIC WITH ANYTHING CLOSE TO FACE INCL O2 TUBING Past Psychological History: No Psychological Hx Reported Smoking Status: Never smoker Past Alcohol Use History: None Reported Past Drug Use History: None Reported - Past Family History Father Family Medical History: Cancer Additional Family Medical History / Comment(s): Father at age 79 from leukemia Son(s) Additional Family Medical History / Comment(s): Patient has 2 sons and one has osteoarthritis status post bilateral hip replacements. Daughter(s) Additional Family Medical History / Comment(s): Patient has one daughter with history of Arnold-Chiari. Mother Family Medical History: Cancer Additional Family Medical History / Comment(s): Mother at age 71 from lung cancer Father Brother(s) Family Medical History: Cancer Additional Family Medical History / Comment(s): Patient has one brother with history of prostate cancer, stroke, diabetes, hypertension. Sister(s) Family Medical History: Cancer Additional Family Medical History / Comment(s): BREAST CANCER General Exam - General Exam Comments Initial Comments: Zoster Opthalmicus RIGHT eye Limitations: no limitations General appearance: alert, in no apparent distress Head exam: Present: atraumatic, normocephalic, normal inspection Eye exam: Present: normal appearance, PERRL, EOMI. Absent: scleral icterus, conjunctival injection, periorbital swelling ENT exam: Present: normal exam, mucous membranes moist Neck exam: Present: normal inspection. Absent: tenderness, meningismus, lymphadenopathy Respiratory exam: Present: normal lung sounds bilaterally. Absent: respiratory distress, wheezes, rales, rhonchi, stridor Cardiovascular Exam: Present: regular rate, normal rhythm, normal heart sounds. Absent: systolic murmur, diastolic murmur, rubs, gallop, clicks GI/Abdominal exam: Present: soft, normal bowel sounds. Absent: distended, tenderness, guarding, rebound, rigid Extremities exam: Present: normal inspection, full ROM, normal capillary refill. Absent: tenderness, pedal edema, joint swelling, calf tenderness Back exam: Present: normal inspection Neurological exam: Present: alert, oriented X3, CN II-XII intact Psychiatric exam: Present: normal affect, normal mood Skin exam: Present: warm, dry, intact, normal color. Absent: rash Course Vital Signs 02/10/24 02/10/24 02/10/24 13:26 15:56 17:48 Temperature 97.8 F Pulse Rate 62 64 76 Respiratory 18 16 16 Rate Blood Pressure 146/76 156/67 161/74 O2 Sat by Pulse 98 95 95 Oximetry - Reevaluation(s) Reevaluation #1: 02/10/24 17:01 Records reviewed Reevaluation #2: 02/10/24 17:01 Symptoms improved Reevaluation #3: 02/10/24 17:01 Patient informed of results and questions answered Reevaluation #4: Was pt. sent in by a medical professional or institution (, PA, TRACTOR CRANE OPERATOR, urgent care, hospital, or care home...) When possible be specific @ -no Did you speak to anyone other than the patient for history (EMS, parent, family, police, friend...)? What history was obtained from this source @ -no Did you review nursing and triage notes (agree or disagree)? Why? @ -agree Are old charts reviewed (outside hosp., previous admission, EMS record, old EKG, old radiological studies, urgent care reports/EKG's, care home records)? Report findings @ -yes Differential Diagnosis (chest pain, altered mental status, abdominal pain women, abdominal pain men, vaginal bleeding, weakness, fever, dyspnea, syncope, headache, dizziness, GI bleed, back pain, seizure, CVA, palpatations, mental health, musculoskeletal)? @ -prior EKG interpreted by me (3pts min.). @ -no X-rays interpreted by me (1pt min.). @ -no CT interpreted by me (1pt min.). @ -no U/S interpreted by me (1pt. min.). @ -no What testing was considered but not performed or refused? (CT, X-rays, U/S, labs)? Why? @ -none What meds were considered but not given or refused? Why? @ -none Did you discuss the management of the patient with other professionals (professionals i.e. , PA, TRACTOR CRANE OPERATOR, lab, RT, psych nurse, social media intern, summer nanny, teacher, us customs and border officer, shoe caser)? Give summary @ -no Was smoking cessation discussed for >3mins.? @ -no Was critical care preformed (if so, how long)? @ -no Were there social determinants of health that impacted care today? How? (Homelessness, low income, unemployed, alcoholism, drug addiction, transportation, low edu. Level, literacy, decrease access to med. care, senior living, rehab)? @ -none Was there de-escalation of care discussed even if they declined (Discuss DNR or withdrawal of care, Hospice)? DNR status @ -no What co-morbidities impacted this encounter? (DM, HTN, Smoking, COPD, CAD, Cancer, CVA, ARF, Chemo, Hep., AIDS, mental health diagnosis, sleep apnea, m orbid obesity)? @ -none Was patient admitted / discharged? Hospital course, mention meds given and route, prescriptions, significant lab abnormalities, going to OR and other pertinent info. @ - 78 female with with significant right herpes zoster ophthalmicus. Patient will admit for inpatient treatment Discharge Undiagnosed new problem with uncertain prognosis? @ -no Drug Therapy requiring intensive monitoring for toxicity (Heparin, Nitro, Insulin, Cardizem)? @ -no Were any procedures done? @ -no Diagnosis/symptom? @ -Herpes ZOster Opthalmicus Acute, or Chronic, or Acute on Chronic? @ -Acute Uncomplicated (without systemic symptoms) or Complicated (systemic symptoms)? @ -Complicated Side effects of treatment? @ -no Exacerbation, Progression, or Severe Exacerbation? @ -exacerbation Poses a threat to life or bodily function? How? (Chest pain, USA, MA, pneumonia, PE, COPD, DKA, ARF, appy, cholecystitis, CVA, Diverticulitis, Homicidal, Suicidal, threat to staff... and all critical care pts) @ -yes - Consultations Consultation #1: With [facility] who agrees to admit this patient Medical Decision Making - Medical Decision Making 78 female with with significant right herpes zoster ophthalmicus. Patient will admit for inpatient treatment - Lab Data Result diagrams: 02/13/24 06:58 02/13/24 06:58 Lab Results 02/10/24 02/10/24 02/10/24 Range/Units 15:17 15:17 15:17 WBC 4.8 (3.8-10.6) k/uL RBC 4.36 (3.80-5.40) m/uL Hgb 13.1 (11.4-16.0) gm/dL Hct 39.7 (34.0-46.0) % MCV 91.0 (80.0-100.0) fL MCH 29.9 (25.0-35.0) pg MCHC 32.9 (31.0-37.0) g/dL RDW 13.6 (11.5-15.5) % Plt Count 142 L (150-450) k/uL MPV 8.6 Neutrophils % Not Reportable Neutrophils % (Manual) 76 % Lymphocytes % Not Reportable Lymphocytes % (Manual) 23 % Monocytes % Not Reportable Monocytes % (Manual) 1 % Eosinophils % Not Reportable Basophils % Not Reportable Neutrophils # Not Reportable Neutrophils # (Manual) 3.65 (1.3-7.7) k/uL Lymphocytes # Not Reportable Lymphocytes # (Manual) 1.10 (1.0-4.8) k/uL Monocytes # Not Reportable Monocytes # (Manual) 0.05 (0-1.0) k/uL Eosinophils # Not Reportable Basophils # Not Reportable Nucleated RBCs 0 (0-0) /100 WBC Manual Slide Review Performed PT 9.9 L (10.0-12.5) sec INR 0.9 (<1.2) APTT 22.8 (22.0-30.0) sec Sodium (137-145) mmol/L Potassium (3.5-5.1) mmol/L Chloride (98-107) mmol/L Carbon Dioxide (22-30) mmol/L Anion Gap mmol/L BUN (7-17) mg/dL Creatinine (0.52-1.04) mg/dL Est GFR (CKD-EPI)AfAm (>60 ml/min/1.73 sqM) Est GFR (CKD-EPI)NonAf (>60 ml/min/1.73 sqM) Glucose (74-99) mg/dL Plasma Lactic Acid Preston (0.7-2.0) mmol/L Calcium (8.4-10.2) mg/dL Phosphorus (2.5-4.5) mg/dL Magnesium (1.6-2.3) mg/dL Total Bilirubin (0.2-1.3) mg/dL AST (14-36) U/L ALT (4-34) U/L Alkaline Phosphatase (38-126) U/L Troponin I (0.000-0.034) ng/mL NT-Pro-B Natriuret Pep pg/mL Total Protein (6.3-8.2) g/dL Albumin (3.5-5.0) g/dL Urine Color Yellow Urine Appearance Cloudy H (Clear) Urine pH 7.0 (5.0-8.0) Ur Specific [place] 1.023 (1.001-1.035) Urine Protein 1+ H (Negative) Urine Glucose (UA) Trace H (Negative) Urine Ketones 2+ H (Negative) Urine Blood Moderate H (Negative) Urine Nitrite Negative (Negative) Urine Bilirubin Negative (Negative) Urine Urobilinogen <2.0 (<2.0) mg/dL Ur Leukocyte Esterase Moderate H (Negative) Urine RBC 35 H (0-5) /hpf Urine WBC 11 H (0-5) /hpf Ur Squamous Epith Cells 9 H (0-4) /hpf Urine Mucus Few H (None) /hpf 02/10/24 02/10/24 02/10/24 Range/Units 15:17 15:17 15:17 WBC (3.8-10.6) k/uL RBC (3.80-5.40) m/uL Hgb (11.4-16.0) gm/dL Hct (34.0-46.0) % MCV (80.0-100.0) fL MCH (25.0-35.0) pg MCHC (31.0-37.0) g/dL RDW (11.5-15.5) % Plt Count (150-450) k/uL MPV Neutrophils % Neutrophils % (Manual) % Lymphocytes % Lymphocytes % (Manual) % Monocytes % Monocytes % (Manual) % Eosinophils % Basophils % Neutrophils # Neutrophils # (Manual) (1.3-7.7) k/uL Lymphocytes # Lymphocytes # (Manual) (1.0-4.8) k/uL Monocytes # Monocytes # (Manual) (0-1.0) k/uL Eosinophils # Basophils # Nucleated RBCs (0-0) /100 WBC Manual Slide Review PT (10.0-12.5) sec INR (<1.2) APTT (22.0-30.0) sec Sodium 136 L (137-145) mmol/L Potassium 4.9 (3.5-5.1) mmol/L Chloride 101 (98-107) mmol/L Carbon Dioxide 25 (22-30) mmol/L Anion Gap 10 mmol/L BUN 13 (7-17) mg/dL Creatinine 0.70 (0.52-1.04) mg/dL Est GFR (CKD-EPI)AfAm >90 (>60 ml/min/1.73 sqM) Est GFR (CKD-EPI)NonAf 84 (>60 ml/min/1.73 sqM) Glucose 112 H (74-99) mg/dL Plasma Lactic Acid Preston 1.1 (0.7-2.0) mmol/L Calcium 9.1 (8.4-10.2) mg/dL Phosphorus 3.3 (2.5-4.5) mg/dL Magnesium 2.2 (1.6-2.3) mg/dL Total Bilirubin 0.7 (0.2-1.3) mg/dL AST 28 (14-36) U/L ALT 19 (4-34) U/L Alkaline Phosphatase 102 (38-126) U/L Troponin I <0.012 (0.000-0.034) ng/mL NT-Pro-B Natriuret Pep 486 pg/mL Total Protein 6.8 (6.3-8.2) g/dL Albumin 4.4 (3.5-5.0) g/dL Urine Color Urine Appearance (Clear) Urine pH (5.0-8.0) Ur Specific [place] (1.001-1.035) Urine Protein (Negative) Urine Glucose (UA) (Negative) Urine Ketones (Negative) Urine Blood (Negative) Urine Nitrite (Negative) Urine Bilirubin (Negative) Urine Urobilinogen (<2.0) mg/dL Ur Leukocyte Esterase (Negative) Urine RBC (0-5) /hpf Urine WBC (0-5) /hpf Ur Squamous Epith Cells (0-4) /hpf Urine Mucus (None) /hpf - EKG Data -: EKG Interpreted by Me (EKG is sinus 66 NH 172 QRS 145 QTc 468) Disposition Clinical Impression: Herpes zoster ophthalmicus of right eye, Generalized weakness Disposition: ADMITTED IP TO THIS [facility] Condition: Fair Is patient prescribed a controlled substance at d/c from ED?: No Time of Disposition: 17:00
[2024-02-10] MEDS: SODIUM CHLORIDE 0.9% 1,000 ML IV STA (15:48)
[2024-02-10] MEDS: KETOROLAC 15 MG/ML 1 ML VIAL IVP STA (15:48)
[2024-02-10] MEDS: MORPHINE SULFATE 4 MG/ML SYRINGE IV STA (15:49)
[2024-02-10] MEDS: DEXAMETHASONE SOD PHOSPHATE 10 MG/ML 1 ML VIAL IVP STA (15:49)
[2024-02-10] MEDS: ACYCLOVIR SODIUM 800 MG in SODIUM CHLORIDE 0.9% 250 ML IV ONE (15:50)
[2024-02-10 16:06] LABS: Appearance,Urine Cloudy (Clear); Bilirubin,Urine Negative (Negative); Blood,Urine Moderate (Negative); Color,Urine Yellow; Glucose,Urine (UA) Trace (Negative); Ketones,Urine 2+ (Negative); Leukocyte Esterase,Urine Moderate (Negative); Mucus,Urine Few /hpf; Nitrite,Urine Negative (Negative); Protein,Urine 1+ (Negative); RBC,Urine 35 /hpf (0-5); Specific Gravity,Urine 1.023 (1.001-1.035); Squamous Epithelial Cell,Urine 9 /hpf (0-4); Urobilinogen,Urine <2.0 mg/dL (<2.0); WBC,Urine 11 /hpf (0-5)
[2024-02-10 16:16] LABS: HCT 39.7 % (34.0-46.0); HGB 13.1 gm/dL (11.4-16.0); MCH 29.9 pg (25.0-35.0); MCHC 32.9 g/dL (31.0-37.0); Mean Platelet Volume 8.6; Platelet Count 142 k/uL (150-450); RBC 4.36 m/uL (3.80-5.40); RDW 13.6 % (11.5-15.5); WBC 4.8 k/uL (3.8-10.6)
[2024-02-10 16:26] LABS: ALT 19 U/L (4-34); AST 28 U/L (14-36); African American GFR (CKD) >90 (>60 ml/min/1.73 sqM); Albumin 4.4 g/dL (3.5-5.0); Alkaline Phosphatase 102 U/L (38-126); Anion Gap 10 mmol/L; Blood Urea Nitrogen 13 mg/dL (7-17); Calcium 9.1 mg/dL (8.4-10.2); Carbon Dioxide 25 mmol/L (22-30); Chloride 101 mmol/L (98-107); Glucose 112 mg/dL (74-99); Magnesium 2.2 mg/dL (1.6-2.3); Non-African American GFR(CKD) 84 (>60 ml/min/1.73 sqM); Phosphorus 3.3 mg/dL (2.5-4.5); Potassium 4.9 mmol/L (3.5-5.1); Sodium 136 mmol/L (137-145); Total Bilirubin 0.7 mg/dL (0.2-1.3); Total Protein 6.8 g/dL (6.3-8.2)
[2024-02-10 16:35] LABS: NT-Pro-B-Type Natriuretic Pept 486 pg/mL
[2024-02-10 16:48] LABS: Monocytes # (M) 0.05 k/uL (0-1.0); Neutrophils # (M) 3.65 k/uL (1.3-7.7); Neutrophils % (M) 76 %; Nucleated Red Blood Cells 0 /100 WBC (0-0); Total Cells Counted 100
[2024-02-10] MEDS ORDERED: MORPHINE SULFATE 4 MG/ML SYRINGE IV PRN (17:02)
[2024-02-10] MEDS ORDERED: NALOXONE 0.4 MG/ML 1 ML VIAL IV PRN (17:02)
[2024-02-10] MEDS: ONDANSETRON 4 MG/2 ML VIAL IVP PRN (17:32)
[2024-02-10 17:33] LABS: INR 0.9 (<1.2); Partial Thromboplastin Time 22.8 sec (22.0-30.0); Prothrombin Time 9.9 sec (10.0-12.5)
[2024-02-10] MEDS: SODIUM CHLORIDE 0.9% 1,000 ML IV SCH (19:41)
[2024-02-10] MEDS ORDERED: ALPRAZolam 0.25 MG TAB PO PRN (20:36)
[2024-02-10] MEDS: GABAPENTIN 300 MG CAP PO SCH (21:16)
[2024-02-10] MEDS: lamoTRIgine 25 MG TAB PO SCH (21:16)
[2024-02-10] MEDS: ACYCLOVIR SODIUM 800 MG in SODIUM CHLORIDE 0.9% 250 ML IVPB SCH (23:59)
[2024-02-11] MEDS: ACETAMINOPHEN TAB 325 MG TAB PO PRN (01:33)
[2024-02-11] MEDS ORDERED: ARTIFICIAL TEARS-HYPROMELLOSE DROPS 15 ML BTL BOTH EYES PRN (08:37)
[2024-02-11 09:23] LABS: Basophils # (A) 0.02 X 10*3/uL (0.00-0.10); Basophils % (A) 0.4 %; Eosinophils # (A) 0 X 10*3/uL (0.04-0.35); Eosinophils % (A) 0 %; HCT 37.3 % (37.2-46.3); HGB 12.6 g/dL (12.0-15.0); Lymphocytes # (A) 1.02 X 10*3/uL (0.90-5.00); MCH 30.4 pg (27.0-32.0); MCHC 33.8 g/dL (32.0-37.0); MCV 89.9 FL (80.0-97.0); Mean Platelet Volume 11.4 FL (9.5-12.2); Monocytes # (A) 0.57 X 10*3/uL (0.20-1.00); Monocytes % (A) 12.3 %; NRBC Per 100 WBC 0 X 10*3/uL (0.00-0.01); Neutrophils % (A) 64.9 %; Platelet Count 149 X 10*3/uL (140-440); RBC 4.15 X 10*6/uL (4.10-5.20); RDW 13.4 % (11.5-14.5); WBC 4.63 X 10*3/uL (4.50-10.00)
[2024-02-11] MEDS: PROPARACAINE 0.5% OPHTH DROPS 15 ML BTL BOTH EYES STA (10:15)
[2024-02-11 11:06] LABS: ALT 17 U/L (8-44); AST 22 U/L (13-35); Albumin 3.9 g/dL (3.8-4.9); Albumin/Globulin Ratio 1.95 Ratio (1.60-3.17); Alkaline Phosphatase 91 U/L (41-126); BUN/Creat Ratio 12.12 Ratio (12.00-20.00); Blood Urea Nitrogen 9.7 mg/dL (9.0-27.0); Calcium 8.4 mg/dL (8.7-10.3); Carbon Dioxide 26.3 mmol/L (21.6-31.8); Chloride 105 mmol/L (96-109); Glucose 109 mg/dL (70-110); Magnesium 2.2 mg/dL (1.5-2.4); Phosphorus 3.1 mg/dL (2.4-5.1); Potassium 5.4 mmol/L (3.5-5.5); Sodium 138 mmol/L (135-145); Total Bilirubin 0.3 mg/dL (0.3-1.2); Total Protein 5.9 g/dL (6.2-8.2)
--- NOTE | 2024-02-11 11:25 | P.CON ---
Consult Note - . Consult date: 02/11/24 Assessment/Plan:: This is a 78 y/o female who began to experience problems with irritation on the right side of her face 08 FEB 2024. She was seen by Dr Cobos who prescribed a narcotic medication for the discomfort and a "chickenpox" medication. He also wanted her to be seen by an hoeing row boss, Dr. Cardenas who was unavailable, and was referred to [facility] or [place] and was seen by Dr. Martinez. who apparently ordered a different antiviral medication which she is not able to identify. Moreover, the [facility], [place], apparently was unable to have been unable to provide medication, as they did not see the order. She then was having significant discomfort and came the [facility] ER for treatment. She was subsequently admitted and begun on IV acyclovir. This morning she is resting comfortably, but finds the eyelids are stuck due to the discharge and has been using a cold washcloth to attempt to relieve symptoms. She admits to having had cataract surgery with DR. Cardenas, in the past and has no other known eye conditions which might affect her sight. Ext: moderate erythema and swelling involving CN V1 on the right and mild facial swelling on the left (slept to her left last night) EOM: full Pupils: no APD Va: Reading 20/40 OD, 20/20 OS IOP: Tonopen, not functioning, - tactile soft OU Eyelids: partially stuck with crusty discharge on lashes and limited movement on right, left unremarkable Conj: quiet OU Cornea: clear and without staining AC: deep and quiet OU Iris: no pathology Lens: pseudophakic A: Herpes Zoster, CN V1 eyelid without ocular involvement. P: Recommend conversion to oral when appropriate, topical lubrication of the eye, and will add topical erythromycin ointment for eyelid and IN the eye at bedtime. Avoid the "cold" washcloth to the eye, will aggravate the drying and breakdown. Recommend follow up with Dr. Cardenas or myself on discharge.
[2024-02-11] MEDS ORDERED: ERYTHROMYCIN 5 MG/GM OPHTH OINT 3.5 GM TUBE RIGHT EYE SCH (12:00)
--- NOTE | 2024-02-11 14:02 | P.HPIM ---
History of Present Illness H&P Date: 02/11/24 Chief Complaint: Right face rash History of present illness; 78-year-old female with past medical history significant for hypertension, hyperlipidemia, osteoarthritis, history of SVT, history of thyroid cancer, history of trigeminal neuralgia who presented to ED for worsening right facial rash. Patient stated that she noticed right face swelling redness and pain on Tuesday before Thanksgiving which progressively got worse. Patient was seen by PCP and was prescribed narcotic medication for pain and acyclovir. Patient was referred to see [employer] pa[employer] operator Dr. Khanna was unavailable and patient was [facility] was evaluated by Dr. Martinez and patient was told that she had herpes zoster without eye involvement, apparently patient was prescribed a different antiviral medication patient was not able to identify. Patient stated that she started to notice worsening right face swelling and pain despite taking her medication and decided come to the ER. In the ED patient was afebrile, heart rate 63, respiratory rate 16, blood pressure was elevated 181/74 initially. Patient was saturating 98% on room air. CBC was unremarkable with normal WBCs, normal hemoglobin, mildly low platelet 142. CMP was also unremarkable. Troponin was negative. UA showed cloudy appearance, 35 RBCs, 11 WBCs, 9 squamous epithelial cells, moderate leukocyte Es trace. Patient admitted to internal medicine service REVIEW OF SYSTEMS: CONSTITUTIONAL: No fever, no malaise, no fatigue. HEENT: Right facial swelling and pain. CARDIOVASCULAR: No chest pain, orthopnea, PND, no palpitations, no syncope. PULMONARY: No shortness of breath, no cough, no hemoptysis. GASTROINTESTINAL: No diarrhea, no nausea, no vomiting, no abdominal pain. NEUROLOGICAL: No headaches, no weakness, no numbness. HEMATOLOGICAL: Denies any bleeding or petechiae. GENITOURINARY: Denies any burning micturition, frequency, or urgency. MUSCULOSKELETAL/RHEUMATOLOGICAL: Denies any joint pain, swelling, or any muscle pain. ENDOCRINE: Denies any polyuria or polydipsia. The rest of the 14-point review of systems is negative. PHYSICAL EXAMINATION: GENERAL: The patient is alert and oriented x3, not in any acute distress. Well developed, well nourished. HEENT:Moderate swelling, erythema, tenderness involving V1 on the right, mild periorbital swelling on the left. CARDIOVASCULAR: S1 and S2 present. No murmurs, rubs, or gallops. PULMONARY: Chest is clear to auscultation, no wheezing or crackles. ABDOMEN: Soft, nontender, nondistended, normoactive bowel sounds. No palpable organomegaly. MUSCULOSKELETAL: No joint swelling or deformity. EXTREMITIES: No cyanosis, clubbing, or pedal edema. NEUROLOGICAL: Gross neurological examination did not reveal any focal deficits. SKIN: No rashes. Assessment and plan Herpes zoster: Cranial nerve V1 eyelid without ocular involvement Patient presented with right facial rash, swelling, redness and pain. Consulted ophthalmologyappreciate recs. Continue IV acyclovir, will switch to p.o. antiviral at discharge, topical lubrication of the eye, topical erythromycin at bedtime. Consulted infectious disease. Symptomatic management for pain. Hypertension: Resume home med Norvasc History of TIA: Continue home meds aspirin, statin, blood pressure control. Hypothyroidism: Synthroid Trigeminal neuralgia: Continue home meds SVT: Stable, monitor. DVT prophylaxis. Subcutaneous Lovenox Monitor vital signs Monitor CBC Monitor CMP Continue telemetry monitoring Labs and medication were reviewed.. Continue same treatment. Continue with symptomatic treatment. Resume home medication. Monitor labs and vitals. Further recommendations as per clinical course of the patient Dictation was produced using [employer] dictation software. please excuse any grammatical, word or spelling errors. Past Medical History Past Medical History: Cancer, Hyperlipidemia, Hypertension, Neurologic Disorder, Osteoarthritis (OA), Supraventricular Tachycardia (SVT), Thyroid Disorder Additional Past Medical History / Comment(s): LBBB; TRIGEMINAL NEURALGIA- hospitalized in October for acute episode @[facility], hx. THYROID cancer History of Any Multi-Drug Resistant Organisms: None Reported Past Surgical History: Cardiac Ablation, Heart Catheterization, Hysterectomy, Joint Replacement, Orthopedic Surgery Additional Past Surgical History / Comment(s): RT knee arthroscopy; Gamma KNIFE TX TRIGEMINAL NEURALGIA; NASAL PROC; I&D FACIAL MOLE, thyroidectomy, colonoscopy, left knee replaced, rhizotomy of trigeminal nerve @[facility] October 2017 Past Anesthesia/Blood Transfusion Reactions: No Reported Reaction, Motion Sickness Additional Past Anesthesia/Blood Transfusion Reaction / Comment(s): VERY CLAUSTROPHOBIC WITH ANYTHING CLOSE TO FACE INCL O2 TUBING Past Psychological History: No Psychological Hx Reported Additional Psychological History / Comment(s): VERY CLAUSTROPhOBIC Smoking Status: Never smoker Past Alcohol Use History: None Reported Additional Past Alcohol Use History / Comment(s): Patient is a lifelong nonsmoker. She denies any medical marijuana, marijuana, street drug or alcohol use. Past Drug Use History: None Reported - Past Family History Father Family Medical History: Cancer Additional Family Medical History / Comment(s): Father at age 79 from leukemia Son(s) Additional Family Medical History / Comment(s): Patient has 2 sons and one has osteoarthritis status post bilateral hip replacements. Daughter(s) Additional Family Medical History / Comment(s): Patient has one daughter with history of Arnold-Chiari. Mother Family Medical History: Cancer Additional Family Medical History / Comment(s): Mother at age 71 from lung cancer Father Brother(s) Family Medical History: Cancer, Hyperlipidemia, Hypertension Additional Family Medical History / Comment(s): Patient has one brother with history of prostate cancer, stroke, diabetes, hypertension. svt hypothyroidism cardiac ablation Sister(s) Family Medical History: Cancer Additional Family Medical History / Comment(s): BREAST CANCER Medications and Allergies Home Medications Medication Instructions Recorded Confirmed Type Levothyroxine Sodium [Synthroid] 88 mcg PO DAILY 05/16/15 02/10/24 History amLODIPine [Norvasc] 5 mg PO DAILY 03/08/17 02/10/24 History Gabapentin 600 mg PO BID 09/22/23 02/10/24 History carBAMazepine [carBAMazepine ER] 200 mg PO BID 09/22/23 02/10/24 History lamoTRIgine [LaMICtal] 75 mg PO BID 09/22/23 02/10/24 History Aspirin 81 mg PO DAILY #30 tab 09/24/23 02/10/24 Rx ALPRAZolam [Xanax] 0.25 mg PO BID PRN 02/10/24 02/10/24 History Atorvastatin [Lipitor] 80 mg PO DAILY 02/10/24 02/10/24 History valACYclovir HCL [Valtrex] 1,000 mg PO TID 02/10/24 02/10/24 History Allergies Allergy/AdvReac Type Severity Reaction Status Date / Time codeine Allergy Nausea & Verified 02/10/24 15:44 Vomiting, RASH, SWELLING hydrocodone bitartrate Allergy Nausea & Verified 02/10/24 15:44 [From Vicodin] Vomiting, RASH, SWELLING morphine Allergy RASH, Verified 02/10/24 15:44 SWELLING BANDAID Allergy Rash/Hives Uncoded 02/10/24 13:32 Physical Exam Vitals: Vital Signs Temp Pulse Pulse Resp BP BP Pulse Ox 02/11/24 07:27 97.5 F L 63 16 181/74 98 02/11/24 02:00 98.4 F 79 15 171/75 96 02/10/24 20:00 15 02/10/24 19:08 98.6 F 76 15 135/70 95 02/10/24 17:48 76 16 161/74 95 02/10/24 15:56 64 16 156/67 95 Intake and Output 02/10/24 02/11/24 02/11/24 22:59 06:59 14:59 Other: # Voids 1 1 Weight 79.379 kg Results CBC & Chem 7: 02/11/24 06:04 02/11/24 06:04 Labs: Abnormal Lab Results - Last 24 Hours (Table) 02/10/24 02/10/24 02/10/24 Range/Units 15:17 15:17 15:17 Plt Count 142 L (150-450) k/uL Eosinophils # (0.04-0.35) X 10*3/uL PT 9.9 L (10.0-12.5) sec Sodium (137-145) mmol/L Glucose (74-99) mg/dL Calcium (8.7-10.3) mg/dL Total Protein (6.2-8.2) g/dL Urine Appearance Cloudy H (Clear) Urine Protein 1+ H (Negative) Urine Glucose (UA) Trace H (Negative) Urine Ketones 2+ H (Negative) Urine Blood Moderate H (Negative) Ur Leukocyte Esterase Moderate H (Negative) Urine RBC 35 H (0-5) /hpf Urine WBC 11 H (0-5) /hpf Ur Squamous Epith Cells 9 H (0-4) /hpf Urine Mucus Few H (None) /hpf 02/10/24 02/11/24 02/11/24 Range/Units 15:17 06:04 06:04 Plt Count (150-450) k/uL Eosinophils # 0 L (0.04-0.35) X 10*3/uL PT (10.0-12.5) sec Sodium 136 L (137-145) mmol/L Glucose 112 H (74-99) mg/dL Calcium 8.4 L (8.7-10.3) mg/dL Total Protein 5.9 L (6.2-8.2) g/dL Urine Appearance (Clear) Urine Protein (Negative) Urine Glucose (UA) (Negative) Urine Ketones (Negative) Urine Blood (Negative) Ur Leukocyte Esterase (Negative) Urine RBC (0-5) /hpf Urine WBC (0-5) /hpf Ur Squamous Epith Cells (0-4) /hpf Urine Mucus (None) /hpf Thrombosis Risk Factor Assmnt - Choose All That Apply Each Risk Factor Represents 3 Points: Age 75 years or older Other congenital or acquired thrombophilia - If yes, enter type in comment: No Thrombosis Risk Factor Assessment Total Risk Factor Score: 3 Thrombosis Risk Factor Assessment Level: Moderate Risk
[2024-02-11] MEDS: TROPICAMIDE 1% OPHTH DROPS 2 ML BTL BOTH EYES ONE (17:47)
[2024-02-11] MEDS: PHENYLEPHRINE 2.5% OPHTH DRP 2ML BOTH EYES SCH (17:47)
[2024-02-11] MEDS: ASPIRIN 81 MG PO SCH (17:52)
[2024-02-11] MEDS: amLODIPine 5 MG TAB PO SCH (17:52)
[2024-02-11] MEDS: ATORVASTATIN 80 MG TAB PO SCH (17:52)
[2024-02-11] MEDS: ERYTHROMYCIN 5 MG/GM OPHTH OINT 3.5 GM TUBE RIGHT EYE SCH (17:57)
[2024-02-11] MEDS: ENOXAPARIN 40 MG/0.4 ML SYRINGE SQ SCH (18:02)
--- NOTE | 2024-02-11 23:01 | P.CONS ---
History of Present Illness - Reason for Consult Consult date: 02/11/24 herpes zoster Requesting physician: Holden Orantes - Chief Complaint rash to the right forhead x few days - History of Present Illness Patient is a 78-year-old female with a past medical history significant for hypertension hyperlipidemia osteoarthritis SVT hypothyroidism and thyroid cancer started having a rash to the right forehead area with the patient initially disregarded as possible bug bite patient subsequently the rash to be extending across the right forehead and periorbital area with the patient was evaluated by ophthalmology on Tuesday and apparently was supposed to send 2 different medications which were never sent patient subsequently presenting to [facility] yesterday after the for evaluation of rash involving the right forehead and periorbital area and subsequent closure of the eye patient be complaining of burning pain to the affected area moderate intensity without any radiation patient denies high-grade fever or lesions and no fever have been recorded on presentation to the hospital patient was afebrile and no fever subsequently patient was not tachycardic hypotensive or hypoxic patient did have a white count of 4.8 creatinine 0.70 electrolytes are normal liver enzymes are normal urine is mildly positive infectious he was consulted today for further management concerning for zoster ophthalmicus patient never have a history of shingles in the past Review of Systems Positive point and negatives has been mentioned in the HPI, complete review of systems was performed and all other systems are negative Past Medical History Past Medical History: Cancer, Hyperlipidemia, Hypertension, Neurologic Disorder, Osteoarthritis (OA), Supraventricular Tachycardia (SVT), Thyroid Disorder Additional Past Medical History / Comment(s): LBBB; TRIGEMINAL NEURALGIA- hospitalized in October for acute episode @[facility], hx. THYROID cancer History of Any Multi-Drug Resistant Organisms: None Reported Past Surgical History: Cardiac Ablation, Heart Catheterization, Hysterectomy, Joint Replacement, Orthopedic Surgery Additional Past Surgical History / Comment(s): RT knee arthroscopy; Gamma KNIFE TX TRIGEMINAL NEURALGIA; NASAL PROC; I&D FACIAL MOLE, thyroidectomy, colonoscopy, left knee replaced, rhizotomy of trigeminal nerve @[facility] October 2017 Past Anesthesia/Blood Transfusion Reactions: No Reported Reaction, Motion Sickness Additional Past Anesthesia/Blood Transfusion Reaction / Comm: VERY CLAUSTROPHOBIC WITH ANYTHING CLOSE TO FACE INCL O2 TUBING Past Psychological History: No Psychological Hx Reported Additional Psychological History / Comment(s): VERY CLAUSTROPhOBIC Smoking Status: Never smoker Past Alcohol Use History: None Reported Additional Past Alcohol Use History / Comment(s): Patient is a lifelong nonsmoker. She denies any medical marijuana, marijuana, street drug or alcohol use. Past Drug Use History: None Reported - Past Family History Father Family Medical History: Cancer Additional Family Medical History / Comment(s): Father at age 79 from leukemia Son(s) Additional Family Medical History / Comment(s): Patient has 2 sons and one has osteoarthritis status post bilateral hip replacements. Daughter(s) Additional Family Medical History / Comment(s): Patient has one daughter with history of Arnold-Chiari. Mother Family Medical History: Cancer Additional Family Medical History / Comment(s): Mother at age 71 from lung cancer Father Brother(s) Family Medical History: Cancer, Hyperlipidemia, Hypertension Additional Family Medical History / Comment(s): Patient has one brother with history of prostate cancer, stroke, diabetes, hypertension. svt hypothyroidism cardiac ablation Sister(s) Family Medical History: Cancer Additional Family Medical History / Comment(s): BREAST CANCER Medications and Allergies Home Medications Medication Instructions Recorded Confirmed Type Levothyroxine Sodium [Synthroid] 88 mcg PO DAILY 05/16/15 02/10/24 History amLODIPine [Norvasc] 5 mg PO DAILY 03/08/17 02/10/24 History Gabapentin 600 mg PO BID 09/22/23 02/10/24 History carBAMazepine [carBAMazepine ER] 200 mg PO BID 09/22/23 02/10/24 History lamoTRIgine [LaMICtal] 75 mg PO BID 09/22/23 02/10/24 History Aspirin 81 mg PO DAILY #30 tab 09/24/23 02/10/24 Rx ALPRAZolam [Xanax] 0.25 mg PO BID PRN 02/10/24 02/10/24 History Atorvastatin [Lipitor] 80 mg PO DAILY 02/10/24 02/10/24 History valACYclovir HCL [Valtrex] 1,000 mg PO TID 02/10/24 02/10/24 History Allergies Allergy/AdvReac Type Severity Reaction Status Date / Time codeine Allergy Nausea & Verified 02/10/24 15:44 Vomiting, RASH, SWELLING hydrocodone bitartrate Allergy Nausea & Verified 02/10/24 15:44 [From Vicodin] Vomiting, RASH, SWELLING morphine Allergy RASH, Verified 02/10/24 15:44 SWELLING BANDAID Allergy Rash/Hives Uncoded 02/10/24 13:32 Physical Exam Vitals: Vital Signs Temp Pulse Pulse Resp BP BP Pulse Ox 02/11/24 07:27 97.5 F L 63 16 181/74 98 02/11/24 02:00 98.4 F 79 15 171/75 96 02/10/24 20:00 15 02/10/24 19:08 98.6 F 76 15 135/70 95 02/10/24 17:48 76 16 161/74 95 02/10/24 15:56 64 16 156/67 95 Intake and Output 02/10/24 02/11/24 02/11/24 22:59 06:59 14:59 Other: # Voids 1 1 Weight 79.379 kg GENERAL DESCRIPTION: Elderly female lying in bed, no distress. No tachypnea or accessory muscle of respiration use. HEENT: Did have a vaginal rash to the right forehead and periorbital area not crossing the midline, oral mucous membrane is dry. No pharyngeal erythema or thrush NECK: Trachea central, no thyromegaly. LUNGS: Unlabored breathing. Clear to auscultation anteriorly. No wheeze or crackle. HEART: S1, S2, regular rate and rhythm. No loud murmur ABDOMEN: Soft, no tenderness , guarding or rigidity, no organomegaly EXTREMITIES: No edema of feet. SKIN: Rash as discussed above NEUROLOGICAL: The patient is awake, alert, oriented x3, mood and affect normal. Results CBC & Chem 7: 02/11/24 06:04 02/11/24 06:04 Labs: Abnormal Lab Results - Last 24 Hours (Table) 02/10/24 02/10/24 02/10/24 Range/Units 15:17 15:17 15:17 Plt Count 142 L (150-450) k/uL Eosinophils # (0.04-0.35) X 10*3/uL PT 9.9 L (10.0-12.5) sec Sodium (137-145) mmol/L Glucose (74-99) mg/dL Calcium (8.7-10.3) mg/dL Total Protein (6.2-8.2) g/dL Urine Appearance Cloudy H (Clear) Urine Protein 1+ H (Negative) Urine Glucose (UA) Trace H (Negative) Urine Ketones 2+ H (Negative) Urine Blood Moderate H (Negative) Ur Leukocyte Esterase Moderate H (Negative) Urine RBC 35 H (0-5) /hpf Urine WBC 11 H (0-5) /hpf Ur Squamous Epith Cells 9 H (0-4) /hpf Urine Mucus Few H (None) /hpf 02/10/24 02/11/24 02/11/24 Range/Units 15:17 06:04 06:04 Plt Count (150-450) k/uL Eosinophils # 0 L (0.04-0.35) X 10*3/uL PT (10.0-12.5) sec Sodium 136 L (137-145) mmol/L Glucose 112 H (74-99) mg/dL Calcium 8.4 L (8.7-10.3) mg/dL Total Protein 5.9 L (6.2-8.2) g/dL Urine Appearance (Clear) Urine Protein (Negative) Urine Glucose (UA) (Negative) Urine Ketones (Negative) Urine Blood (Negative) Ur Leukocyte Esterase (Negative) Urine RBC (0-5) /hpf Urine WBC (0-5) /hpf Ur Squamous Epith Cells (0-4) /hpf Urine Mucus (None) /hpf Assessment and Plan (1) Herpes zoster ophthalmicus of right eye Current Visit: Yes Status: Acute Code(s): B02.30 - ZOSTER OCULAR DISEASE, UNSPECIFIED SNOMED Code(s): 08853073 Plan: 1patient presented to hospital with vesicular rash to the right forehead and periorbital area in this patient with evidence of shingles involving the V1 dermatome of the trigeminal nerve with no evidence of any secondary cellulitis 2-patient to continue with acyclovir 10 mg/kg IV every 8 hours 3-patient has been started on Neurontin for postherpetic neuralgia 4-no need for systemic antibiotics We will follow on clinical condition and cultures to further adjust medication if needed Thank you for this consultation we will follow the patient along with you Dictation was produced using [employer] software. please excuse any grammatical, word or spelling errors.
[2024-02-12] MEDS: LEVOTHYROXINE 88 MCG TAB PO SCH (05:03)
[2024-02-12 09:56] LABS: HCT 36.7 % (37.2-46.3); HGB 11.9 g/dL (12.0-15.0); MCH 29.4 pg (27.0-32.0); MCHC 32.4 g/dL (32.0-37.0); MCV 90.6 FL (80.0-97.0); Mean Platelet Volume 10.8 FL (9.5-12.2); NRBC Per 100 WBC 0 X 10*3/uL (0.00-0.01); Platelet Count 159 X 10*3/uL (140-440); RBC 4.05 X 10*6/uL (4.10-5.20); RDW 13.6 % (11.5-14.5); WBC 4.96 X 10*3/uL (4.50-10.00)
[2024-02-12 11:19] LABS: Basophils # (A) 0.04 X 10*3/uL (0.00-0.10); Basophils % (A) 0.8 %; Eosinophils # (A) 0.06 X 10*3/uL (0.04-0.35); Eosinophils % (A) 1.2 %; Lymphocytes % (A) 32.3 %; Monocytes # (A) 0.59 X 10*3/uL (0.20-1.00); Monocytes % (A) 11.9 %; Neutrophils # (A) 2.65 X 10*3/uL (1.80-7.70); Neutrophils % (A) 53.4 %
[2024-02-12 11:26] LABS: BUN/Creat Ratio 8.88 Ratio (12.00-20.00); Blood Urea Nitrogen 7.1 mg/dL (9.0-27.0); Calcium 8.6 mg/dL (8.7-10.3); Carbon Dioxide 28.7 mmol/L (21.6-31.8); Chloride 106 mmol/L (96-109); Glucose 110 mg/dL (70-110); Potassium 4.4 mmol/L (3.5-5.5); Sodium 142 mmol/L (135-145)
--- NOTE | 2024-02-12 13:25 | P.PN ---
Subjective Progress Note Date: 02/12/24 Principal diagnosis: Reason for follow-up is right herpes zoster ophthalmicus Patient is a 78-year-old female with a past medical history significant for hypertension hyperlipidemia osteoarthritis SVT hypothyroidism and thyroid cancer presented to hospital with rash to the forehead periorbital area has been diagnosed with the herpes zoster ophthalmicus. On today's evaluation that is 02/12/2024, patient has been afebrile, patient rash and irritation to the right periorbital area slightly decreased patient able to open right eyelid minimally, patient is breathing comfortably and is currently on room air, patient denies having any significant cough no chest pain shortness of breath, patient denies nausea vomiting or diarrhea and no abdominal pain. Patient white count is 4.96, creatinine 0.8 Objective - Vital Signs Vital signs: Vital Signs Temp 98.3 F 02/12/24 07:00 Pulse 97 02/12/24 08:00 Resp 17 02/12/24 07:00 BP 165/79 02/12/24 07:00 Pulse Ox 97 02/12/24 08:36 FiO2 21 02/12/24 08:36 Intake & Output 02/11/24 02/12/24 02/12/24 18:59 06:59 18:59 Intake Total 358 Balance 358 Intake: Oral 358 Other: # Voids 3 2 - Exam GENERAL DESCRIPTION: An elderly female lying in bed in no distress HEENT: Right periorbital rash has decreased in intensity RESPIRATORY SYSTEM: Unlabored breathing , decreased breath sounds at bases HEART: S1 S2 regular rate and rhythm , ABDOMEN: Soft , no tenderness EXTREMITIES: No edema feet - Labs CBC & Chem 7: 02/12/24 05:40 02/12/24 05:40 Labs: Abnormal Lab Results - Last 24 Hours (Table) 02/12/24 02/12/24 Range/Units 05:40 05:40 RBC 4.05 L (4.10-5.20) X 10*6/uL Hgb 11.9 L (12.0-15.0) g/dL Hct 36.7 L (37.2-46.3) % BUN 7.1 L (9.0-27.0) mg/dL BUN/Creatinine Ratio 8.88 L (12.00-20.00) Ratio Calcium 8.6 L (8.7-10.3) mg/dL Assessment and Plan (1) Herpes zoster ophthalmicus of right eye Current Visit: Yes Status: Acute Code(s): B02.30 - ZOSTER OCULAR DISEASE, UNSPECIFIED SNOMED Code(s): 08543251 Plan: 1patient presented to hospital with vesicular rash to the right forehead and periorbital area in this patient with evidence of shingles involving the V1 dermatome of the trigeminal nerve with no evidence of any secondary bacterial cellulitis 2-patient seem to have some clinical improvement, to continue with acyclovir 10 mg/kg IV every 8 hours while watching her kidney function closely question concern answered Dictation was produced using [employer] dictation software. please excuse any grammatical, word or spelling errors. Time with Patient: Less than 30
--- NOTE | 2024-02-12 15:02 | P.PN ---
Subjective Progress Note Date: 02/12/24 Interval History: Patient was seen and examined today. Right-sided facial swelling and redness slowly improving. Patient feeling better today as compared to yesterday. Denied any fever or chills overnight. Denied any issues with the vision. Infectious disease is consulted and following, discussed with infectious disease, recommended to continue IV acyclovir for 2 more days in the hospital REVIEW OF SYSTEMS: CONSTITUTIONAL: No fever, no malaise,. CARDIOVASCULAR: No chest pain, no palpitations, no syncope. PULMONARY: No shortness of breath, no cough, GASTROINTESTINAL: No diarrhea, no nausea, no vomiting, no abdominal pain. NEUROLOGICAL: No headaches, no weakness, PHYSICAL EXAMINATION: GENERAL: The patient is alert and oriented x3, not in any acute distress. Well developed, well nourished. HEENT:Moderate swelling, erythema, tenderness involving V1 on the right, mild periorbital swelling on the left. CARDIOVASCULAR: S1 and S2 present. No murmurs, rubs, or gallops. PULMONARY: Chest is clear to auscultation, no wheezing or crackles. ABDOMEN: Soft, nontender, nondistended, normoactive bowel sounds. No palpable organomegaly. MUSCULOSKELETAL: No joint swelling or deformity. EXTREMITIES: No cyanosis, clubbing, or pedal edema. NEUROLOGICAL: Gross neurological examination did not reveal any focal deficits. SKIN: No rashes. Assessment and plan Herpes zoster: Cranial nerve V1 eyelid without ocular involvement Patient presented with right facial rash, swelling, redness and pain. Consulted ophthalmologyappreciate recs. Continue IV acyclovir, will switch to p.o. antiviral at discharge, topical lubrication of the eye, topical erythromycin at bedtime. Consulted infectious disease--recommended to continue with IV acyclovir for 2 more days inpatient. Symptomatic management for pain--Tylenol, gabapentin. Hypertension: Resume home med Norvasc History of TIA: Continue home meds aspirin, statin, blood pressure control. Hypothyroidism: Synthroid Trigeminal neuralgia: Continue home meds SVT: Stable, monitor. DVT prophylaxis. Subcutaneous Lovenox Dictation was produced using [employer] software. please excuse any grammatical, word or spelling errors. Objective - Vital Signs Vital signs: Vital Signs Temp 98.3 F 02/12/24 07:00 Pulse 97 02/12/24 14:00 Resp 17 02/12/24 14:00 BP 165/79 02/12/24 07:00 Pulse Ox 97 02/12/24 08:36 FiO2 21 02/12/24 08:36 Intake & Output 02/11/24 02/12/24 02/12/24 18:59 06:59 18:59 Intake Total 358 Balance 358 Intake: Oral 358 Other: # Voids 3 2 3 - Labs CBC & Chem 7: 02/12/24 05:40 02/12/24 05:40 Labs: Abnormal Lab Results - Last 24 Hours (Table) 02/12/24 02/12/24 Range/Units 05:40 05:40 RBC 4.05 L (4.10-5.20) X 10*6/uL Hgb 11.9 L (12.0-15.0) g/dL Hct 36.7 L (37.2-46.3) % BUN 7.1 L (9.0-27.0) mg/dL BUN/Creatinine Ratio 8.88 L (12.00-20.00) Ratio Calcium 8.6 L (8.7-10.3) mg/dL
[2024-02-13 10:46] LABS: HCT 37.4 % (37.2-46.3); HGB 12.5 g/dL (12.0-15.0); MCH 29.6 pg (27.0-32.0); MCHC 33.4 g/dL (32.0-37.0); MCV 88.6 FL (80.0-97.0); Mean Platelet Volume 10.9 FL (9.5-12.2); NRBC Per 100 WBC 0 X 10*3/uL (0.00-0.01); Platelet Count 198 X 10*3/uL (140-440); RBC 4.22 X 10*6/uL (4.10-5.20); RDW 13.5 % (11.5-14.5)
[2024-02-13 10:54] LABS: BUN/Creat Ratio 6.75 Ratio (12.00-20.00); Blood Urea Nitrogen 5.4 mg/dL (9.0-27.0); Calcium 8.9 mg/dL (8.7-10.3); Carbon Dioxide 24.6 mmol/L (21.6-31.8); Chloride 105 mmol/L (96-109); Glucose 120 mg/dL (70-110); Potassium 3.6 mmol/L (3.5-5.5); Sodium 140 mmol/L (135-145)
[2024-02-13 11:14] LABS: Basophils # (A) 0.03 X 10*3/uL (0.00-0.10); Basophils % (A) 0.5 %; Eosinophils # (A) 0.15 X 10*3/uL (0.04-0.35); Eosinophils % (A) 2.6 %; Lymphocytes # (A) 1.78 X 10*3/uL (0.90-5.00); Lymphocytes % (A) 31.2 %; Monocytes % (A) 10.5 %; Neutrophils # (A) 3.12 X 10*3/uL (1.80-7.70); Neutrophils % (A) 54.8 %; RBC Morphology Normal (Normal)
--- NOTE | 2024-02-13 17:04 | P.PN ---
Subjective Progress Note Date: 02/13/24 Principal diagnosis: Reason for follow-up is right herpes zoster ophthalmicus Patient is a 78-year-old female with a past medical history significant for hypertension hyperlipidemia osteoarthritis SVT hypothyroidism and thyroid cancer presented to hospital with rash to the forehead periorbital area has been diagnosed with the herpes zoster ophthalmicus. On today's evaluation that is 02/13/2024, Patient is afebrile this morning and denies any chills, patient still having swelling to the periorbital area but mention slight improvement denies any pain on movement of the eyeball no chest pain shortness of breath or cough no abdominal pain or diarrhea. Patient white count is 5.70, creatinine 0.8 on oh cultures Objective - Vital Signs Vital signs: Vital Signs Temp 98.0 F 02/13/24 07:00 Pulse 62 02/13/24 07:00 Resp 17 02/13/24 07:00 BP 162/76 02/13/24 07:00 Pulse Ox 96 02/13/24 07:00 FiO2 21 02/12/24 08:36 Intake & Output 02/12/24 02/13/24 02/13/24 18:59 06:59 18:59 Intake Total 358 0 Balance 358 0 Intake: Oral 358 0 Other: # Voids 3 0 - Exam GENERAL DESCRIPTION: An elderly female lying in bed in no distress HEENT: Right periorbital rash has decreased in intensity RESPIRATORY SYSTEM: Unlabored breathing , decreased breath sounds at bases HEART: S1 S2 regular rate and rhythm , ABDOMEN: Soft , no tenderness EXTREMITIES: No edema feet - Labs CBC & Chem 7: 02/13/24 06:58 02/13/24 06:58 Labs: Abnormal Lab Results - Last 24 Hours (Table) 02/12/24 Range/Units 05:40 BUN 7.1 L (9.0-27.0) mg/dL BUN/Creatinine Ratio 8.88 L (12.00-20.00) Ratio Calcium 8.6 L (8.7-10.3) mg/dL Assessment and Plan (1) Herpes zoster ophthalmicus of right eye Current Visit: Yes Status: Acute Code(s): B02.30 - ZOSTER OCULAR DISEASE, UNSPECIFIED SNOMED Code(s): 50030476 Plan: 1patient presented to hospital with vesicular rash to the right forehead and periorbital area in this patient with evidence of shingles involving the V1 dermatome of the trigeminal nerve with no evidence of any secondary bacterial cellulitis 2-patient did have minimal clinical improvement, plan is to continue with acyclovir 10 mg/kg IV every 8 hours for another 24 to 40-hour before transition to oral antivirals Dictation was produced using [employer] dictation software. please excuse any grammatical, word or spelling errors. Time with Patient: Less than 30
--- NOTE | 2024-02-13 19:43 | P.PN ---
Subjective Progress Note Date: 02/13/24 History of present illness; 78-year-old female with past medical history significant for hypertension, hyperlipidemia, osteoarthritis, history of SVT, history of thyroid cancer, history of trigeminal neuralgia who presented to ED for worsening right facial rash. Patient stated that she noticed right face swelling redness and pain on Tuesday before Thanksgiving which progressively got worse. Patient was seen by PCP and was prescribed narcotic medication for pain and acyclovir. Patient was referred to see water taxi ferry operator Dr. Khanna was unavailable and patient was referred to [facility] Nat was evaluated by Dr. Martinez and patient was told that she had herpes zoster without eye involvement, apparently patient was prescribed a different antiviral medication patient was not able to i dentify. Patient stated that she started to notice worsening right face swelling and pain despite taking her medication and decided come to the ER. In the ED patient was afebrile, heart rate 63, respiratory rate 16, blood pressure was elevated 181/74 initially. Patient was saturating 98% on room air. CBC was unremarkable with normal WBCs, normal hemoglobin, mildly low platelet 142. CMP was also unremarkable. Troponin was negative. UA showed cloudy appearance, 35 RBCs, 11 WBCs, 9 squamous epithelial cells, moderate leukocyte Estrace. Interval History: Patient was seen and examined today. Right-sided facial swelling and redness slowly improving. Patient feeling better today as compared to yesterday. Denied any fever or chills overnight. Denied any issues with the vision. Infectious disease is consulted and following, discussed with infectious disease, recommended to continue IV acyclovir for 2 more days in the hospital 02/13/2024 Patient is seen in follow-up today following maintained on antivirals showing some improvement and redness and swelling of the right facial and forehead region. Patient continues to have vesicles with some minimal crusting noted and continues to have some swelling of the right upper eyelid. Patient reports some discomfort although manageable on current regimen and is maintained on gabapentin. Infectious disease recommending another 24 to 48 hours of close monitoring of the orbital region and IV antivirals prior to discharging home on oral medications. Patient is currently afebrile with no reports of chest pain or shortness of breath. Patient denies nausea or vomiting and is tolerating diet. Patient reports her appetite is fair as she does not really care for the food here. Labs within normal limits and vital signs stable. Will discuss further with infectious disease regarding discharge planning. REVIEW OF SYSTEMS: CONSTITUTIONAL: No fever, no malaise,. CARDIOVASCULAR: No chest pain, no palpitations, no syncope. PULMONARY: No shortness of breath, no cough, GASTROINTESTINAL: No diarrhea, no nausea, no vomiting, no abdominal pain. NEUROLOGICAL: No headaches, no weakness, PHYSICAL EXAMINATION: GENERAL: The patient is alert and oriented x3, Well developed, well nourished. Elderly appearing, obese HEENT: Mild swelling although showing some improvement, less erythematous , tenderness involving V1 on the right, mild periorbital swelling on the left. CARDIOVASCULAR: S1 and S2 present. No murmurs, rubs, or gallops. PULMONARY: Chest is clear to auscultation, no wheezing or crackles. ABDOMEN: Soft, nontender, nondistended, normoactive bowel sounds. No palpable organomegaly. MUSCULOSKELETAL: No joint swelling or deformity. EXTREMITIES: No cyanosis, clubbing, or pedal edema. NEUROLOGICAL: Gross neurological examination did not reveal any focal deficits. SKIN: No rashes. Assessment: -Herpes zoster: Cranial nerve V1 eyelid without ocular involvement -Hypertension -History of TIA -Hypothyroidism -Trigeminal neuralgia history -History of SVT -Obesity with a BMI of 32.0 -GI prophylaxis -DVT prophylaxis -Full code Plan: Patient will be continued on IV acyclovir with infectious disease following r ecommending 24-48 more hours on IV prior to transitioning to oral antivirals Continue monitoring for improvements in swelling and avoid itching or scratching. Continue with supportive care Patient was evaluated by ENT outpatient recommending outpatient follow-up Will follow-up on repeat labs and continue to monitor closely Possible discharge planning in the next 24 to 48 hours The impression and plan of care has been dictated by Thelma Rayo, Nurse Practitioner as directed. Dr. Marvin MD I have performed a history and examination and MDM of this patient, discussed the same with the dictator, and agree with the dictator's assessment and plan as written ,documented as a scribe. Based on total visit time, I have performed more than 50% of the visit. Objective - Vital Signs Vital signs: Vital Signs Temp 98.0 F 02/13/24 07:00 Pulse 62 02/13/24 07:00 Resp 17 02/13/24 07:00 BP 162/76 02/13/24 07:00 Pulse Ox 96 02/13/24 07:00 FiO2 21 02/12/24 08:36 Intake & Output 02/12/24 02/13/24 02/13/24 18:59 06:59 18:59 Intake Total 358 0 Balance 358 0 Intake: Oral 358 0 Other: # Voids 3 0 - Labs CBC & Chem 7: 02/13/24 06:58 02/13/24 06:58 Labs: Abnormal Lab Results - Last 24 Hours (Table) 02/12/24 02/13/24 Range/Units 05:40 06:58 BUN 7.1 L 5.4 L (9.0-27.0) mg/dL BUN/Creatinine Ratio 8.88 L 6.75 L (12.00-20.00) Ratio Glucose 120 H (70-110) mg/dL Calcium 8.6 L (8.7-10.3) mg/dL
--- NOTE | 2024-02-14 13:08 | P.PN ---
Subjective Progress Note Date: 02/14/24 Principal diagnosis: Reason for follow-up is right herpes zoster ophthalmicus Patient is a 78-year-old female with a past medical history significant for hypertension hyperlipidemia osteoarthritis SVT hypothyroidism and thyroid cancer presented to hospital with rash to the forehead periorbital area has been diagnosed with the herpes zoster ophthalmicus. On today's evaluation that is 02/14/2024,the patient denies any fever or any chills, patient is breathing comfortably on room air, the patient right periorbital swelling discomfort slightly decreased she is able to open her right eye slightly, denies chest pain shortness of breath and no significant cough, patient denies abdominal pain, no nausea vomiting or diarrhea. No new lab has been obtained today Objective - Vital Signs Vital signs: Vital Signs Temp 97.4 F L 02/14/24 07:02 Pulse 73 02/14/24 07:02 Resp 14 02/14/24 07:02 BP 150/79 02/14/24 07:02 Pulse Ox 97 02/14/24 07:02 FiO2 21 02/12/24 08:36 Intake & Output 02/13/24 02/14/24 02/14/24 18:59 06:59 18:59 Intake Total 118 Balance 118 Intake: Oral 118 Other: # Voids 2 2 - Exam GENERAL DESCRIPTION: An elderly female lying in bed in no distress HEENT: Right periorbital rash has decreased in intensity RESPIRATORY SYSTEM: Unlabored breathing , decreased breath sounds at bases HEART: S1 S2 regular rate and rhythm , ABDOMEN: Soft , no tenderness EXTREMITIES: No edema feet - Labs CBC & Chem 7: 02/13/24 06:58 02/13/24 06:58 Labs: Abnormal Lab Results - Last 24 Hours (Table) 02/13/24 Range/Units 06:58 BUN 5.4 L (9.0-27.0) mg/dL BUN/Creatinine Ratio 6.75 L (12.00-20.00) Ratio Glucose 120 H (70-110) mg/dL Assessment and Plan (1) Herpes zoster ophthalmicus of right eye Current Visit: Yes Status: Acute Code(s): B02.30 - ZOSTER OCULAR DISEASE, UNSPECIFIED SNOMED Code(s): 71252629 Plan: 1patient presented to hospital with vesicular rash to the right forehead and periorbital area in this patient with evidence of shingles involving the V1 dermatome of the trigeminal nerve with no evidence of any secondary bacterial cellulitis 2-patient did have some clinical improvement however will continue with IV acyclovir for another 24 hours before transition to oral question concern answered Dictation was produced using [employer] dictation software. please excuse any grammatical, word or spelling errors. Time with Patient: Less than 30
--- NOTE | 2024-02-14 19:23 | P.PN ---
Subjective Progress Note Date: 02/14/24 History of present illness; 78-year-old female with past medical history significant for hypertension, hyperlipidemia, osteoarthritis, history of SVT, history of thyroid cancer, history of trigeminal neuralgia who presented to ED for worsening right facial rash. Patient stated that she noticed right face swelling redness and pain on Tuesday before Thanksgiving which progressively got worse. Patient was seen by PCP and was prescribed narcotic medication for pain and acyclovir. Patient was referred to see hospice spiritual care coordinator Dr. Khanna was unavailable and patient was referred to [facility] Nat was evaluated by Dr. Martinez and patient was told that she had herpes zoster without eye involvement, apparently patient was prescribed a different antiviral medication patient was not able to i dentify. Patient stated that she started to notice worsening right face swelling and pain despite taking her medication and decided come to the ER. In the ED patient was afebrile, heart rate 63, respiratory rate 16, blood pressure was elevated 181/74 initially. Patient was saturating 98% on room air. CBC was unremarkable with normal WBCs, normal hemoglobin, mildly low platelet 142. CMP was also unremarkable. Troponin was negative. UA showed cloudy appearance, 35 RBCs, 11 WBCs, 9 squamous epithelial cells, moderate leukocyte Estrace. Interval History: Patient was seen and examined today. Right-sided facial swelling and redness slowly improving. Patient feeling better today as compared to yesterday. Denied any fever or chills overnight. Denied any issues with the vision. Infectious disease is consulted and following, discussed with infectious disease, recommended to continue IV acyclovir for 2 more days in the hospital 02/13/2024 Patient is seen in follow-up today following maintained on antivirals showing some improvement and redness and swelling of the right facial and forehead region. Patient continues to have vesicles with some minimal crusting noted and continues to have some swelling of the right upper eyelid. Patient reports some discomfort although manageable on current regimen and is maintained on gabapentin. Infectious disease recommending another 24 to 48 hours of close monitoring of the orbital region and IV antivirals prior to discharging home on oral medications. Patient is currently afebrile with no reports of chest pain or shortness of breath. Patient denies nausea or vomiting and is tolerating diet. Patient reports her appetite is fair as she does not really care for the food here. Labs within normal limits and vital signs stable. Will discuss further with infectious disease regarding discharge planning. 02/14/2024 Patient is seen and evaluated in follow-up today reporting some improvement in swelling and redness of the right side of the face. Patient continues to have significant upper and lower eyelid swelling of the right but is clinically improving. Infectious disease following recommend monitoring overnight for further improvement on IV antivirals prior to transition to oral. Patient is afebrile with no reported chest pain or shortness of breath. Patient has been up and walking frequently and is also requesting to have Lovenox subcutaneous injections discontinued. Patient reports she is very active and is up multiple times the entire day doing exercises and walking frequently. Recommend continued increased activity as tolerated and possible SCDs. Will monitor overnight and discuss discharge planning with infectious disease next 24 hours. REVIEW OF SYSTEMS: CONSTITUTIONAL: No fever, no malaise,. CARDIOVASCULAR: No chest pain, no palpitations, no syncope. PULMONARY: No shortness of breath, no cough, GASTROINTESTINAL: No diarrhea, no nausea, no vomiting, no abdominal pain. NEUROLOGICAL: No headaches, no weakness, PHYSICAL EXAMINATION: GENERAL: The patient is alert and oriented x3, Well developed, well nourished. Elderly appearing, obese HEENT: Mild swelling although showing some improvement, less erythematous , tenderness involving V1 on the right, continued upper and lower eyelid swelling with some minimal improvement CARDIOVASCULAR: S1 and S2 present. No murmurs, rubs, or gallops. PULMONARY: Chest is clear to auscultation, no wheezing or crackles. ABDOMEN: Soft, nontender, nondistended, normoactive bowel sounds. No palpable organomegaly. MUSCULOSKELETAL: No joint swelling or deformity. EXTREMITIES: No cyanosis, clubbing, or pedal edema. NEUROLOGICAL: Gross neurological examination did not reveal any focal deficits. SKIN: No rashes. Assessment: -Herpes zoster: Cranial nerve V1 eyelid without ocular involvement -Hypertension -History of TIA -Hypothyroidism -Trigeminal neuralgia history -History of SVT -Obesity with a BMI of 32.0 -GI prophylaxis -DVT prophylaxis -Full code Plan: Patient will be continued on IV acyclovir with infectious disease following recommending an additional 24 more hours on IV prior to transitioning to oral antivirals Continue monitoring for improvements in swelling and avoid itching or scratching. Continue with supportive care Patient was evaluated by ENT outpatient recommending outpatient follow-up Encouraged increased activity and frequent walking Recommending keeping head elevated minimal 35 degrees at all times. Possible discharge planning in the next 24 hours The impression and plan of care has been dictated by Thelma Rayo, Nurse Practitioner as directed. Dr. Marvin MD I have performed a history and examination and MDM of this patient, discussed the same with the dictator, and agree with the dictator's assessment and plan as written ,documented as a scribe. Based on total visit time, I have performed more than 50% of the visit. Objective - Vital Signs Vital signs: Vital Signs Temp 97.4 F L 02/14/24 07:02 Pulse 73 02/14/24 07:02 Resp 14 02/14/24 07:02 BP 150/79 02/14/24 07:02 Pulse Ox 97 02/14/24 07:02 FiO2 21 02/12/24 08:36 Intake & Output 02/13/24 02/14/24 02/14/24 18:59 06:59 18:59 Intake Total 118 Balance 118 Intake: Oral 118 Other: # Voids 2 2 - Labs CBC & Chem 7: 02/13/24 06:58 02/13/24 06:58
[2024-02-15 07:52] VITALS: BP 154/82; PULSE 71; RESP 16; TEMP 98.7
--- NOTE | 2024-02-15 12:19 | P.PN ---
Subjective Progress Note Date: 02/15/24 Principal diagnosis: Reason for follow-up is right herpes zoster ophthalmicus Patient is a 78-year-old female with a past medical history significant for hypertension hyperlipidemia osteoarthritis SVT hypothyroidism and thyroid cancer presented to hospital with rash to the forehead periorbital area has been diagnosed with the herpes zoster ophthalmicus. On today's evaluation that is 02/15/2024,the patient remains to be afebrile, patient is on room air not requiring supplemental oxygen and denies any shortness of breath no chest pain or cough.Patient denies having any nausea or vomiting, no abdominal pain and no diarrhea, the patient right periorbital swelling and pain has improved she is able to open her eye feeling better wants to go home. No new labs has been obtained today Objective - Vital Signs Vital signs: Vital Signs Temp 98.7 F 02/15/24 07:51 Pulse 71 02/15/24 07:51 Resp 16 02/15/24 07:51 BP 154/82 02/15/24 07:51 Pulse Ox 95 02/15/24 07:51 FiO2 21 02/12/24 08:36 Intake & Output 02/14/24 02/15/24 02/15/24 18:59 06:59 18:59 Intake Total 118 Balance 118 Intake: Oral 118 Other: Voiding Method Toilet # Voids 3 2 - Exam GENERAL DESCRIPTION: An elderly female lying in bed in no distress HEENT: Right periorbital rash has decreased in intensity RESPIRATORY SYSTEM: Unlabored breathing , decreased breath sounds at bases HEART: S1 S2 regular rate and rhythm , ABDOMEN: Soft , no tenderness EXTREMITIES: No edema feet - Labs CBC & Chem 7: 02/13/24 06:58 02/13/24 06:58 Assessment and Plan (1) Herpes zoster ophthalmicus of right eye Current Visit: Yes Status: Acute Code(s): B02.30 - ZOSTER OCULAR DISEASE, UNSPECIFIED SNOMED Code(s): 29640972 Plan: 1patient presented to hospital with vesicular rash to the right forehead and periorbital area in this patient with evidence of shingles involving the V1 dermatome of the trigeminal nerve with no evidence of any secondary bacterial cellulitis 2-patient has shown clinical improvement and should able to finish therapy with oral Valtrex 1 g p.o. 3 times daily x 7 days and close outpatient follow-up discussed with JOB ANALYST for admitting team Dictation was produced using [employer] dictation software. please excuse any gram matical, word or spelling errors. Time with Patient: Less than 30
--- NOTE | 2024-02-20 10:23 | P.DS ---
Providers Date of admission: 02/10/24 17:02 Expected date of discharge: 02/15/24 Attending physician: Marcus Watkins Consults: 02/10/24 17:02 Consult Physician Routine Consulting Provider: Dennis Sanabria Consult Reason/Comments: zosterOpthalmicus Do you want consulting provider notified?: Yes 02/11/24 13:42 Consult Physician Routine Consulting Provider: Damian Johnson Consult Reason/Comments: Herpez zoster - Right Face Do you want consulting provider notified?: Yes Primary care physician: Ramone Cobos Hospital Course: Final diagnosis -Herpes zoster: Cranial nerve V1 eyelid without ocular involvement -Hypertension -History of TIA -Hypothyroidism -Trigeminal neuralgia history -History of SVT -Obesity with a BMI of 32.0 -GI prophylaxis -DVT prophylaxis -Full code Discharge disposition Patient is being discharged in a stable condition with guarded prognosis to home. Patient will follow-up with Dr. Cobos in the outpatient setting upon discharge. Patient is to continue with Valtrex as directed for the next week and close outpatient follow-up with infectious disease as scheduled. Total time taken is greater than 35 minutes. Hospital course This is a 78-year-old female who was recently admitted with swelling and pain of the right side of the face with herpes zoster being closely monitored. Patient being followed by infectious disease maintained on IV antivirals showing some clinical improvement and patient is to continue on a week of Valtrex and close outpatient follow-up with her neurologist as well as her primary care provider. Patient was also seen and evaluated by ENT recommending outpatient follow-up and continuing current regimen. Instructed to avoid rubbing or scratching the area, extreme cold or heat situations and avoiding the sun. Patient has been cleared by consultation for discharge. Please refer to consultation note for further HPI. Currently no reports of chest pain, shortness of breath, or palpitations. Patient is afebrile. No reports of nausea or vomiting and patient is tolerating diet. Patient will be discharged home today. Guarded prognosis Physical exam: Gen: This is a 78-year-old female who is awake, alert and oriented x 3, well- developed, well-nourished, obese HEENT: Head is atraumatic, normocephalic. Pupils equal, round. Sclerae is anicteric. Right-sided facial swelling significantly improved, some redness persists and there is some crusting and less lesions noted. Upper and lower eyelid swelling although is improved. NECK: Supple. No JVD. No lymphadenopathy. No thyromegaly. LUNGS: Clear to auscultation. No wheezes or rhonchi. No intercostal retractions. HEART: Regular rate and rhythm. No murmur. ABDOMEN: Soft. Bowel sounds are present. No masses. No tenderness. EXTREMITIES: No pedal edema. No calf tenderness. NEUROLOGICAL: Patient is awake, alert and oriented x3. Cranial nerves 2 through 12 are grossly intact. Please refer to medication reconciliation sheet for a list of medications. The impression and plan of care has been dictated by Thelma Rayo, Nurse Practitioner as directed. Dr. Marvin MD I have performed a history and examination and MDM of this patient, discussed the same with the dictator, and agree with the dictator's assessment and plan as written ,documented as a scribe. Based on total visit time, I have performed more than 50% of the visit. Patient Condition at Discharge: Fair Plan - Discharge Summary Discharge Rx Participant: No New Discharge Prescriptions: New Artificial Tears-Hypromellose [Artificial Tear Drops] 1 drops BOTH EYES QID PRN ml PRN Reason: Dry Eye(S) Phenylephrine 2.5% Ophth Soln [Ronald-Synephrine Ophth] 1 drops BOTH EYES DIRECTED 7 Days #5 ml Acetaminophen Tab [Tylenol] 650 mg PO Q6HR PRN tab PRN Reason: Fever And/ Or Pain Erythromycin Ophth Oint [Romycin Ophth Oint] 1 applic RIGHT EYE Q4HR #1 each Continue Levothyroxine Sodium [Synthroid] 88 mcg PO DAILY amLODIPine [Norvasc] 5 mg PO DAILY Aspirin 81 mg PO DAILY #30 tab Atorvastatin [Lipitor] 80 mg PO DAILY ALPRAZolam [Xanax] 0.25 mg PO BID PRN PRN Reason: Anxiety valACYclovir HCL [Valtrex] 1,000 mg PO TID 7 Days #21 tab Gabapentin 600 mg PO BID lamoTRIgine [LaMICtal] 75 mg PO BID carBAMazepine [carBAMazepine ER] 200 mg PO BID Discharge Medication List Levothyroxine Sodium [Synthroid] 88 mcg PO DAILY 05/16/15 [History] amLODIPine [Norvasc] 5 mg PO DAILY 03/08/17 [History] Gabapentin 600 mg PO BID 09/22/23 [History] carBAMazepine [carBAMazepine ER] 200 mg PO BID 09/22/23 [History] lamoTRIgine [LaMICtal] 75 mg PO BID 09/22/23 [History] Aspirin 81 mg PO DAILY #30 tab 09/24/23 [Rx] ALPRAZolam [Xanax] 0.25 mg PO BID PRN 02/10/24 [History] Atorvastatin [Lipitor] 80 mg PO DAILY 02/10/24 [History] Acetaminophen Tab [Tylenol] 650 mg PO Q6HR PRN tab 02/15/24 [Rx] Artificial Tears-Hypromellose [Artificial Tear Drops] 1 drops BOTH EYES QID PRN ml 02/15/24 [Rx] Erythromycin Ophth Oint [Romycin Ophth Oint] 1 applic RIGHT EYE Q4HR #1 each 02/15/24 [Rx] Phenylephrine 2.5% Ophth Soln [Ronald-Synephrine Ophth] 1 drops BOTH EYES DIRECTED 7 Days #5 ml 02/15/24 [Rx] valACYclovir HCL [Valtrex] 1,000 mg PO TID 7 Days #21 tab 02/15/24 [Rx] Follow up Appointment(s)/Referral(s): Ramone Cobos [Primary Care Provider] - 1-2 days Damian Johnson MD [STAFF PHYSICIAN] - 02/22/24 1:30 pm Activity/Diet/Wound Care/Special Instructions: Activity limited until follow-up Follow-up with primary care provider on discharge Follow-up with infectious disease in 1 week Continue taking medications as prescribed Avoid drastic light and sun exposure to the area Avoid itching or scratching the area Discharge Disposition: HOME SELF-CARE
== END 2024-02-15 12:15 | disposition home or self-care (01) | DRG 125 ==
LOC: EC 13:12 → 6NMEDSUR 17:02
PROVIDERS: ADMIT Hospitalist; ATTEND Hospitalist
DX: B02.30 Zoster ocular disease, unspecified (principal); E03.9 Hypothyroidism, unspecified; E78.5 Hyperlipidemia, unspecified; F40.240 Claustrophobia; G50.0 Trigeminal neuralgia; I10 Essential (primary) hypertension; E66.9 Obesity, unspecified; Z68.32 Body mass index [BMI] 32.0-32.9, adult; Z96.1 Presence of intraocular lens; Z79.890 Hormone replacement therapy; Z79.82 Long term (current) use of aspirin; Z79.899 Other long term (current) drug therapy; Z82.49 Family history of ischemic heart disease and other diseases of the circulatory system; Z85.850 Personal history of malignant neoplasm of thyroid; Z86.73 Personal history of transient ischemic attack (TIA), and cerebral infarction without residual deficits; Z90.710 Acquired absence of both cervix and uterus
CPT/HCPCS: 36415; 80048; 80053; 81001; 83605; 83735; 83880; 84100; 84484; 85025; 85610; 85730; 93005; 94760; 96365; 96366; 96375; 99284

== ENCOUNTER 2024-10-07 10:08 | Observation (INO) | payer MEDICARE ==
[2024-10-07] MEDS: ASPIRIN 81 MG PO STA (10:58)
[2024-10-07] MEDS: NITROGLYCERIN OINT 1 INCH/GM PACKET TOPICAL STA (10:59)
[2024-10-07] MEDS: SODIUM CHLORIDE 0.9% 500 ML 500 ML IV STA (11:00)
[2024-10-07 11:04] LABS: Basophils % (A) 0 %; Eosinophils # (A) 0.1 k/uL (0-0.7); Eosinophils % (A) 2 %; HCT 41.6 % (34.0-46.0); HGB 13.3 gm/dL (11.4-16.0); Lymphocytes # (A) 1.2 k/uL (1.0-4.8); Lymphocytes % (A) 21 %; MCH 29.6 pg (25.0-35.0); MCV 92.3 fL (80.0-100.0); Mean Platelet Volume 7.9; Monocytes # (A) 0.4 k/uL (0-1.0); Monocytes % (A) 7 %; Neutrophils # (A) 3.7 k/uL (1.3-7.7); Neutrophils % (A) 66 %; Platelet Count 200 k/uL (150-450); RBC 4.51 m/uL (3.80-5.40); RDW 13.9 % (11.5-15.5); WBC 5.6 k/uL (3.8-10.6)
[2024-10-07 11:17] LABS: INR 0.9 (<1.2); Prothrombin Time 9.9 sec (10.0-12.5)
[2024-10-07 11:20] LABS: ALT 15 U/L (4-34); AST 23 U/L (14-36); African American GFR (CKD) 74 (>60 ml/min/1.73 sqM); Albumin 4.2 g/dL (3.5-5.0); Alkaline Phosphatase 101 U/L (38-126); Anion Gap 7 mmol/L; Blood Urea Nitrogen 14 mg/dL (7-17); Calcium 9.2 mg/dL (8.4-10.2); Carbon Dioxide 26 mmol/L (22-30); Chloride 106 mmol/L (98-107); Glucose 90 mg/dL (74-99); Non-African American GFR(CKD) 64 (>60 ml/min/1.73 sqM); Potassium 4.1 mmol/L (3.5-5.1); Sodium 139 mmol/L (137-145); Total Bilirubin 0.6 mg/dL (0.2-1.3); Total Protein 6.7 g/dL (6.3-8.2)
--- NOTE | 2024-10-07 11:23 | ED ---
General Adult HPI - General Chief complaint: Chest Pain Stated complaint: chest pain Time Seen by Provider: 10/07/24 10:15 Source: patient, RN notes reviewed, old records reviewed Mode of arrival: ambulatory Limitations: no limitations - History of Present Illness Initial comments: This is a 79-year-old female with a past medical history significant for high blood pressure and high cholesterol. Patient also has a very strong family history of heart disease. Patient states this morning she woke up rolled onto her left side and started having left-sided chest pain that was into her neck and down her arm. Patient denied any difficulty breathing or diaphoretic episode. Patient denies any vomiting but states she was mildly nauseated. Patient denies any recent fever chills or cough. Patient denies any diarrhea. - Related Data Home Medications Medication Instructions Recorded Confirmed Levothyroxine Sodium [Synthroid] 88 mcg PO DAILY 05/16/15 02/10/24 amLODIPine [Norvasc] 5 mg PO DAILY 03/08/17 02/10/24 Gabapentin 600 mg PO BID 09/22/23 02/10/24 carBAMazepine [carBAMazepine ER] 200 mg PO BID 09/22/23 02/10/24 lamoTRIgine [LaMICtal] 75 mg PO BID 09/22/23 02/10/24 ALPRAZolam [Xanax] 0.25 mg PO BID PRN 02/10/24 02/10/24 Atorvastatin [Lipitor] 80 mg PO DAILY 02/10/24 02/10/24 Previous Rx's Medication Instructions Recorded Aspirin 81 mg PO DAILY #30 tab 09/24/23 Acetaminophen Tab [Tylenol] 650 mg PO Q6HR PRN tab 02/15/24 Artificial Tears-Hypromellose 1 drops BOTH EYES QID PRN ml 02/15/24 [Artificial Tear Drops] Erythromycin Ophth Oint [Romycin 1 applic RIGHT EYE Q4HR #1 each 02/15/24 Ophth Oint] Phenylephrine 2.5% Ophth Soln 1 drops BOTH EYES DIRECTED 7 02/15/24 [Ronald-Synephrine Ophth] Days #5 ml valACYclovir HCL [Valtrex] 1,000 mg PO TID 7 Days #21 tab 02/15/24 Allergies Allergy/AdvReac Type Severity Reaction Status Date / Time codeine Allergy Nausea & Verified 10/07/24 10:14 Vomiting, RASH, SWELLING hydrocodone bitartrate Allergy Nausea & Verified 10/07/24 10:14 [From Vicodin] Vomiting, RASH, SWELLING morphine Allergy RASH, Verified 10/07/24 10:14 SWELLING BANDAID Allergy Rash/Hives Uncoded 10/07/24 10:14 Review of Systems ROS Statement: Those systems with pertinent positive or pertinent negative responses have been documented in the HPI. ROS Other: All systems not noted in ROS Statement are negative. Past Medical History Past Medical History: Cancer, Hyperlipidemia, Hypertension, Neurologic Disorder, Osteoarthritis (OA), Supraventricular Tachycardia (SVT), Thyroid Disorder Additional Past Medical History / Comment(s): LBBB; TRIGEMINAL NEURALGIA- hospitalized in October for acute episode @[facility], hx. THYROID cancer History of Any Multi-Drug Resistant Organisms: None Reported Past Surgical History: Cardiac Ablation, Heart Catheterization, Hysterectomy, Joint Replacement, Orthopedic Surgery Additional Past Surgical History / Comment(s): RT knee arthroscopy; Gamma KNIFE TX TRIGEMINAL NEURALGIA; NASAL PROC; I[employer]D FACIAL MOLE, thyroidectomy, colonoscopy, left knee replaced, rhizotomy of trigeminal nerve @[facility] October 2017, loop recorder Past Anesthesia/Blood Transfusion Reactions: Motion Sickness Additional Past Anesthesia/Blood Transfusion Reaction / Comment(s): VERY CLAUSTROPHOBIC WITH ANYTHING CLOSE TO FACE INCL O2 TUBING Past Psychological History: No Psychological Hx Reported Smoking Status: Never smoker Past Alcohol Use History: None Reported Past Drug Use History: None Reported - Past Family History Father Family Medical History: Cancer Additional Family Medical History / Comment(s): Father at age 79 from leukemia Son(s) Additional Family Medical History / Comment(s): Patient has 2 sons and one has osteoarthritis status post bilateral hip replacements. Daughter(s) Additional Family Medical History / Comment(s): Patient has one daughter with history of Arnold-Chiari. Mother Family Medical History: Cancer Additional Family Medical History / Comment(s): Mother at age 71 from lung cancer Father Brother(s) Family Medical History: Cancer Additional Family Medical History / Comment(s): Patient has one brother with history of prostate cancer, stroke, diabetes, hypertension. Sister(s) Family Medical History: Cancer Additional Family Medical History / Comment(s): BREAST CANCER General Exam - General Exam Comments Initial Comments: GENERAL: Patient is well-developed and well-nourished. Patient is nontoxic and well- hydrated and is in mild distress. ENT: Neck is soft and supple. No significant lymphadenopathy is noted. Oropharynx is clear. Moist mucous membranes. Neck has full range of motion without eliciting any pain. EYES: The sclera were anicteric and conjunctiva were pink and moist. Extraocular movements were intact and pupils were equal round and reactive to light. Eyelids were unremarkable. PULMONARY: Unlabored respirations. Good breath sounds bilaterally. No audible rales rhonchi or wheezing was noted. CARDIOVASCULAR: There is a regular rate and rhythm without any murmurs gallops or rubs. Patient's chest is very tender on the left side no bruising or rashes or abnormalities noted ABDOMEN: Soft and nontender with normal bowel sounds. SKIN: Skin is clear with no lesions or rashes and otherwise unremarkable. NEUROLOGIC: Patient is alert and oriented x3. Cranial nerves II through XII are grossly intact. Motor and sensory are also intact. Normal speech, volume and content. Symmetrical smile. MUSCULOSKELETAL: Normal extremities with adequate strength and full range of motion. No lower extremity swelling or edema. No calf tenderness. LYMPHATICS: No significant lymphadenopathy is noted PSYCHIATRIC: Normal psychiatric evaluation. Limitations: no limitations Course Vital Signs 10/07/24 10/07/24 10/07/24 10:10 10:31 10:32 Temperature 97.6 F Pulse Rate 59 L 54 L 56 L Respiratory 18 18 18 Rate Blood Pressure 171/77 145/111 145/111 O2 Sat by Pulse 99 98 98 Oximetry 10/07/24 10/07/24 11:00 11:30 Temperature Pulse Rate 61 56 L Respiratory 18 18 Rate Blood Pressure 166/86 172/85 O2 Sat by Pulse 98 Oximetry Medical Decision Making - Medical Decision Making EKG is interpreted by myself. EKG shows sinus bradycardia with an occasional PAC at 55 bpm VA was 184 QRS 140 QT interval is 466 QTc is 454. Patient's EKG shows no ST segment elevation or depression Was pt. sent in by a medical professional or institution (, [facility], SENIOR C WEB DEVELOPER, urgent care, hospital, or [place] health care facility...) When possible be specific @ -No Did you speak to anyone other than the patient for history (EMS, parent, family, police, friend...)? What history was obtained from this source @ -No Did you review nursing and triage notes (agree or disagree)? Why? @ -I reviewed and agree with nursing and triage notes Were old charts reviewed (outside hosp., previous admission, EMS record, old EKG, old radiological studies, urgent care reports/EKG's, [place] health care facility records)? Report findings @ -No old charts were reviewed Differential Diagnosis? @ -Differential Chest Pain: Stable Angina, Unstable Angina, STEMI, NSTEMI Aortic Dissection, Pneumothorax, Musculoskeletal, Esophageal Spasm GERD, Cholecystitis, Pancreatitis, Zoster, this is not meant to be an all-inclusive list. EKG interpreted by me (3pts min.). @ -As above X-rays interpreted by me (1pt min.). @ -Chest x-ray shows no acute abnormality CT interpreted by me (1pt min.). @ -None done U/S interpreted by me (1pt. min.). @ -None done What testing was considered but not performed or refused? (CT, X-rays, U/S, labs)? Why? @ -None What meds were considered but not given or refused? Why? @ -None Did you discuss the management of the patient with other professionals (professionals i.e. , PA, SENIOR C WEB DEVELOPER, lab, RT, psych nurse, social secretary, surgical services asst, teacher, court collections officer, supportive employment case manager)? Give summary @ -I spoke with [facility] they agreed to admit the patient Was smoking cessation discussed for >3mins.? @ -No Was critical care preformed (if so, how long)? @ -No Were there social determinants of health that impacted care today? How? (Homelessness, low income, unemployed, alcoholism, drug addiction, transportation, low edu. Level, literacy, decrease access to med. care, care home, r ehab)? @ -No Was there de-escalation of care discussed even if they declined (Discuss DNR or withdrawal of care, Hospice)? DNR status @ -No What co-morbidities impacted this encounter? (DM, HTN, Smoking, COPD, CAD, Cancer, CVA, ARF, Chemo, Hep., AIDS, mental health diagnosis, sleep apnea, morbid obesity)? @ -None Was patient admitted / discharged? Hospital course, mention meds given and route, prescriptions, significant lab abnormalities, going to OR and other pertinent info. @ -Patient's chest x-ray showed no acute abnormality. Patient's lab work was within normal range. Patient continued to have some chest pain and neck pain. [facility] will be admitted to [facility] cardiology will be consulted Undiagnosed new problem with uncertain prognosis? @ -No Drug Therapy requiring intensive monitoring for toxicity (Heparin, Nitro, Insulin, Cardizem)? @ -No Were any procedures done? @ -No Diagnosis/symptom? @ -Chest pain Acute, or Chronic, or Acute on Chronic? @ -Acute Uncomplicated (without systemic symptoms) or Complicated (systemic symptoms)? @ -Complicated Side effects of treatment? @ -No Exacerbation, Progression, or Severe Exacerbation? @ -No Poses a threat to life or bodily function? How? (Chest pain, USA, HI, pneumonia, PE, COPD, DKA, ARF, appy, cholecystitis, CVA, Diverticulitis, Homicidal, Suicidal, threat to staff... and all critical care pts) @ -Yes this can lead to an HI and endorgan dysfunction - Lab Data Result diagrams: 10/07/24 10:55 10/07/24 10:55 Lab Results 10/07/24 10/07/24 10/07/24 Range/Units 10:55 10:55 10:55 WBC 5.6 (3.8-10.6) k/uL RBC 4.51 (3.80-5.40) m/uL Hgb 13.3 (11.4-16.0) gm/dL Hct 41.6 (34.0-46.0) % MCV 92.3 (80.0-100.0) fL MCH 29.6 (25.0-35.0) pg MCHC 32.0 (31.0-37.0) g/dL RDW 13.9 (11.5-15.5) % Plt Count 200 (150-450) k/uL MPV 7.9 Neutrophils % 66 % Lymphocytes % 21 % Monocytes % 7 % Eosinophils % 2 % Basophils % 0 % Neutrophils # 3.7 (1.3-7.7) k/uL Lymphocytes # 1.2 (1.0-4.8) k/uL Monocytes # 0.4 (0-1.0) k/uL Eosinophils # 0.1 (0-0.7) k/uL Basophils # 0.0 (0-0.2) k/uL PT 9.9 L (10.0-12.5) sec INR 0.9 (<1.2) APTT 24.0 (22.0-30.0) sec D-Dimer 0.21 (<0.60) mg/L FEU Sodium 139 (137-145) mmol/L Potassium 4.1 (3.5-5.1) mmol/L Chloride 106 (98-107) mmol/L Carbon Dioxide 26 (22-30) mmol/L Anion Gap 7 mmol/L BUN 14 (7-17) mg/dL Creatinine 0.87 (0.52-1.04) mg/dL Est GFR (CKD-EPI)AfAm 74 (>60 ml/min/1.73 sqM) Est GFR (CKD-EPI)NonAf 64 (>60 ml/min/1.73 sqM) Glucose 90 (74-99) mg/dL Calcium 9.2 (8.4-10.2) mg/dL Magnesium 2.0 (1.6-2.3) mg/dL Total Bilirubin 0.6 (0.2-1.3) mg/dL AST 23 (14-36) U/L ALT 15 (4-34) U/L Alkaline Phosphatase 101 (38-126) U/L Troponin I (0.000-0.034) ng/mL Total Protein 6.7 (6.3-8.2) g/dL Albumin 4.2 (3.5-5.0) g/dL 10/07/24 Range/Units 10:55 WBC (3.8-10.6) k/uL RBC (3.80-5.40) m/uL Hgb (11.4-16.0) gm/dL Hct (34.0-46.0) % MCV (80.0-100.0) fL MCH (25.0-35.0) pg MCHC (31.0-37.0) g/dL RDW (11.5-15.5) % Plt Count (150-450) k/uL MPV Neutrophils % % Lymphocytes % % Monocytes % % Eosinophils % % Basophils % % Neutrophils # (1.3-7.7) k/uL Lymphocytes # (1.0-4.8) k/uL Monocytes # (0-1.0) k/uL Eosinophils # (0-0.7) k/uL Basophils # (0-0.2) k/uL PT (10.0-12.5) sec INR (<1.2) APTT (22.0-30.0) sec D-Dimer (<0.60) mg/L FEU Sodium (137-145) mmol/L Potassium (3.5-5.1) mmol/L Chloride (98-107) mmol/L Carbon Dioxide (22-30) mmol/L Anion Gap mmol/L BUN (7-17) mg/dL Creatinine (0.52-1.04) mg/dL Est GFR (CKD-EPI)AfAm (>60 ml/min/1.73 sqM) Est GFR (CKD-EPI)NonAf (>60 ml/min/1.73 sqM) Glucose (74-99) mg/dL Calcium (8.4-10.2) mg/dL Magnesium (1.6-2.3) mg/dL Total Bilirubin (0.2-1.3) mg/dL AST (14-36) U/L ALT (4-34) U/L Alkaline Phosphatase (38-126) U/L Troponin I <0.012 (0.000-0.034) ng/mL Total Protein (6.3-8.2) g/dL Albumin (3.5-5.0) g/dL Disposition Clinical Impression: Chest pain Disposition: ADMITTED IP TO THIS [facility] Referrals: Ramone Cobos [Primary Care Provider] - 1-2 days Time of Disposition: 11:39
--- NOTE | 2024-10-07 11:31 | XR ---
EXAMINATION TYPE: XR chest 2V DATE OF EXAM: 10/07/2024 11:20 AM COMPARISON: Chest radiographs from 08/26/2016 TECHNIQUE: XR chest 2V Frontal and lateral views of the chest. CLINICAL INDICATION:Female, 79 years old with history of Chest Pain; FINDINGS: Lungs/Pleura: There is no evidence of pleural effusion, focal consolidation, or pneumothorax. Pulmonary vascularity: Unremarkable. Heart/mediastinum: Cardiomediastinal silhouette is enlarged and stable. Musculoskeletal: No acute osseous pathology. Other findings: Loop recorder within the left anterior chest. IMPRESSION: No acute cardiopulmonary disease/process. [facility], , 10/07/2024 11:29 AM
[2024-10-07] MEDS ORDERED: NITROGLYCERIN SL TABS 0.4 MG TAB SUBLINGUAL PRN (11:39)
[2024-10-07] MEDS: NITROGLYCERIN OINT 1 INCH/GM PACKET TOPICAL SCH (11:46)
[2024-10-07] MEDS: KETOROLAC 15 MG/ML 1 ML VIAL IVP STA (12:18)
--- NOTE | 2024-10-07 17:05 | P.HPIM ---
History of Present Illness H&P Date: 10/07/24 Chief Complaint: Chest pain 79-year-old female with a past medical history significant for high blood pressure and high cholesterol. Patient also has a very strong family history of heart disease. Patient states this morning she woke up rolled onto her left side and started having left-sided chest pain that was into her neck and down her arm. Patient denied any difficulty breathing or diaphoretic episode. Patient denies any vomiting but states she was mildly nauseated. Patient denies any recent fever chills or cough. Patient denies any diarrhea. Blood work completed in ED reveals a WBC of 5.6, hemoglobin of 13.3 and platelet count of 200, sodium 139, potassium 4.1, BUN/creatinine 14/0.87 and blood glucose of 90, troponin less than 0.012, D-dimer is normal at 0.21 Chest x-ray is negative for any acute process EKG shows sinus bradycardia with an occasional PAC at 55 bpm DE was 184 QRS 140 QT interval is 466 QTc is 454. Patient's EKG shows no ST segment elevation or depression Review of Systems REVIEW OF SYSTEMS: CONSTITUTIONAL: No fever, no malaise, no fatigue. HEENT: No recent visual problems or hearing problems. Denied any sore throat. CARDIOVASCULAR: Planes of chest pain, orthopnea, PND, no palpitations, no syncope. PULMONARY: No shortness of breath, no cough, no hemoptysis. GASTROINTESTINAL: No diarrhea, no nausea, no vomiting, no abdominal pain. NEUROLOGICAL: No headaches, no weakness, no numbness. HEMATOLOGICAL: Denies any bleeding or petechiae. GENITOURINARY: Denies any burning micturition, frequency, or urgency. MUSCULOSKELETAL/RHEUMATOLOGICAL: Denies any joint pain, swelling, or any muscle pain. ENDOCRINE: Denies any polyuria or polydipsia. The rest of the 14-point review of systems is negative. Past Medical History Past Medical History: Cancer, Hyperlipidemia, Hypertension, Neurologic Disorder, Osteoarthritis (OA), Supraventricular Tachycardia (SVT), Thyroid Disorder Additional Past Medical History / Comment(s): LBBB; TRIGEMINAL NEURALGIA- hospitalized in October for acute episode @[facility], hx. THYROID cancer History of Any Multi-Drug Resistant Organisms: None Reported Past Surgical History: Cardiac Ablation, Heart Catheterization, Hysterectomy, Joint Replacement, Orthopedic Surgery Additional Past Surgical History / Comment(s): RT knee arthroscopy; Gamma KNIFE TX TRIGEMINAL NEURALGIA; NASAL PROC; I&D FACIAL MOLE, thyroidectomy, colonoscopy, left knee replaced, rhizotomy of trigeminal nerve @[facility] October 2017, loop recorder Past Anesthesia/Blood Transfusion Reactions: Motion Sickness Additional Past Anesthesia/Blood Transfusion Reaction / Comment(s): VERY CLAUSTROPHOBIC WITH ANYTHING CLOSE TO FACE INCL O2 TUBING Past Psychological History: No Psychological Hx Reported Smoking Status: Never smoker Past Alcohol Use History: None Reported Past Drug Use History: None Reported - Past Family History Father Family Medical History: Cancer Additional Family Medical History / Comment(s): Father at age 79 from leukemia Son(s) Additional Family Medical History / Comment(s): Patient has 2 sons and one has osteoarthritis status post bilateral hip replacements. Daughter(s) Additional Family Medical History / Comment(s): Patient has one daughter with history of Arnold-Chiari. Mother Family Medical History: Cancer Additional Family Medical History / Comment(s): Mother at age 71 from lung cancer Father Brother(s) Family Medical History: Cancer Additional Family Medical History / Comment(s): Patient has one brother with history of prostate cancer, stroke, diabetes, hypertension. Sister(s) Family Medical History: Cancer Additional Family Medical History / Comment(s): BREAST CANCER Medications and Allergies Home Medications Medication Instructions Recorded Confirmed Type Levothyroxine Sodium [Synthroid] 88 mcg PO DAILY 05/16/15 10/07/24 History amLODIPine [Norvasc] 5 mg PO HS 03/08/17 10/07/24 History lamoTRIgine [LaMICtal] 75 mg PO BID 09/22/23 10/07/24 History Atorvastatin [Lipitor] 80 mg PO HS 02/10/24 10/07/24 History Artificial Tears-Hypromellose 1 drops BOTH EYES BID 10/07/24 10/07/24 History [Artificial Tear Drops] Folic Acid (Unknown Dose) 1 tab PO DAILY 10/07/24 10/07/24 History Gabapentin [Neurontin] 300 mg PO BID 10/07/24 10/07/24 History Magnesium (Unknown Dose) 1 tab PO DAILY 10/07/24 10/07/24 History Vitamin D (Unknown Dose) 1 cap PO DAILY 10/07/24 10/07/24 History carBAMazepine [TEGretol] 200 mg PO BID 10/07/24 10/07/24 History Allergies Allergy/AdvReac Type Severity Reaction Status Date / Time codeine Allergy Nausea & Verified 10/07/24 13:41 Vomiting, RASH, SWELLING hydrocodone bitartrate Allergy Nausea & Verified 10/07/24 13:41 [From Vicodin] Vomiting, RASH, SWELLING morphine Allergy RASH, Verified 10/07/24 13:41 SWELLING BANDAID Allergy Rash/Hives Uncoded 10/07/24 13:41 Physical Exam Vitals: Vital Signs Temp Pulse Resp BP Pulse Ox 10/07/24 11:30 56 L 18 172/85 98 10/07/24 11:00 61 18 166/86 10/07/24 10:32 56 L 18 145/111 98 10/07/24 10:31 54 L 18 145/111 98 10/07/24 10:10 97.6 F 59 L 18 171/77 99 Intake and Output 10/06/24 10/07/24 10/07/24 22:59 06:59 14:59 Other: Weight 78.471 kg GENERAL: Patient is well-developed and well-nourished. Patient is nontoxic and well- hydrated and is in mild distress. ENT: Neck is soft and supple. No significant lymphadenopathy is noted. Oropharynx is clear. Moist mucous membranes. Neck has full range of motion without eliciting any pain. EYES: The sclera were anicteric and conjunctiva were pink and moist. Extraocular movements were intact and pupils were equal round and reactive to light. Eyelids were unremarkable. PULMONARY: Unlabored respirations. Good breath sounds bilaterally. No audible rales rhonchi or wheezing was noted. CARDIOVASCULAR: There is a regular rate and rhythm without any murmurs gallops or rubs. Patient's chest is very tender on the left side no bruising or rashes or abnormalities noted ABDOMEN: Soft and nontender with normal bowel sounds. SKIN: Skin is clear with no lesions or rashes and otherwise unremarkable. NEUROLOGIC: Patient is alert and oriented x3. Cranial nerves II through XII are grossly intact. Motor and sensory are also intact. Normal speech, volume and content. Symmetrical smile. MUSCULOSKELETAL: Normal extremities with adequate strength and full range of motion. No lower extremity swelling or edema. No calf tenderness. PSYCHIATRIC: Normal psychiatric evaluation. Results CBC & Chem 7: 10/07/24 10:55 03/02/25 10:55 Labs: Abnormal Lab Results - Last 24 Hours (Table) 10/07/24 Range/Units 10:55 PT 9.9 L (10.0-12.5) sec Assessment and Plan Assessment: 1. Chest pain rule out acute coronary syndrome -Patient reports chest pain radiating to the neck and left arm; has been admitted to telemetry -We will monitor EKG and trend troponin -Recommend 2D echo; urology is consulted 2. Chest wall pain; reports pain on palpation of anterior chest wall and ribs; reports pain is different from the pain that has been radiating to the neck and arm -Chest x-ray is completed and does not reveal any acute abnormality; patient denies any trauma or lifting anything heavy -- We will start patient on muscle relaxer 3. Hyperlipidemia; Lipitor 80 mg p.o. nightly 4. Hypothyroidism; levothyroxine 88 mcg daily; will order TSH and free T4 5. Trigeminal neuralgia; patient is currently on Lamictal 75 mg twice daily along with Tegretol 200 mg twice daily; Neurontin 300 mg twice daily 6. Hypertension; Norvasc 5 mg p.o. nightly DVT prophylaxis; SCDs/subcu heparin CODE STATUS; full code
[2024-10-07] MEDS: amLODIPine 5 MG TAB PO SCH (21:25)
[2024-10-07] MEDS: carBAMazepine 200 MG TAB PO SCH (21:25)
[2024-10-07] MEDS: GABAPENTIN 300 MG CAP PO SCH (21:25)
[2024-10-07] MEDS: lamoTRIgine 25 MG TAB PO SCH (21:25)
[2024-10-07] MEDS: ATORVASTATIN 80 MG TAB PO SCH (21:25)
[2024-10-07] MEDS: ARTIFICIAL TEARS-HYPROMELLOSE DROPS 15 ML BTL BOTH EYES SCH (21:26)
[2024-10-07] MEDS: HEPARIN SODIUM,PORCINE 5,000 UNIT/ML 1 ML VIAL SQ SCH (21:26)
[2024-10-07] MEDS: ACETAMINOPHEN TAB 325 MG TAB PO PRN (21:59)
[2024-10-08] MEDS: LEVOTHYROXINE 88 MCG TAB PO SCH (05:15)
[2024-10-08 08:17] LABS: Basophils # (A) 0.02 X 10*3/uL (0.00-0.10); Basophils % (A) 0.4 %; Eosinophils # (A) 0.18 X 10*3/uL (0.04-0.35); Eosinophils % (A) 3.7 %; HCT 35.8 % (37.2-46.3); HGB 11.5 g/dL (12.0-15.0); Lymphocytes # (A) 1.44 X 10*3/uL (0.90-5.00); Lymphocytes % (A) 29.9 %; MCH 29.6 pg (27.0-32.0); MCHC 32.1 g/dL (32.0-37.0); MCV 92.3 FL (80.0-97.0); Monocytes # (A) 0.51 X 10*3/uL (0.20-1.00); Monocytes % (A) 10.6 %; NRBC Per 100 WBC 0 X 10*3/uL (0.00-0.01); Neutrophils # (A) 2.66 X 10*3/uL (1.80-7.70); Neutrophils % (A) 55.2 %; Platelet Count 177 X 10*3/uL (140-440); RBC 3.88 X 10*6/uL (4.10-5.20); RDW 13.8 % (11.5-14.5); WBC 4.82 X 10*3/uL (4.50-10.00)
[2024-10-08] MEDS ORDERED: REGADENOSON 0.4 MG/5 ML SYRINGE IV PRN (08:31)
[2024-10-08] MEDS ORDERED: AMINOPHYLLINE 500 MG/20 ML VIAL IV PRN (08:31)
[2024-10-08] MEDS ORDERED: CAFFEINE CITRATE 60 MG/3 ML VIAL IV PRN (08:31)
[2024-10-08 08:32] LABS: BUN/Creat Ratio 12.22 Ratio (12.00-20.00); Calcium 8.5 mg/dL (8.7-10.3); Carbon Dioxide 25.5 mmol/L (21.6-31.8); Chloride 109 mmol/L (96-109); Chol/HDL Ratio 3.69 Ratio; Glucose 89 mg/dL (70-110); LDL Cholesterol,Calculated 112.4 mg/dL (0.0-131.0); Potassium 4.1 mmol/L (3.5-5.5); Sodium 143 mmol/L (135-145)
--- NOTE | 2024-10-08 10:55 | P.CRDCN ---
History of Present Illness Consult date: 10/08/24 Consult reason: chest pain History of present illness: This is a 79-year-old female patient of Dr. Evans with past medical history of valvular heart disease, trigeminal neuralgia, hypertension, dyslipidemia, aortic regurgitation, TIA 2023, hypothyroidism. We have been asked to evaluate the patient for chest pain. Patient states that she got up yesterday out of bed rolled onto her left side and felt a terrible pain in the left side of her chest. She states she got up to have breakfast and the chest pain Worsening. She decided to check her blood pressure and it was 192/103. She also then checked her loop recorder and she said it went orange and she then called 911. She denies any dizziness, palpitations or shortness of breath. She states the chest pain is still located on the left side. When she rolls onto her left chest wall. She has worsening of the pain. She is normally very active. She has had no lower extremity edema no dizziness. She is a non-smoker. No cough and no fever. No blood in her stools or urine. Blood pressure 163/78, heart rate 58, pulse ox 96% on room air. Blood pressure readings have been high overnight. Patient is status post 500 cc IV fluid bolus, Toradol and Nitropaste. -EKG: Sinus rhythm with left bundle branch block. -Chest x-ray: No acute process. -Laboratory studies: CBC, INR, D-dimer, CMP all within normal limits. Troponin negative x 3 draws. -Home cardiac medications: Amlodipine 5 mg at bedtime, atorvastatin 80 mg at bedtime, also on levothyroxine 88 mcg daily -Echocardiogram performed 09/23/2023 revealed normal LV systolic function. Mild mitral, aortic, tricuspid regurgitation. -Lexiscan Cardiolite stress test performed in the office in February 2020 revealed inconclusive EKG part of the stress test due to left bundle branch block. Normal myocardial perfusion and function. -Diagnostic EP study performed 05/2015: status post radiofrequency ablation of atrial tachycardia. -Status post loop recorder. Review Of Systems: At the time of my exam: CONSTITUTIONAL: Denies fever or chills. HEENT: Denies blurred vision, vision changes, or eye pain. Denies hemoptysis CARDIOVASCULAR: Denies chest pain. Denies orthopnea. Denies PND. Denies palpitations RESPIRATORY: Denies shortness of breath. GASTROINTESTINAL: Denies abdominal pain. Denies nausea or vomiting. HEMATOLOGIC: Denies bleeding disorders. GENITOURINARY: Denies any blood in urine. SKIN: Denies puritis. Denies rash. Physical examination: Gen: This is a 79-year-old female in no acute distress VS: reviewed HEENT: Head is atraumatic, normocephalic. Pupils equal, round. Sclerae is anicteric. NECK: Supple. No JVD. LUNGS: Clear to auscultation. No wheezes or rhonchi. No intercostal retractions. HEART: Regular rate and rhythm. Systolic murmur. Diastolic murmur ABDOMEN: Soft No tenderness. EXTREMITIES: No pedal edema. No calf tenderness. NEUROLOGICAL: Patient is awake, alert and oriented x3. Assessment: Atypical chest pain, acute coronary syndrome ruled out. Chest pain most likely muscular skeletal. History of valvular heart disease History of trigeminal neuralgia History of TIA Hypertension Dyslipidemia History of atrial tachycardia status post radiofrequency ablation Plan: Resume patient's home cardiac medications Schedule patient for Lexiscan stress test Obtain 2-D echocardiogram and Doppler study to assess cardiac structure and function If testing is unremarkable, patient would be cleared for discharge and follow-up with Dr. Evans in 1 to 2 weeks. Thank you kindly for this consultation. Nurse practitioner note has been reviewed, I agree with documented findings and plan of care. Patient was seen and examined. This is a 79-year-old female Past Medical History Past Medical History: Cancer, CVA/TIA, Hyperlipidemia, Hypertension, Neurologic Disorder, Osteoarthritis (OA), Supraventricular Tachycardia (SVT), Thyroid Disorder Additional Past Medical History / Comment(s): LBBB; TRIGEMINAL NEURALGIA-hospitalized in October for acute episode @[facility], hx. THYROID cancer, TIA in 2023 History of Any Multi-Drug Resistant Organisms: None Reported Past Surgical History: Cardiac Ablation, Heart Catheterization, Hysterectomy, Joint Replacement, Orthopedic Surgery Additional Past Surgical History / Comment(s): RT knee arthroscopy; Gamma KNIFE TX TRIGEMINAL NEURALGIA; NASAL PROC; I&D FACIAL MOLE, thyroidectomy, colonoscopy, left knee replaced, rhizotomy of trigeminal nerve @[facility] October 2017, loop recorder, bilat cataract removal Past Anesthesia/Blood Transfusion Reactions: Motion Sickness Additional Past Anesthesia/Blood Transfusion Reaction / Comment(s): VERY CLAUSTROPHOBIC WITH ANYTHING CLOSE TO FACE INCL O2 TUBING Past Psychological History: No Psychological Hx Reported Additional Psychological History / Comment(s): VERY CLAUSTROPhOBIC Smoking Status: Never smoker Past Alcohol Use History: None Reported Additional Past Alcohol Use History / Comment(s): Patient is a lifelong nonsmoker. She denies any medical marijuana, marijuana, street drug or alcohol use. Past Drug Use History: None Reported - Past Family History Father Family Medical History: Cancer Additional Family Medical History / Comment(s): Father at age 79 from leukemia Son(s) Additional Family Medical History / Comment(s): Patient has 2 sons and one has osteoarthritis status post bilateral hip replacements. Daughter(s) Additional Family Medical History / Comment(s): Patient has one daughter with history of Arnold-Chiari. Mother Family Medical History: Cancer Additional Family Medical History / Comment(s): Mother at age 71 from lung cancer Father Brother(s) Family Medical History: Cancer Additional Family Medical History / Comment(s): Patient has one brother with history of prostate cancer, stroke, diabetes, hypertension. Sister(s) Family Medical History: Cancer Additional Family Medical History / Comment(s): BREAST CANCER Medications and Allergies Home Medications Medication Instructions Recorded Confirmed Type Levothyroxine Sodium [Synthroid] 88 mcg PO DAILY 05/16/15 10/07/24 History amLODIPine [Norvasc] 5 mg PO HS 03/08/17 10/07/24 History lamoTRIgine [LaMICtal] 75 mg PO BID 09/22/23 10/07/24 History Atorvastatin [Lipitor] 80 mg PO HS 02/10/24 10/07/24 History Artificial Tears-Hypromellose 1 drops BOTH EYES BID 10/07/24 10/07/24 History [Artificial Tear Drops] Folic Acid (Unknown Dose) 1 tab PO DAILY 10/07/24 10/07/24 History Gabapentin [Neurontin] 300 mg PO BID 10/07/24 10/07/24 History Magnesium (Unknown Dose) 1 tab PO DAILY 10/07/24 10/07/24 History Vitamin D (Unknown Dose) 1 cap PO DAILY 10/07/24 10/07/24 History carBAMazepine [TEGretol] 200 mg PO BID 10/07/24 10/07/24 History Allergies Allergy/AdvReac Type Severity Reaction Status Date / Time codeine Allergy Nausea & Verified 10/07/24 13:41 Vomiting, RASH, SWELLING hydrocodone bitartrate Allergy Nausea & Verified 10/07/24 13:41 [From Vicodin] Vomiting, RASH, SWELLING morphine Allergy RASH, Verified 10/07/24 13:41 SWELLING BANDAID Allergy Rash/Hives Uncoded 10/07/24 13:41 Physical Exam Vitals: Vital Signs Temp Pulse Pulse Resp BP BP Pulse Ox 10/08/24 02:46 98.5 F 58 L 15 163/78 96 10/08/24 00:39 97.3 F L 63 16 188/52 96 10/07/24 21:23 176/82 10/07/24 20:25 97.6 F 67 15 195/92 96 10/07/24 19:44 56 L 18 140/72 96 10/07/24 18:36 98 F 55 L 18 162/71 98 10/07/24 16:00 161/81 10/07/24 15:30 57 L 13 160/78 10/07/24 15:00 58 L 13 166/81 10/07/24 14:30 59 L 20 159/77 98 10/07/24 14:00 58 L 18 163/81 96 10/07/24 13:30 57 L 18 155/75 96 10/07/24 13:00 59 L 17 159/82 97 10/07/24 12:30 56 L 19 171/86 98 10/07/24 12:00 98.1 F 55 L 18 169/86 96 10/07/24 11:30 56 L 18 172/85 98 10/07/24 11:00 61 18 166/86 10/07/24 10:32 56 L 18 145/111 98 10/07/24 10:31 54 L 18 145/111 98 10/07/24 10:10 97.6 F 59 L 18 171/77 99 Intake and Output 10/07/24 10/08/24 10/08/24 22:59 06:59 14:59 Other: # Voids 1 2 Weight 78.471 kg Results 10/08/24 04:31 10/08/24 04:31 Cardiac Enzymes 10/07/24 10/07/24 10/07/24 Range/Units 10:55 10:55 14:02 AST 23 (14-36) U/L Troponin I <0.012 <0.012 (0.000-0.034) ng/mL 10/07/24 Range/Units 17:30 AST (14-36) U/L Troponin I <0.012 (0.000-0.034) ng/mL Coagulation 10/07/24 Range/Units 10:55 PT 9.9 L (10.0-12.5) sec APTT 24.0 (22.0-30.0) sec CBC 10/07/24 Range/Units 10:55 WBC 5.6 (3.8-10.6) k/uL RBC 4.51 (3.80-5.40) m/uL Hgb 13.3 (11.4-16.0) gm/dL Hct 41.6 (34.0-46.0) % Plt Count 200 (150-450) k/uL Comprehensive Metabolic Panel 10/07/24 Range/Units 10:55 Sodium 139 (137-145) mmol/L Potassium 4.1 (3.5-5.1) mmol/L Chloride 106 (98-107) mmol/L Carbon Dioxide 26 (22-30) mmol/L BUN 14 (7-17) mg/dL Creatinine 0.87 (0.52-1.04) mg/dL Glucose 90 (74-99) mg/dL Calcium 9.2 (8.4-10.2) mg/dL AST 23 (14-36) U/L ALT 15 (4-34) U/L Alkaline Phosphatase 101 (38-126) U/L Total Protein 6.7 (6.3-8.2) g/dL Albumin 4.2 (3.5-5.0) g/dL Current Medications Generic Name Dose Route Start Last Admin Trade Name Freq PRN Reason Stop Dose Admin Acetaminophen 650 mg 10/07/24 21:30 10/08/24 05:15 Acetaminophen Tab 325 Mg Tab PO 650 mg Q6HR PRN Administration Fever and/ or Pain Amlodipine Besylate 5 mg 10/07/24 21:00 10/07/24 21:25 Amlodipine 5 Mg Tab PO 5 mg HS YELENA Administration Artificial Tears 1 drops 10/07/24 21:00 10/07/24 21:26 Artificial Tears-Hypromellose Drops 15 Ml Btl BOTH EYES 1 drops BID YELENA Administration Aspirin 325 mg 10/08/24 09:00 Aspirin 325 Mg Tab PO DAILY [facility] Atorvastatin Calcium 80 mg 10/07/24 21:00 10/07/24 21:25 Atorvastatin 80 Mg Tab PO 80 mg HS YELENA Administration Carbamazepine 200 mg 10/07/24 21:00 10/07/24 21:25 Carbamazepine 200 Mg Tab PO 200 mg BID YELENA Administration Folic Acid 1 mg 10/08/24 09:00 Folic Acid 1 Mg Tab PO DAILY [facility] Gabapentin 300 mg 10/07/24 21:00 10/07/24 21:25 Gabapentin 300 Mg Cap PO 300 mg BID YELENA Administration Heparin Sodium (Porcine) 5,000 unit 10/07/24 21:00 10/07/24 21:26 Heparin Sodium,Porcine 5,000 Unit/Ml 1 Ml Vial SQ 5,000 unit Q12HR YELENA Administration Lamotrigine 75 mg 10/07/24 21:00 10/07/24 21:25 Lamotrigine 25 Mg Tab PO 75 mg BID YELENA Administration Levothyroxine Sodium 88 mcg 10/08/24 06:30 10/08/24 05:15 Levothyroxine 88 Mcg Tab PO 88 mcg 0630 [facility] Administration Nitroglycerin 0.4 mg 10/07/24 11:39 Nitroglycerin Sl Tabs 0.4 Mg Tab SUBLINGUAL Q5M PRN Chest Pain Nitroglycerin 1 inch 10/07/24 12:00 10/08/24 06:23 Nitroglycerin Oint 1 Inch/Gm Packet TOPICAL Not Given Q6HR YELENA Intake and Output 10/07/24 10/08/24 10/08/24 22:59 06:59 14:59 Other: # Voids 1 2 Weight 78.471 kg 10/07/24 10:55 10/07/24 10:55
[2024-10-08] MEDS: ASPIRIN 325 MG TAB PO SCH (11:28)
[2024-10-08] MEDS: FOLIC ACID 1 MG TAB PO SCH (11:28)
--- NOTE | 2024-10-08 11:52 | CA ---
Lexiscan Nuclear Stress Test Report Name: Lisa Garcia Exam Date: 10/08/2024 10:19 Exam Location: [place] Stress Ht (in): 63 Wt (lb): 173 BSA: 1.82 Ordering Phys: Reyes Matias Referring Phys: REYES MATIAS Technologist: Mumtaz Hirsch Age: 79 Gender: F : 1945 Procedure CPT: Indications: Reflex order-Stress test ICD-10 Codes: Patient History: CHEST PAIN, HTN, PRIOR TIA, HYPERCHOLESTEROLEMIA, FAMILY HX OF HEART DISEASE, PRIOR HEART CATH, Medications: SEE LIST,,, Meds past 24 hrs: Pretest Chest Pain: STRESS TEST Lexiscan Protocol Exercise Duration (min:sec): 01:[address] Depressions (mm): Angina Score: Yanez Score: Resting HR (bpm): 56 Peak HR (bpm): 77 Resting BP (mmHg): 159 / 87 Peak BP (mmHg): 186 / 77 MPHR: 142 Target HR: 121 % MPHR: 54 METS: 1.0 Total Dose: Peak Dose: Atropine: Double Product: 16785 BP Response: Stress Termination: INFUSION COMPLETE Stress Symptoms: NO SYMPTOMS Stress Summary: ECG ANALYSIS Resting ECG: Sinus rhythm. Left bundle branch block. No arrhythmias. Stress ECG: No ECG changes from baseline with Lexiscan infusion. CONCLUSIONS No ECG evidence of ischemia with Lexiscan infusion. Nuclear test results to follow. Dr. Ana Francis MD (Electronically Signed) Final Date: 08 October 2024 11:49
--- NOTE | 2024-10-08 16:06 | NM ---
EXAMINATION TYPE: NM stress lexiscan cardiolite DATE OF EXAM: 10/08/2024 COMPARISON: NONE CLINICAL INDICATION: Female, 79 years old with history of chest pain; TECHNIQUE: After the intravenous administration of 10.1 mCi Tc 99m Sestamibi - Cardiolite resting SP ECT images acquired 55 minutes post injection. The patient received 0.4mg Lexiscan, 26.2 mCi Tc 99m Sestamibi - Stress images obtained [address] injection FINDINGS: Review of stress and rest SPECT images demonstrates possible reversibility involving the mid to basal septal wall. No other distinct perfusion abnormality is seen. Mild left ventricular chamber enlarge ment. Gated analysis shows normal wall motion with an estimated left ventricular ejection fraction of 52 %. TID is calculated at 1.12, upper limits of normal. IMPRESSION: 1. Possible reversibility involving the mid to basal septal wall. Correlate with EKG findings. 2. Mild left ventricular dilatation and borderline LVEF of 52%. [facility], , 10/08/2024 4:04 PM
--- NOTE | 2024-10-08 17:38 | CA ---
Transthoracic Echo Report Name: Lisa Garcia Age: 79 Gender: F : 1945 Exam Date: 10/08/2024 13:42 Exam Location: [place] Echo Ht (in): 63 Wt (lb): 173 Ordering Physician: Maria Del Carmen Ayala Attending/Referring Phys: [id number], Jamie Central [employer]ilization Technician Elaina Adorno RDCS Procedure CPT: Indications: LVF Cardiac Hx: Technical Quality: Good Contrast 1: Total Dose (mL): Contrast 2: Total Dose (mL): MEASUREMENTS (Male / Female) Normal Values 2D ECHO LV Diastolic Diameter PLAX 5.4 cm 4.2 - 5.9 / 3.9 - 5.3 cm LV Systolic Diameter PLAX 4.1 cm IVS Diastolic Thickness 1.1 cm 0.6 - 1.0 / 0.6 - 0.9 cm LVPW Diastolic Thickness 1.1 cm 0.6 - 1.0 / 0.6 - 0.9 cm LV Relative Wall Thickness 0.4 RV Internal Dim ED PLAX 3.3 cm LVOT Diameter 1.9 cm LA Systolic Diameter LX 3.4 cm 3.0 - 4.0 / 2.7 - 3.8 cm LV Diastolic Volume MOD BP 126.3 cm??? 67 - 155 / 56 - 104 cm??? LV Systolic Volume MOD BP 64.6 cm??? - / 19 - 49 cm??? LV Ejection Fraction MOD BP 48.9 % >= 55 % LV Cardiac Index MOD BP 2182.2 cm???/min???m??? LV Diastolic Volume MOD 4C 116.2 cm??? LV Systolic Volume MOD 4C 63.6 cm??? LV Ejection Fraction MOD 4C 45.3 % LV Cardiac Index MOD 4C 1860.8 cm???/min???m??? LV Diastolic Length 4C 8.4 cm LV Systolic Length 4C 7.0 cm LV Diastolic Volume MOD 2C 133.3 cm??? LV Systolic Volume MOD 2C 65.6 cm??? LV Ejection Fraction MOD 2C 50.8 % LV Cardiac Index MOD 2C 2393.2 cm???/min???m??? LV Diastolic Length 2C 8.6 cm LV Systolic Length 2C 7.0 cm LA Volume 63.1 cm??? 18 - 58 / 22 - 52 cm??? LA Volume Index 33.3 cm???/m??? 16 - 28 cm???/m??? DOPPLER AI Peak Velocity 385.1 cm/s AI Peak Gradient 59.3 mmHg AI Pressure Half Time 463.5 ms MV Area PHT 2.2 cm??? Mitral E Point Velocity 65.7 cm/s Mitral A Point Velocity 85.0 cm/s Mitral E to A Ratio 0.8 MV Deceleration Time 339.1 ms TR Peak Velocity 227.1 cm/s TR Peak Gradient 20.6 mmHg Right Atrial Pressure 5.0 mmHg Pulmonary Artery Systolic Pressu 25.6 mmHg Right Ventricular Systolic Press 25.6 mmHg FINDINGS Left Ventricle Left ventricular ejection fraction is estimated at 45-50 %. Mild global hypokinesis.left ventricular cavity size normal. Right Ventricle Normal right ventricular size and function. Right ventricular systolic pressure within normal limits. Right Atrium Normal right atrial size. Left Atrium Mildly increased left atrial volume. Mitral Valve Mitral valve thickened. No mitral stenosis. Mild to moderate mitral regurgitation. Aortic Valve Trileaflet aortic valve. No aortic stenosis. Mild to moderate aortic regurgitation. Tricuspid Valve Structurally normal tricuspid valve. No tricuspid stenosis. Mild tricuspid regurgitation. Pulmonic Valve Structurally normal pulmonic valve. No pulmonic stenosis. Trace pulmonic regurgitation. Pericardium No pericardial effusion. Aorta Normal size aortic root and proximal ascending aorta. CONCLUSIONS 1. Normal left ventricular size with mild global hypokinesis 2. Mild to moderate mitral and aortic regurgitation 3. Mild tricuspid regurgitation Previewed by: Dr. Ana Francis MD (Electronically Signed) Final Date: 08 October 2024 17:37
--- NOTE | 2024-10-09 06:47 | P.PN ---
Subjective Progress Note Date: 10/08/24 Patient is eval today resting in bed comfortably. She has returned from her stress test. She states that the chest pain is gone at this time. Echocardiogram comes back with an EF of 45 to 50% normal left ventricle size with mild global hypokinesis, mild to moderate mitral and aortic regurgitation and mild tricuspid regurgitation. We are still pending the Lexiscan reports discharge will be held. Lipid panel comes back with a triglyceride level of 112 cholesterol 185 LDL 112 HDL of 50. Review of Systems Constitutional: Denied any fatigue denied any fever. Cardio vascular: denied any chest pain, palpitations Gastrointestinal: denied any nausea, vomiting, diarrhea Pulmonary: Denied any shortness of breath cough Neurologic denied any new focal deficits All inpatient medications were reviewed and appropriate changes in these medications as dictated in the interval history and assessment and plan. PHYSICAL EXAMINATION: GENERAL: The patient is alert and oriented x3, not in any acute distress. Well developed, well nourished. HEENT: Pupils are round and equally reacting to light. EOMI. No scleral icterus. No conjunctival pallor. Normocephalic, atraumatic. No pharyngeal erythema. No thyromegaly. CARDIOVASCULAR: S1 and S2 present. No murmurs, rubs, or gallops. PULMONARY: Chest is clear to auscultation, no wheezing or crackles. ABDOMEN: Soft, nontender, nondistended, normoactive bowel sounds. No palpable organomegaly. MUSCULOSKELETAL: No joint swelling or deformity. EXTREMITIES: No cyanosis, clubbing, or pedal edema. NEUROLOGICAL: Gross neurological examination did not reveal any focal deficits. SKIN: No rashes. Assessment and plan Chest pain rule out acute coronary syndrome Chest wall pain; reports pain on palpation of anterior chest wall and ribs; reports pain is different from the pain that has been radiating to the neck and arm Hyperlipidemia; Lipitor 80 mg p.o. nightly Hypothyroidism; levothyroxine 88 mcg daily; Trigeminal neuralgia; patient is currently on Lamictal 75 mg twice daily along with Tegretol 200 mg twice daily; Neurontin 300 mg twice daily Hypertension; Norvasc 5 mg p.o. nightly GI prophylaxis Plan Pending lexiscan stress reports Pending further cardiac recommendations Continue cardiac telemetry The impression and plan of care has been dictated by Cydney Mcclellan, Nurse Practitioner as directed. Dr. Aditi MD I have performed a history and physical examination and medical decision making of this patient, discussed the same with the dictator, and agree with the dictators assessment and plan as written, documented as a scribe. Based on total visit time, I have performed more than 50% of this visit. Objective - Vital Signs Vital signs: Vital Signs Temp 98.5 F 10/09/24 02:31 Pulse 51 L 10/09/24 02:31 Resp 15 10/09/24 02:31 BP 133/76 10/09/24 02:31 Pulse Ox 98 10/09/24 02:31 FiO2 Intake & Output 10/08/24 10/08/24 10/09/24 06:59 18:59 06:59 Intake Total 118 Balance 118 Weight 78.471 kg Intake: Oral 118 Other: # Voids 2 1 2 - Labs CBC & Chem 7: 10/08/24 04:31 10/08/24 04:31 Labs: Abnormal Lab Results - Last 24 Hours (Table) 10/08/24 10/08/24 Range/Units 04:31 04:31 RBC 3.88 L (4.10-5.20) X 10*6/uL Hgb 11.5 L (12.0-15.0) g/dL Hct 35.8 L (37.2-46.3) % Calcium 8.5 L (8.7-10.3) mg/dL Assessment and Plan Time with Patient: Less than 30
[2024-10-09 08:23] VITALS: RESP 16; TEMP 97.4
[2024-10-09] MEDS ORDERED: NITROGLYCERIN SL TABS 0.4 MG TAB SUBLINGUAL PRN (08:57)
[2024-10-09] MEDS ORDERED: ALPRAZolam 0.25 MG TAB PO PRN (08:57)
[2024-10-09] MEDS ORDERED: ALPRAZolam 0.5 MG TAB PO PRN (08:57)
[2024-10-09] MEDS: ATORVASTATIN 80 MG TAB PO STA (09:13)
[2024-10-09] MEDS: ASPIRIN 325 MG TAB PO STA (09:13)
[2024-10-09] MEDS: SODIUM CHLORIDE 0.9% 1,000 ML IV SCH ×2 (09:13→13:04)
[2024-10-09] MEDS: fentaNYL (PF) 50 MCG/ML 2 ML AMP IVP ONE (12:20)
[2024-10-09] MEDS: MIDAZOLAM 2 MG/2 ML VIAL IVP ONE (12:22)
[2024-10-09] MEDS: LIDOCAINE 1% INJ 10MG/ML (20 ML MDV) SQ ONE (12:22)
[2024-10-09] MEDS: VERAPAMIL SYRINGE (5 MG/10 ML) INTRAARTER ONE (12:23)
[2024-10-09] MEDS: SODIUM CHLORIDE 0.9% 1,000 ML IV ONE (12:32)
[2024-10-09] MEDS: HEPARIN SODIUM,PORCINE 10,000 UNIT in SODIUM CHLORIDE 0.9% 1,000 ML IRRIGATION ONE (12:32)
[2024-10-09] MEDS: HEPARIN SODIUM 1,000 UN/ML (10ML VL) IVP ONE (12:32)
[2024-10-09] MEDS: HEPARIN SODIUM,PORCINE (1 ML) 2,500 UNIT in SODIUM CHLORIDE 0.9% 250 ML IRRIGATION ONE (12:33)
--- NOTE | 2024-10-09 12:33 | P.PN ---
Subjective Progress Note Date: 10/09/24 Consult reason: chest pain History of present illness: This is a 79-year-old female patient of Dr. Evans with past medical history of valvular heart disease, trigeminal neuralgia, hypertension, dyslipidemia, aortic regurgitation, TIA 2023, hypothyroidism. We have been asked to evaluate the patient for chest pain. Patient states that she got up yesterday out of bed rolled onto her left side and felt a terrible pain in the left side of her chest. She states she got up to have breakfast and the chest pain Worsening. She decided to check her blood pressure and it was 192/103. She also then checked her loop recorder and she said it went orange and she then called 911. She denies any dizziness, palpitations or shortness of breath. She states the chest pain is still located on the left side. When she rolls onto her left chest wall. She has worsening of the pain. She is normally very active. She has had no lower extremity edema no dizziness. She is a non-smoker. No cough and no fever. No blood in her stools or urine. Blood pressure 163/78, heart rate 58, pulse ox 96% on room air. Blood pressure readings have been high overnight. Patient is status post 500 cc IV fluid bolus, Toradol and Nitropaste. -EKG: Sinus rhythm with left bundle branch block. -Chest x-ray: No acute process. -Laboratory studies: CBC, INR, D-dimer, CMP all within normal limits. Troponin negative x 3 draws. -Home cardiac medications: Amlodipine 5 mg at bedtime, atorvastatin 80 mg at bedtime, also on levothyroxine 88 mcg daily -Echocardiogram performed 09/23/2023 revealed normal LV systolic function. Mild mitral, aortic, tricuspid regurgitation. -Lexiscan Cardiolite stress test performed in the office in February 2020 revealed inconclusive EKG part of the stress test due to left bundle branch block. Normal myocardial perfusion and function. -Diagnostic EP study performed 05/2015: status post radiofrequency ablation of atrial tachycardia. -Status post loop recorder. 3 Patient seen and examined. Yesterday, patient underwent Lexiscan Cardiolite stress test which revealed possible reversibility involving the mid to basal septal wall. EF 52%. Discussed results of the stress test and echocardiogram with the patient and recommended cardiac catheterization today which patient is agreeable to move forward with. She states that she still has a little chest pain when she rolls over on her left side. No shortness of breath. Blood pressure 136/82, heart rate 60, pulse ox 96% on room air. Echocardiogram reveals normal LV size and mild global hypokinesis. Mild to moderate mitral and aortic regurgitation. Mild tricuspid regurgitation. Physical examination: Gen: This is a 79-year-old female in no acute distress VS: reviewed HEENT: Head is atraumatic, normocephalic. Pupils equal, round. Sclerae is anicteric. NECK: Supple. No JVD. LUNGS: Clear to auscultation. No wheezes or rhonchi. No intercostal retractions. HEART: Regular rate and rhythm. Systolic murmur. Diastolic murmur ABDOMEN: Soft No tenderness. EXTREMITIES: No pedal edema. No calf tenderness. NEUROLOGICAL: Patient is awake, alert and oriented x3. Assessment: Atypical chest pain, acute coronary syndrome ruled out. Chest pain most likely muscular skeletal. History of valvular heart disease History of trigeminal neuralgia History of TIA Hypertension Dyslipidemia History of atrial tachycardia status post radiofrequency ablation Plan: Continue patient's home cardiac medications Schedule patient for cardiac catheterization today with Dr. Francis Further recommendations depending on results of cardiac catheterization. At the time of discharge, patient will follow-up with Dr. Evans in 1 to 2 weeks. Nurse practitioner note has been reviewed, I agree with documented findings and plan of care. Patient was seen and examined. This is a 79-year-old female Objective - Vital Signs Vital signs: Vital Signs Temp 97.4 F L 10/09/24 07:00 Pulse 60 10/09/24 07:00 Resp 16 10/09/24 07:00 BP 136/82 10/09/24 07:00 Pulse Ox 96 10/09/24 07:00 FiO2 Intake & Output 10/08/24 10/09/24 10/09/24 18:59 06:59 18:59 Intake Total 118 Balance 118 Intake: Oral 118 Other: # Voids 1 2 - Labs CBC & Chem 7: 10/08/24 04:31 10/08/24 04:31
[2024-10-09] MEDS: IOPAMIDOL-370 100ML BTL INJ ONE (12:43)
[2024-10-09] MEDS ORDERED: RX INFO: IV CONTRAST WAS GIVEN 1 EACH MISC MISCELLANE PRN (12:48)
--- NOTE | 2024-10-09 12:54 | P.CARDCATH ---
Date of Procedure: 10/09/24 Description of Procedure: Cardiac Catheterization: The patient is a 79-year-old female with a history of hypertension, hyperlipidemia who presented with symptoms of chest comfort and no evidence of myocardial infarction. She had an MPI that showed evidence of stress-induced ischemia. Recommendations were made regarding cardiac catheterization, the risks and the complications were discussed with the patient who is in full understanding and agreement. Procedure Description: Patient was brought to clinical lab assistant in fasting semi-sedated state after receiving Fentanyl and Benadryl achieiving moderate conscious sedated state. Using Xylocaine Anesthesia and modified Seldinger technique, a 6-Montserratian sheath was introduced in the right radial artery . Subsequently, selective coronary angiography was performed using a 5-Montserratian 3.5 bend Alfreda catheter. Multiple views of the coronary artery including hemiaxial views were obtained. The left Alfreda catheter was used to cross the aortic valve and LVEDP was calculated. Following that, catheter and sheath were removed. Hemostasis was obtained with deployment of vascular band . There was no immediate complication. Patient was returned to room in stable condition. Of note, the patient received a total of 4000 units of intravenous heparin as well as intra-arterial verapamil. Findings: Left main: This is a large size vessel, bifurcating into LAD and left circumflex, left main has no obstructive disease. LAD: This is a large size vessel, reaching to the apex with a wraparound apex segment, giving rise to a large diagonal branch proximally. The LAD in the midsegment has 20 to 30% plaque with no high-grade stenosis Left circumflex: This is a large nondominant vessel giving rise to 3 large obtuse marginal branch, the left circumflex and its branches have no obstructive disease RCA: This is a moderately sized dominant vessel giving rise to right PDA. The right coronary artery and its branches have no obstructive disease Left Ventriculogram: Not performed Hemodynamics: There was no gradient across the aortic valve, LVEDP was 12-16 mmHg Conclusion: 1. Mild intimal disease in the mid LAD 2. No evidence of significant obstructive disease in the left circumflex and the RCA 3. Right dominance 4. Normal LVEDP Recommendations: I have recommended continue medical therapy with the aggressive coronary risks modification initiated. The findings and the recommendations were discussed with the patient and the family and they were in full understanding and agreement. Duration of sedation is 17 minutes.
[2024-10-09 16:34] VITALS: PULSE 64
[2024-10-09 16:35] VITALS: BP 130/74
[2024-10-10] MEDS ORDERED: HEPARIN SODIUM,PORCINE 10,000 UNIT in SODIUM CHLORIDE 0.9% 1,000 ML IRRIGATION PRN (07:00)
[2024-10-10] MEDS ORDERED: HEPARIN SODIUM,PORCINE (1 ML) 2,500 UNIT in SODIUM CHLORIDE 0.9% 250 ML IRRIGATION PRN (07:00)
[2024-10-10] MEDS ORDERED: ASPIRIN 81 MG PO SCH (09:00)
--- NOTE | 2024-10-11 19:54 | P.DS ---
Providers Date of admission: 10/07/24 11:39 Attending physician: Reymundo Clark MD Consults: 10/07/24 11:39 Consult Physician Urgent Consulting Provider: [facility] Consult Reason/Comments: Chest pain Do you want consulting provider notified?: Yes Primary care physician: Ramone Cobos Hospital Course: Final Diagnosis Chest pain rule out acute coronary syndrome, chest pain is atypical and felt to be musculoskeletal in nature Chest wall pain Hyperlipidemia Hypothyroidism Trigeminal neuralgia TIA 2023 Hypertension Aortic regurgitation and valvular heart disease History of atrial tachycardia ablation History of thyroid cancer with thyroidectomy Loop recorder Lifelong non-smoker Discharge Disposition Patient is stable for discharge home she has been discharged on aspirin 81 mg daily and sublingual nitroglycerin tablets for as needed chest pain. Patient has a follow-up appointment scheduled with her primary egg candler Dr. Alfred on October 16. Recommend to follow-up with her PCP Dr. Ramone Cobos 1 to 2 days. Hospital Course This is a pleasant 79-year-old female medical history significant for trigeminal neuralgia, hypertension, hyperlipidemia, hypothyroidism, aortic regurgitation, TIA in 2023, valvular heart disease. Patient follows with Dr. Alfred in the office. Patient states that the day before admission she was in her bed and rolled onto her left side and had developed a terrible pain in the left side of her chest. Since then she got up chest pain was worsening. Patient noted that she had hypertension at home with a blood pressure of 192/103. Patient has a loop recorder implanted states that it was orange and she called 911 to come into the hospital for further evaluation. She does have the chest pain continued on her left side and states that it is worsened when she rolls onto the left side of her chest wall. Patient is normally a very active person. She is not having any dizziness or lightheadedness and is having no lower extremity edema. Patient's EKG on admission revealed sinus rhythm with left bundle branch block. Her chest x-ray was negative for acute process. Troponin level is negative x 3. Echocardiogram back in 2023 reveals normal LV systolic function with mild mitral aortic and tricuspid regurgitation. Patient had a stress test performed back in 2019 which was inconclusive EKG part of her stress test due to the left bundle branch block but had normal myocardial perfusion and function. Patient had an ablation of atrial tachycardia in 2014. She has a loop recorder implanted. She was admitted to the hospital to consult placed to cardiology services. Patient underwent a Lexiscan stress test which reveals a possible reversibility involving the mid to basal septal wall correlate with EKG findings of mild left ventricular dilatation and borderline LVEF of 52%. Because of the findings of the stress test patient was taken for a cardiac catheterization which reveals mild intimal disease in the mid LAD, no evidence of significant obstructive disease in the left circumflex and RCA. Right dominant normal LV EDP patient was recommended for medical therapy with aggressive coronary risk modifications. Patient was cleared for discharge home once she has completed the post-cath recovery. Patient was discharged on home medications with the addition of aspirin 81 mg daily and she was given a prescription for sublingual nitroglycerin tablets. Patient has a follow-up appointment with her known egg candler Dr. Alfred on October 16. Please see medication reconciliation for a list of current medications. Thank you for allowing us to participate in the care of this patient. The impression and plan of care has been dictated by Cydney Mcclellan, Nurse Practitioner as directed. Dr. Aditi MD I have performed a history and physical examination and medical decision making of this patient, discussed the same with the dictator, and agree with the dictators assessment and plan as written, documented as a scribe. Based on total visit time, I have performed more than 50% of this visit. Patient Condition at Discharge: Fair Plan - Discharge Summary Discharge Rx Participant: No New Discharge Prescriptions: New Aspirin 81 mg PO DAILY #30 tab Nitroglycerin Sl Tabs [Nitrostat] 0.4 mg SUBLINGUAL Q5M PRN #25 tab PRN Reason: Chest Pain Continue Levothyroxine Sodium [Synthroid] 88 mcg PO DAILY amLODIPine [Norvasc] 5 mg PO HS Atorvastatin [Lipitor] 80 mg PO HS Vitamin D (Unknown Dose) 1 cap PO DAILY carBAMazepine [TEGretol] 200 mg PO BID Magnesium (Unknown Dose) 1 tab PO DAILY lamoTRIgine [LaMICtal] 75 mg PO BID Folic Acid (Unknown Dose) 1 tab PO DAILY Artificial Tears-Hypromellose [Artificial Tear Drops] 1 drops BOTH EYES BID Gabapentin [Neurontin] 300 mg PO BID Discharge Medication List Levothyroxine Sodium [Synthroid] 88 mcg PO DAILY 05/16/15 [History] amLODIPine [Norvasc] 5 mg PO HS 03/08/17 [History] lamoTRIgine [LaMICtal] 75 mg PO BID 09/22/23 [History] Atorvastatin [Lipitor] 80 mg PO HS 02/10/24 [History] Artificial Tears-Hypromellose [Artificial Tear Drops] 1 drops BOTH EYES BID 10/07/24 [History] Folic Acid (Unknown Dose) 1 tab PO DAILY 10/07/24 [History] Gabapentin [Neurontin] 300 mg PO BID 10/07/24 [History] Magnesium (Unknown Dose) 1 tab PO DAILY 10/07/24 [History] Vitamin D (Unknown Dose) 1 cap PO DAILY 10/07/24 [History] carBAMazepine [TEGretol] 200 mg PO BID 10/07/24 [History] Aspirin 81 mg PO DAILY #30 tab 10/09/24 [Rx] Nitroglycerin Sl Tabs [Nitrostat] 0.4 mg SUBLINGUAL Q5M PRN #25 tab 10/09/24 [Rx] Follow up Appointment(s)/Referral(s): Anastacio Evans MD [STAFF PHYSICIAN] - 10/16/24 10:45 am Ramone Cobos [Primary Care Provider] - 1-2 days Patient Instructions/Handouts: *Surgery [facility] - After Heart Catheterization - [employer] Member Instructions Activity/Diet/Wound Care/Special Instructions: Follow up with your PCP Dr Ramone Cobos 1 to 2 days Follow up with cardiology in the office in 1 to 2 weeks. NO SOAKING RIGHT WRIST IN WATER: NO POOLS, DISHES, ETC NO LIFTING MORE THAN 5LBS FOR 5 DAYS NO EXCESSIVE BENDING OR FLEXING THE RIGHT WRIST YOU MAY REMOVE DRESSING IN 24 HOURS AND LEAVE OPEN TO AIR SIGNS OF INFECTION: FEVERS, INCREASED PAIN, SWELLING, DRAINAGE OF CLOUDY FLUID IF YOU NOTICE ANY BLEEDING, APPLY FIRM PRESSURE AND GO TO NEAREST ER FOLLOW UP IN THE OFFICE WITH DR. ROMERO FOR A SITE CHECK IN ONE WEEK Discharge Disposition: HOME SELF-CARE
== END 2024-10-09 17:06 | disposition home or self-care (01) ==
LOC: EC 10:08 → 6NMEDSUR 11:39
PROVIDERS: ADMIT Internal Medicine; ATTEND Internal Medicine
DX: I25.10 Atherosclerotic heart disease of native coronary artery without angina pectoris (principal); I10 Essential (primary) hypertension; E78.00 Pure hypercholesterolemia, unspecified; E89.0 Postprocedural hypothyroidism; G50.0 Trigeminal neuralgia; I47.19 Other supraventricular tachycardia; I08.3 Combined rheumatic disorders of mitral, aortic and tricuspid valves; Z85.850 Personal history of malignant neoplasm of thyroid; Z86.73 Personal history of transient ischemic attack (TIA), and cerebral infarction without residual deficits; Z79.82 Long term (current) use of aspirin; Z79.890 Hormone replacement therapy; Z79.899 Other long term (current) drug therapy; Z88.5 Allergy status to narcotic agent; Z82.49 Family history of ischemic heart disease and other diseases of the circulatory system
CPT/HCPCS: 96372 ×3; 96374; 99285; 36415; 94760; 93005 ×2; 93017; 93306; 93458; 85379; 80061; 80053; 80048; 83735; 84484; 85025 ×2; 85610; 85730; 71046; 78452; G0378 ×3; A9500; J2250; J1644 ×5; J2003; J3010; J2785; J1885; Q9967

== ENCOUNTER 2025-01-09 15:56 | Observation (INO) | payer MEDICARE ==
[2025-01-09] MEDS: MECLIZINE 12.5 MG TAB PO STA (16:41)
[2025-01-09] MEDS: SODIUM CHLORIDE 0.9% 500 ML 500 ML IV STA (16:42)
--- NOTE | 2025-01-09 16:49 | ED ---
Dizziness HPI - General Chief Complaint: Dizziness Stated Complaint: Dizziness Time Seen by Provider: 01/09/25 16:18 Source: patient, family, RN notes reviewed Mode of arrival: wheelchair Limitations: no limitations - History of Present Illness Initial Comments: This is a 79-year-old female who presents to the emergency department for dizziness. States that she first noticed this last night around 11 PM when she was bending over. States that this has continued to persist throughout the day today. She has tried drinking water and eating, but has not noticed any relief. Describes this as feeling like she is spinning as opposed to a room spinning sensation. It does not occur when she turns her head or walks around, it only occurs when she tries to bend over. She does have a mild headache associated with this. Denies any chest pain or shortness of breath. She did have a similar episode a few months ago that was less severe and resolved on its own, however she was not evaluated at that time. She does report a history of cardiac issues and they are talking about putting in a pacemaker. MD Complaint: dizziness - Related Data Home Medications Medication Instructions Recorded Confirmed Levothyroxine Sodium [Synthroid] 88 mcg PO DAILY 05/16/15 01/09/25 amLODIPine [Norvasc] 5 mg PO DAILY 03/08/17 01/09/25 lamoTRIgine [LaMICtal] 75 mg PO BID 09/22/23 01/09/25 Atorvastatin [Lipitor] 80 mg PO HS 02/10/24 01/09/25 Gabapentin [Neurontin] 300 mg PO BID 10/07/24 01/09/25 carBAMazepine [TEGretol] 400 mg PO BID 10/07/24 01/09/25 Chlorthalidone [Hygroton] 25 mg PO DAILY 01/09/25 01/09/25 Cholecalciferol (Vitamin D3) 50 mcg PO DAILY 01/09/25 01/09/25 [Vitamin D3 (50 Mcg = 2000 Iu)] Losartan Potassium 50 mg PO BID 01/09/25 01/09/25 Previous Rx's Medication Instructions Recorded Aspirin 81 mg PO DAILY #30 tab 10/09/24 Nitroglycerin Sl Tabs [Nitrostat] 0.4 mg SUBLINGUAL Q5M PRN #25 tab 10/09/24 Allergies Allergy/AdvReac Type Severity Reaction Status Date / Time codeine Allergy Nausea & Verified 01/09/25 18:46 Vomiting, RASH, SWELLING hydrocodone bitartrate Allergy Nausea & Verified 01/09/25 18:46 [From Vicodin] Vomiting, RASH, SWELLING morphine Allergy RASH, Verified 01/09/25 18:46 SWELLING BANDAID Allergy Rash/Hives Uncoded 01/09/25 18:46 Review of Systems ROS Statement: Those systems with pertinent positive or pertinent negative responses have been documented in the HPI. ROS Other: All systems not noted in ROS Statement are negative. Past Medical History Past Medical History: Cancer, CVA/TIA, Hyperlipidemia, Hypertension, Neurologic Disorder, Osteoarthritis (OA), Supraventricular Tachycardia (SVT), Thyroid D isorder Additional Past Medical History / Comment(s): LBBB; TRIGEMINAL NEURALGIA- hospitalized in October for acute episode @[facility], hx. THYROID cancer, TIA in 2023 History of Any Multi-Drug Resistant Organisms: None Reported Past Surgical History: Cardiac Ablation, Heart Catheterization, Hysterectomy, Joint Replacement, Orthopedic Surgery Additional Past Surgical History / Comment(s): RT knee arthroscopy; Gamma KNIFE TX TRIGEMINAL NEURALGIA; NASAL PROC; I&D FACIAL MOLE, thyroidectomy, colonoscopy, left knee replaced, rhizotomy of trigeminal nerve @[facility] October 2017, loop recorder, bilat cataract removal Past Anesthesia/Blood Transfusion Reactions: Motion Sickness Additional Past Anesthesia/Blood Transfusion Reaction / Comment(s): VERY CLAUSTROPHOBIC WITH ANYTHING CLOSE TO FACE INCL O2 TUBING Past Psychological History: No Psychological Hx Reported Smoking Status: Never smoker Past Alcohol Use History: None Reported Past Drug Use History: None Reported - Past Family History Father Family Medical History: Cancer Additional Family Medical History / Comment(s): Father at age 79 from leukemia Son(s) Additional Family Medical History / Comment(s): Patient has 2 sons and one has osteoarthritis status post bilateral hip replacements. Daughter(s) Additional Family Medical History / Comment(s): Patient has one daughter with history of Arnold-Chiari. Mother Family Medical History: Cancer Additional Family Medical History / Comment(s): Mother at age 71 from lung cancer Father Brother(s) Family Medical History: Cancer Additional Family Medical History / Comment(s): Patient has one brother with history of prostate cancer, stroke, diabetes, hypertension. Sister(s) Family Medical History: Cancer Additional Family Medical History / Comment(s): BREAST CANCER General Exam Limitations: no limitations General appearance: alert, in no apparent distress Head exam: Present: atraumatic, normocephalic, normal inspection Eye exam: Present: normal appearance, PERRL, EOMI. Absent: scleral icterus, conjunctival injection, periorbital swelling Respiratory exam: Present: normal lung sounds bilaterally. Absent: respiratory distress, wheezes, rales, rhonchi, stridor Cardiovascular Exam: Present: normal rhythm, bradycardia Neurological exam: Present: alert, oriented X3, CN II-XII intact Expanded Cerebellar function: Finger to Nose: Normal, Heel to Mason: Normal, Romberg: Normal Motor strength exam: RUE: 5, LUE: 5, RLE: 5, LLE: 5 Psychiatric exam: Present: normal affect, normal mood Skin exam: Present: warm, dry, intact, normal color. Absent: rash Course Vital Signs 01/09/25 01/09/25 01/09/25 16:12 18:39 20:18 Temperature 97.5 F L Pulse Rate 57 L 67 Respiratory 20 16 Rate Blood Pressure 116/70 122/60 Blood Pressure 135/66 [Right Arm Sitting] Blood Pressure 129/61 [Right Arm Standing] Blood Pressure 138/70 [Right Arm Supine] O2 Sat by Pulse 100 98 Oximetry Medical Decision Making - Medical Decision Making This is a 79 year old female who presents to the emergency department for dizziness. Was pt. sent in by a medical professional or institution? @ -No Did you speak to anyone other than the patient for history? @ -No Did you review nursing and triage notes? @ -Yes, and I agree, it is accurate with regards to the patient's symptoms. Were old charts reviewed? @ -No Differential Diagnosis? @ -Differential Dizziness: Benign paroxysmal positional Vertigo, Meniere's disease, otitis media, acoustic neuroma, vertebrobasilar insufficiency, cerebellar stroke, encephalitis, hypovolemic, arrhythmia, coronary artery syndrome, anemia, this is not meant to be an all-inclusive list EKG interpreted by me (3pts min.)? @ -EKG interpreted by me demonstrating the following: Sinus bradycardia. Vent ricular rate 58 bpm, SC interval 213 ms, QRS duration 147 ms, QTc 487 ms. X-rays interpreted by me (1pt min.)? @ -Chest x-ray obtained, my interpretation identifies no localized consolidations or infiltrates. CT interpreted by me (1pt min.)? @ -CT scan of the brain obtained. My interpretation identifies no acute intracranial hemorrhage. CTA of the neck obtained. My interpretation identifies no carotid stenosis. U/S interpreted by me (1pt. min.)? @ -Not obtained What testing was considered but not performed? (CT, X-rays, U/S, labs)? Why? @ -None What meds were considered but not given? Why? @ -None Did you discuss the management of the patient with other professionals? @ -Yes, Cydney Mcclellan with [facility], who accepts the patient for admission Did you reconcile home meds? @ -Yes Was smoking cessation discussed for >3mins.? @ -No Was critical care preformed (if so, how long)? @ -No Were there social determinants of health that impacted care today? How? (Homelessness, low income, unemployed, alcoholism, drug addiction, transportation, low edu. Level, literacy, decrease access to med. care, longterm, rehab)? @ -No Was there de-escalation of care discussed even if they declined? (Discuss DNR or withdrawal of care, Hospice)? @ -No What co-morbidities impacted this encounter? (DM, HTN, Smoking, COPD, CAD, Cancer, CVA, Hep., AIDS, mental health diagnosis, sleep apnea, morbid obesity)? @ -CVA, HTN, HLD, bradycardia, bundle branch block, thyroid issue. Was patient admitted / discharged? @ -Admitted. Lab work demonstrates hyponatremia with a sodium of 127. She also has an AIDA with a creatinine of 1.5 and eGFR of 33, whereas her renal function is usually normal. BUN is 23. TSH is elevated at 6.8, however free T4 is within normal limits at 1.4. Urinalysis does demonstrate bacteria, however it is also grossly contaminated. Patient denies any urinary symptoms. Urine sent for culture. CT scan of the brain obtained revealing no acute process. We attempted a CTA of the head and neck, however there was a problem with the machine and they were only able to get a CTA of the neck. This revealed no acute findings. Chest x-ray also reveals no abnormalities. Orthostatics negative as well. She was given meclizine and 500 mL of IV fluids. Patient admitted to medicine for the hyponatremia and AIDA. Serum and urine osmolality ordered at the time of admission. Consult placed for nephrology. Case discussed with ED attending Dr. Nguyen. Undiagnosed new problem with uncertain prognosis? @ -None Drug Therapy requiring intensive monitoring for toxicity (Heparin, Nitro, Insulin, Cardizem)? @ -None Were any procedures done? @ -None Diagnosis/symptom? @ -Hyponatremia, AIDA, dizziness Acute, or Chronic, or Acute on Chronic? @ -Acute Uncomplicated (without systemic symptoms) or Complicated (systemic symptoms)? @ -Complicated Side effects of treatment? @ -None Exacerbation, Progression, or Severe Exacerbation] @ -Not applicable Poses a threat to life or bodily function? @ -It can be life-threatening if the hyponatremia and AIDA were to get worse. - Lab Data Result diagrams: 01/09/25 16:44 01/09/25 16:44 Lab Results 01/09/25 01/09/25 01/09/25 Range/Units 16:44 16:44 16:44 WBC 7.24 (4.50-10.00) 10*3/uL RBC 4.06 L (4.10-5.20) 10*6/uL Hgb 12.5 (12.0-15.0) g/dL Hct 35.1 L (37.2-46.3) % MCV 86.5 (80.0-97.0) fL MCH 30.8 (27.0-32.0) pg MCHC 35.6 (32.0-37.0) g/dL Plt Count 222 (140-440) 10*3/uL MPV 10.2 (9.5-12.2) fL Immature Gran % (Auto) 0.6 % Neutrophils % 66.1 % Lymphocytes % 20.9 % Monocytes % 10.8 % Eosinophils % 1.0 % Basophils % 0.6 % Immature Gran # 0.04 (0.00-0.04) 10*3/uL Neutrophils # 4.80 (1.80-7.70) 10*3/uL Lymphocytes # 1.51 (0.90-5.00) 10*3/uL Monocytes # 0.78 (0.20-1.00) 10*3/uL Eosinophils # 0.07 (0.04-0.35) 10*3/uL Basophils # 0.04 (0.00-0.10) 10*3/uL PT 9.9 L (10.0-12.5) sec INR 0.9 (<1.2) Sodium 127 L (137-145) mmol/L Potassium 4.2 (3.5-5.1) mmol/L Chloride 90 L (98-107) mmol/L Carbon Dioxide 26 (22-30) mmol/L Anion Gap 11 mmol/L BUN 23 H (7-17) mg/dL Creatinine 1.50 H (0.52-1.04) mg/dL Est GFR (CKD-EPI)AfAm 38 (>60 ml/min/1.73 sqM) Est GFR (CKD-EPI)NonAf 33 (>60 ml/min/1.73 sqM) Glucose 96 (74-99) mg/dL Calcium 9.3 (8.4-10.2) mg/dL Phosphorus (2.5-4.5) mg/dL Magnesium 1.9 (1.6-2.3) mg/dL Total Bilirubin 0.7 (0.2-1.3) mg/dL AST 35 (14-36) U/L ALT 25 (4-34) U/L Alkaline Phosphatase 138 H (38-126) U/L Troponin I (0.000-0.034) ng/mL NT-Pro-B Natriuret Pep pg/mL Total Protein 6.8 (6.3-8.2) g/dL Albumin 4.2 (3.5-5.0) g/dL TSH 6.830 H (0.465-4.680) mIU/L Free T4 1.44 (0.78-2.19) ng/dL Urine Color Urine Appearance (Clear) Urine pH (5.0-8.0) Ur Specific [place] (1.001-1.035) Urine Protein (Negative) Urine Glucose (UA) (Negative) Urine Ketones (Negative) Urine Blood (Negative) Urine Nitrite (Negative) Urine Bilirubin (Negative) Urine Urobilinogen (<2.0) mg/dL Ur Leukocyte Esterase (Negative) Urine RBC (0-5) /hpf Urine WBC (0-5) /hpf Ur Squamous Epith Cells (0-4) /hpf Urine Bacteria (None) /hpf Urine Mucus (None) /hpf 01/09/25 01/09/25 01/09/25 Range/Units 16:44 16:44 17:47 WBC (4.50-10.00) 10*3/uL RBC (4.10-5.20) 10*6/uL Hgb (12.0-15.0) g/dL Hct (37.2-46.3) % MCV (80.0-97.0) fL MCH (27.0-32.0) pg MCHC (32.0-37.0) g/dL Plt Count (140-440) 10*3/uL MPV (9.5-12.2) fL Immature Gran % (Auto) % Neutrophils % % Lymphocytes % % Monocytes % % Eosinophils % % Basophils % % Immature Gran # (0.00-0.04) 10*3/uL Neutrophils # (1.80-7.70) 10*3/uL Lymphocytes # (0.90-5.00) 10*3/uL Monocytes # (0.20-1.00) 10*3/uL Eosinophils # (0.04-0.35) 10*3/uL Basophils # (0.00-0.10) 10*3/uL PT (10.0-12.5) sec INR (<1.2) Sodium (137-145) mmol/L Potassium (3.5-5.1) mmol/L Chloride (98-107) mmol/L Carbon Dioxide (22-30) mmol/L Anion Gap mmol/L BUN (7-17) mg/dL Creatinine (0.52-1.04) mg/dL Est GFR (CKD-EPI)AfAm (>60 ml/min/1.73 sqM) Est GFR (CKD-EPI)NonAf (>60 ml/min/1.73 sqM) Glucose (74-99) mg/dL Calcium (8.4-10.2) mg/dL Phosphorus 3.8 (2.5-4.5) mg/dL Magnesium (1.6-2.3) mg/dL Total Bilirubin (0.2-1.3) mg/dL AST (14-36) U/L ALT (4-34) U/L Alkaline Phosphatase (38-126) U/L Troponin I <0.012 (0.000-0.034) ng/mL NT-Pro-B Natriuret Pep 137 pg/mL Total Protein (6.3-8.2) g/dL Albumin (3.5-5.0) g/dL TSH (0.465-4.680) mIU/L Free T4 (0.78-2.19) ng/dL Urine Color Colorless Urine Appearance Cloudy H (Clear) Urine pH 6.5 (5.0-8.0) Ur Specific [place] 1.015 (1.001-1.035) Urine Protein Negative (Negative) Urine Glucose (UA) Negative (Negative) Urine Ketones Negative (Negative) Urine Blood Negative (Negative) Urine Nitrite Negative (Negative) Urine Bilirubin Negative (Negative) Urine Urobilinogen <2.0 (<2.0) mg/dL Ur Leukocyte Esterase Moderate H (Negative) Urine RBC 5 (0-5) /hpf Urine WBC 32 H (0-5) /hpf Ur Squamous Epith Cells 20 H (0-4) /hpf Urine Bacteria Moderate H (None) /hpf Urine Mucus Rare H (None) /hpf - Radiology Data Radiology results: report reviewed, image reviewed Disposition Clinical Impression: Hyponatremia, Dizziness, AIDA (acute kidney injury) Disposition: ADMITTED IP TO THIS HOSP
[2025-01-09 16:56] LABS: Basophils # (A) 0.04 10*3/uL (0.00-0.10); Basophils % (A) 0.6 %; Eosinophils # (A) 0.07 10*3/uL (0.04-0.35); HCT 35.1 % (37.2-46.3); HGB 12.5 g/dL (12.0-15.0); Lymphocytes # (A) 1.51 10*3/uL (0.90-5.00); Lymphocytes % (A) 20.9 %; MCH 30.8 pg (27.0-32.0); MCHC 35.6 g/dL (32.0-37.0); MCV 86.5 fL (80.0-97.0); Mean Platelet Volume 10.2 fL (9.5-12.2); Monocytes # (A) 0.78 10*3/uL (0.20-1.00); Monocytes % (A) 10.8 %; Neutrophils % (A) 66.1 %; Platelet Count 222 10*3/uL (140-440); RBC 4.06 10*6/uL (4.10-5.20); RDW 12.7 % (11.5-14.5); WBC 7.24 10*3/uL (4.50-10.00)
[2025-01-09 17:06] LABS: INR 0.9 (<1.2); Prothrombin Time 9.9 sec (10.0-12.5)
[2025-01-09 17:14] LABS: ALT 25 U/L (4-34); AST 35 U/L (14-36); African American GFR (CKD) 38 (>60 ml/min/1.73 sqM); Albumin 4.2 g/dL (3.5-5.0); Alkaline Phosphatase 138 U/L (38-126); Anion Gap 11 mmol/L; Blood Urea Nitrogen 23 mg/dL (7-17); Calcium 9.3 mg/dL (8.4-10.2); Carbon Dioxide 26 mmol/L (22-30); Chloride 90 mmol/L (98-107); Glucose 96 mg/dL (74-99); Magnesium 1.9 mg/dL (1.6-2.3); Non-African American GFR(CKD) 33 (>60 ml/min/1.73 sqM); Potassium 4.2 mmol/L (3.5-5.1); Sodium 127 mmol/L (137-145); Total Bilirubin 0.7 mg/dL (0.2-1.3); Total Protein 6.8 g/dL (6.3-8.2)
--- NOTE | 2025-01-09 17:55 | CT ---
EXAMINATION TYPE: CT brain wo con DATE OF EXAM: 01/09/2025 5:49 PM COMPARISON: 09/22/2023 CLINICAL INDICATION: Female, 79 years old with history of Dizziness, dizziness TECHNIQUE: CT of the brain is performed utilizing 3 mm thick sections through the posterior fossa and 3 mm thick sections through the remaining calvarium. Study is performed within 24 hours of arrival to the hospital. Contrast used: mL of , (none if empty) CT DLP: 1060 mGycm, Automated exposure control for dose reduction was used. FINDINGS: No abnormal hyperdensity is present to suggest an acute intracranial hemorrhage. No mass lesion is evident. No acute infarcts are evident. Virchow-Adebayo space is within the right posterior basal ganglia, prese nt previously Ventricles and sulci are appropriate for the patient age. Paranasal sinuses and mastoid air cells within the [id number] are clear. IMPRESSION: 1. No acute intracranial process. Follow up MRI can be performed as clinically indicated. [facility], , 01/09/2025 5:52 PM
[2025-01-09 18:08] LABS: Phosphorus 3.8 mg/dL (2.5-4.5)
[2025-01-09 18:14] LABS: Appearance,Urine Cloudy (Clear); Bacteria,Urine Moderate /hpf; Bilirubin,Urine Negative (Negative); Blood,Urine Negative (Negative); Color,Urine Colorless; Glucose,Urine (UA) Negative (Negative); Ketones,Urine Negative (Negative); Leukocyte Esterase,Urine Moderate (Negative); Mucus,Urine Rare /hpf; Nitrite,Urine Negative (Negative); PH, Urine 6.5 (5.0-8.0); Protein,Urine Negative (Negative); RBC,Urine 5 /hpf (0-5); Specific Gravity,Urine 1.015 (1.001-1.035); Squamous Epithelial Cell,Urine 20 /hpf (0-4); Urobilinogen,Urine <2.0 mg/dL (<2.0); WBC,Urine 32 /hpf (0-5)
--- NOTE | 2025-01-09 18:38 | CT ---
EXAMINATION TYPE: CT angio neck DATE OF EXAM: 01/09/2025 5:54 PM COMPARISON: None. CLINICAL INDICATION: Female, 79 years old with history of Dizziness, dizziness TECHNIQUE: CTA scan is performed with axial images are obtained, coronal and sagittal reformatted stephania ges are reviewed. MIP images created on a separate workstation and submitted for review. 3-D reconstr ucted images are created on an independent workstation and reviewed. Source images are reviewed. HASMUKH CET criteria was used in interpretation of this exam? Contrast used:65 ml mL of Isovue 370 with IV Contrast, (none if empty) Oral contrast used: (none if empty) CT DLP: 398.3 mGycm, Automated exposure control for dose reduction was used. FINDINGS: Carotid/Vascular Structures: There is a 3 vessel arch. Common carotid arteries bifurcate into internal and external carotid arteries without significant chaka w limiting stenosis. Vertebral arteries are codominant. Internal carotid arteries and vertebral arteries are patent to the skull base. IMPRESSION: 1. No flow-limiting stenosis bilateral carotid bifurcations. [facility], , 01/09/2025 6:36 PM
--- NOTE | 2025-01-09 19:01 | XR ---
EXAMINATION TYPE: XR chest 2V DATE OF EXAM: 01/09/2025 6:25 PM COMPARISON: 10/07/2024 CLINICAL INDICATION: Female, 79 years old with history of Dizziness, weakness, TECHNIQUE: XR chest 2V view(s) obtained. FINDINGS: The heart size is normal. The pulmonary vasculature is normal. The lungs are clear. IMPRESSION: 1. No acute pulmonary process. [facility], , 01/09/2025 6:58 PM
[2025-01-09] MEDS ORDERED: NALOXONE 0.4 MG/ML 1 ML VIAL IV PRN (19:08)
[2025-01-09] MEDS ORDERED: ONDANSETRON 4 MG/2 ML VIAL IVP PRN (19:08)
[2025-01-09] MEDS ORDERED: NITROGLYCERIN SL TABS 0.4 MG TAB SUBLINGUAL PRN (19:09)
[2025-01-09] MEDS: SODIUM CHLORIDE 0.9% 1,000 ML IV SCH (19:14)
[2025-01-09 19:35] LABS: T4, Free (Free Thyroxine) 1.44 ng/dL (0.78-2.19)
[2025-01-09] MEDS: carBAMazepine 200 MG TAB PO SCH (20:20)
[2025-01-09] MEDS: ATORVASTATIN 80 MG TAB PO SCH (20:24)
[2025-01-09] MEDS: GABAPENTIN 300 MG CAP PO SCH (20:24)
[2025-01-09] MEDS: lamoTRIgine 25 MG TAB PO SCH (20:24)
[2025-01-09] MEDS: LOSARTAN 50 MG TAB PO SCH (20:24)
[2025-01-09] MEDS: ACETAMINOPHEN TAB 325 MG TAB PO PRN (23:05)
[2025-01-10] MEDS: LEVOTHYROXINE 88 MCG TAB PO SCH (06:29)
[2025-01-10] MEDS: amLODIPine 5 MG TAB PO SCH (09:15)
[2025-01-10] MEDS: ASPIRIN 81 MG PO SCH (09:15)
[2025-01-10] MEDS: PANTOPRAZOLE 40 MG/10 ML VIAL IV SCH (09:22)
[2025-01-10] MEDS: CHOLECALCIFEROL 25 MCG (1000 IU) TABLET PO SCH (09:26)
[2025-01-10] MEDS: CHLORTHALIDONE 25 MG TAB PO SCH (10:36)
[2025-01-10 11:59] LABS: African American GFR (CKD) 73 (>60 ml/min/1.73 sqM); Anion Gap 5 mmol/L; Blood Urea Nitrogen 15 mg/dL (7-17); Calcium 8.9 mg/dL (8.4-10.2); Carbon Dioxide 31 mmol/L (22-30); Chloride 92 mmol/L (98-107); Glucose 106 mg/dL (74-99); Non-African American GFR(CKD) 64 (>60 ml/min/1.73 sqM); Potassium 4.7 mmol/L (3.5-5.1); Sodium 128 mmol/L (137-145)
--- NOTE | 2025-01-10 13:21 | P.NPCON ---
History of Present Illness - Reason for Consult hyponatremia - History of Present Illness Patient is a 79-year-old female who is admitted to the hospital with complaints of dizziness which started yesterday. Dizziness gets worse on standing and walking. Patient also felt weak. Blood pressure was not significantly low. 116/70 mmHg charted as lowest blood pressure. Sodium was noted to be 127 and it improved to 128 today. Maintained on IV fluids. No history of diarrhea, fever or chills. Patient states that she was started on a new medication by cardiology about 3 weeks ago. She did have nausea with the medication and she subsequently decreased it to once a day. Patient is unsure of the name of the medication. Chlorthalidone noted on her home med list. Past Medical History Past Medical History: Cancer, CVA/TIA, Hyperlipidemia, Hypertension, Neurologic Disorder, Osteoarthritis (OA), Supraventricular Tachycardia (SVT), Thyroid Disorder Additional Past Medical History / Comment(s): LBBB; TRIGEMINAL NEURALGIA- hospitalized in October for acute episode @[facility], hx. THYROID cancer, TIA in 2023 History of Any Multi-Drug Resistant Organisms: None Reported Past Surgical History: Cardiac Ablation, Heart Catheterization, Hysterectomy, Joint Replacement, Orthopedic Surgery Additional Past Surgical History / Comment(s): RT knee arthroscopy; Gamma KNIFE TX TRIGEMINAL NEURALGIA; NASAL PROC; I&D FACIAL MOLE, thyroidectomy, colonoscopy, left knee replaced, rhizotomy of trigeminal nerve @[facility] October 2017, loop recorder, bilat cataract removal Past Anesthesia/Blood Transfusion Reactions: Motion Sickness Additional Past Anesthesia/Blood Transfusion Reaction / Comment(s): VERY CLAUSTROPHOBIC WITH ANYTHING CLOSE TO FACE INCL O2 TUBING Past Psychological History: No Psychological Hx Reported Additional Psychological History / Comment(s): VERY CLAUSTROPhOBIC Smoking Status: Never smoker Past Alcohol Use History: None Reported Additional Past Alcohol Use History / Comment(s): Patient is a lifelong nonsmoker. She denies any medical marijuana, marijuana, street drug or alcohol use. Past Drug Use History: None Reported - Past Family History Father Family Medical History: Cancer Additional Family Medical History / Comment(s): Father at age 79 from leukemia Son(s) Additional Family Medical History / Comment(s): Patient has 2 sons and one has osteoarthritis status post bilateral hip replacements. Daughter(s) Additional Family Medical History / Comment(s): Patient has one daughter with history of Arnold-Chiari. Mother Family Medical History: Cancer Additional Family Medical History / Comment(s): Mother at age 71 from lung cancer Father Brother(s) Family Medical History: Cancer Additional Family Medical History / Comment(s): Patient has one brother with history of prostate cancer, stroke, diabetes, hypertension. Sister(s) Family Medical History: Cancer Additional Family Medical History / Comment(s): BREAST CANCER Medications and Allergies Home Medications Medication Instructions Recorded Confirmed Type Levothyroxine Sodium [Synthroid] 88 mcg PO DAILY 05/16/15 01/09/25 History amLODIPine [Norvasc] 5 mg PO DAILY 03/08/17 01/09/25 History lamoTRIgine [LaMICtal] 75 mg PO BID 09/22/23 01/09/25 History Atorvastatin [Lipitor] 80 mg PO HS 02/10/24 01/09/25 History Gabapentin [Neurontin] 300 mg PO BID 10/07/24 01/09/25 History carBAMazepine [TEGretol] 400 mg PO BID 10/07/24 01/09/25 History Aspirin 81 mg PO DAILY #30 tab 10/09/24 01/09/25 Rx Nitroglycerin Sl Tabs [Nitrostat] 0.4 mg SUBLINGUAL Q5M PRN #25 tab 10/09/24 01/09/25 Rx Chlorthalidone [Hygroton] 25 mg PO DAILY 01/09/25 01/09/25 History Cholecalciferol (Vitamin D3) 50 mcg PO DAILY 01/09/25 01/09/25 History [Vitamin D3 (50 Mcg = 2000 Iu)] Losartan Potassium 50 mg PO BID 01/09/25 01/09/25 History Allergies Allergy/AdvReac Type Severity Reaction Status Date / Time codeine Allergy Nausea & Verified 01/09/25 18:46 Vomiting, RASH, SWELLING hydrocodone bitartrate Allergy Nausea & Verified 01/09/25 18:46 [From Vicodin] Vomiting, RASH, SWELLING morphine Allergy RASH, Verified 01/09/25 18:46 SWELLING BANDAID Allergy Rash/Hives Uncoded 01/09/25 18:46 Physical Exam Vitals: Vital Signs Temp Pulse Pulse Resp BP BP BP 01/10/25 09:15 16 01/10/25 07:45 97.5 F L 55 L 16 01/10/25 02:00 97.7 F 54 L 15 01/09/25 23:28 97.9 F 60 16 142/81 01/09/25 22:51 98.7 F 60 16 123/64 01/09/25 20:18 67 16 122/60 01/09/25 18:39 135/66 129/61 01/09/25 16:12 97.5 F L 57 L 20 116/70 BP Pulse Ox 01/10/25 09:15 01/10/25 07:45 145/79 99 01/10/25 02:00 116/68 97 01/09/25 23:28 99 01/09/25 22:51 99 01/09/25 20:18 98 01/09/25 18:39 138/70 01/09/25 16:12 100 Intake and Output 01/09/25 01/10/25 01/10/25 22:59 06:59 14:59 Intake Total 118 Balance 118 Intake: Oral 118 Other: Voiding Method Toilet Toilet # Voids 1 2 Weight 80.739 kg Patient is awake, comfortable, no acute distress Examination of the heart S1 and S2 Examination of the lungs bilateral breath sounds are heard Abdomen is soft nontender Examination of lower extremity shows trace edema with chronic skin changes 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 Hyponatremia, hypovolemic and improved with IV hydration. Chlorthalidone noted on home med list. This will be held. Patient is also maintained on Tegretol which can be associated with hyponatremia however review of previous records does not reveal any low sodium readings. 2. Hypertension, controlled 3. Trigeminal neuralgia maintained on Neurontin and Tegretol Plan: DC chlorthalidone Continue with IV fluids Repeat labs in a.m. May continue with Tegretol for now Encouraged increased oral intake particularly protein. Thank you for the consultation. We will continue to follow the patient with you during her hospitalization.
--- NOTE | 2025-01-10 13:47 | P.HPIM ---
History of Present Illness H&P Date: 01/10/25 This is a pleasant 79-year-old female with medical history significant for thyroid cancer with thyroidectomy, hypertension, hyperlipidemia, SVT, TIA, trigeminal neuralgia, coronary artery disease. Patient comes into the hospital with a 1 day complaint of feeling dizzy. Patient reports that she has been moving and under a lot of stress recently. She began to feel dizzy yesterday while she was packing her house states that she creased her oral intake however as the day progressed she became more weak and was unable to make it into the garage and down into her basement. Her dizziness was worse with ambulation and also bending over. She came to the hospital for further evaluation. She is cu rrently not feeling dizzy at this time. She does not report any chest pain palpitations. No shortness of breath no fever or chills or recent illness. She did not fall or lose consciousness. Patient was admitted back in October of 2024 underwent cardiac catheterization with recommendations to optimized medical therapy. She has followed up with her director of reimbursement since and they adjusted her BP medications as she was hypertensive up in the 190s systolic. Patient states her director of reimbursement is planning on inserting a pacemaker one her BP is better controlled. EKG on admission reveals sinus bradycardia with a first-degree AV block. Heart rate of 58. Brain CT reveals no acute intracranial process. Neck CTA reveals no flow-limiting stenosis in the bilateral carotid bifurcations. Chest x-ray reveals no acute pulmonary process. Blood work reveals a white blood cell count of 7.24, hemoglobin 12.5, sodium of 127, BUN of 23 creatinine of 1.50 potassium of 4.2, troponin level negative proBNP 137. TSH 6.830 with a free T41.44. Urinalysis shows cloudy urine with moderate leukocyte esterase moderate bacteria however patient denies any dysuria urinary urgency frequency or burning. Patient was given a 1 L fluid bolus and started on normal saline at 75 mL/h. Her chlorthalidone has been discontinued. She did receive a dose of Antivert yesterday as well. Admitted to the hospital in observation with a consult placed to nephrology. REVIEW OF SYSTEMS: CONSTITUTIONAL: No fever, no malaise, no fatigue. HEENT: No recent visual problems or hearing problems. Denied any sore throat. CARDIOVASCULAR: No chest pain, orthopnea, PND, no palpitations, no syncope. PULMONARY: No shortness of breath, no cough, no hemoptysis. GASTROINTESTINAL: No diarrhea, no nausea, no vomiting, no abdominal pain. NEUROLOGICAL: No headaches, no weakness, no numbness. HEMATOLOGICAL: Denies any bleeding or petechiae. GENITOURINARY: Denies any burning micturition, frequency, or urgency. MUSCULOSKELETAL/RHEUMATOLOGICAL: Denies any joint pain, swelling, or any muscle pain. ENDOCRINE: Denies any polyuria or polydipsia. The rest of the 14-point review of systems is negative. PHYSICAL EXAMINATION: GENERAL: The patient is alert and oriented x3, not in any acute distress. Well developed, well nourished. HEENT: Pupils are round and equally reacting to light. EOMI. No scleral icterus. No conjunctival pallor. Normocephalic, atraumatic. No pharyngeal erythema. No thyromegaly. CARDIOVASCULAR: S1 and S2 present. No murmurs, rubs, or gallops. PULMONARY: Chest is clear to auscultation, no wheezing or crackles. ABDOMEN: Soft, nontender, nondistended, normoactive bowel sounds. No palpable organomegaly. MUSCULOSKELETAL: No joint swelling or deformity. EXTREMITIES: No cyanosis, clubbing, or pedal edema. NEUROLOGICAL: Gross neurological examination did not reveal any focal deficits. SKIN: No rashes. Assessment Dizziness likely because of hypovolemia Hypovolemic hyponatremia improved with normal saline History of trigeminal neuralgia; maintained on carbamazepine which can also cause hyponatremia History of stroke History of thyroid cancer with thyroidectomy Hypertension with recent medication changes; med review shows patient was started on chlorthalidone on 12/19/2024 Hyperlipidemia SVT in the past Coronary artery disease medically managed GI prophylaxis DVT prophylaxis Full code Plan Continue normal saline at 75 mL/h Nephrology consultation Hold chlorthalidone and would recommend to DC on discharge. Resume all other home medications Repeat BMP in the AM Patient admitted in observation and pending improvement in sodium level possible DC home in the next 24 hours The impression and plan of care has been dictated by Cydney Mcclellan Nurse Practitioner as directed. Dr. Aditi MD I have performed a history and physical examination and medical decision making of this patient, discussed the same with the dictator, and agree with the dictators assessment and plan as written, documented as a scribe. Based on total visit time, I have performed more than 50% of this visit. Past Medical History Past Medical History: Cancer, CVA/TIA, Hyperlipidemia, Hypertension, Neurologic Disorder, Osteoarthritis (OA), Supraventricular Tachycardia (SVT), Thyroid Disorder Additional Past Medical History / Comment(s): LBBB; TRIGEMINAL NEURALGIA- hospitalized in October for acute episode @[facility], hx. THYROID cancer, TIA in 2023 History of Any Multi-Drug Resistant Organisms: None Reported Past Surgical History: Cardiac Ablation, Heart Catheterization, Hysterectomy, Joint Replacement, Orthopedic Surgery Additional Past Surgical History / Comment(s): RT knee arthroscopy; Gamma KNIFE TX TRIGEMINAL NEURALGIA; NASAL PROC; I&D FACIAL MOLE, thyroidectomy, colonoscopy, left knee replaced, rhizotomy of trigeminal nerve @[facility] October 2017, loop recorder, bilat cataract removal Past Anesthesia/Blood Transfusion Reactions: Motion Sickness Additional Past Anesthesia/Blood Transfusion Reaction / Comment(s): VERY CLAUSTROPHOBIC WITH ANYTHING CLOSE TO FACE INCL O2 TUBING Past Psychological History: No Psychological Hx Reported Additional Psychological History / Comment(s): VERY CLAUSTROPhOBIC Smoking Status: Never smoker Past Alcohol Use History: None Reported Additional Past Alcohol Use History / Comment(s): Patient is a lifelong nonsmoker. She denies any medical marijuana, marijuana, street drug or alcohol use. Past Drug Use History: None Reported - Past Family History Father Family Medical History: Cancer Additional Family Medical History / Comment(s): Father at age 79 from leukemia Son(s) Additional Family Medical History / Comment(s): Patient has 2 sons and one has osteoarthritis status post bilateral hip replacements. Daughter(s) Additional Family Medical History / Comment(s): Patient has one daughter with history of Arnold-Chiari. Mother Family Medical History: Cancer Additional Family Medical History / Comment(s): Mother at age 71 from lung cancer Father Brother(s) Family Medical History: Cancer Additional Family Medical History / Comment(s): Patient has one brother with history of prostate cancer, stroke, diabetes, hypertension. Sister(s) Family Medical History: Cancer Additional Family Medical History / Comment(s): BREAST CANCER Medications and Allergies Home Medications Medication Instructions Recorded Confirmed Type Levothyroxine Sodium [Synthroid] 88 mcg PO DAILY 05/16/15 01/09/25 History amLODIPine [Norvasc] 5 mg PO DAILY 03/08/17 01/09/25 History lamoTRIgine [LaMICtal] 75 mg PO BID 09/22/23 01/09/25 History Atorvastatin [Lipitor] 80 mg PO HS 02/10/24 01/09/25 History Gabapentin [Neurontin] 300 mg PO BID 10/07/24 01/09/25 History carBAMazepine [TEGretol] 400 mg PO BID 10/07/24 01/09/25 History Aspirin 81 mg PO DAILY #30 tab 10/09/24 01/09/25 Rx Nitroglycerin Sl Tabs [Nitrostat] 0.4 mg SUBLINGUAL Q5M PRN #25 tab 10/09/24 01/09/25 Rx Chlorthalidone [Hygroton] 25 mg PO DAILY 01/09/25 01/09/25 History Cholecalciferol (Vitamin D3) 50 mcg PO DAILY 01/09/25 01/09/25 History [Vitamin D3 (50 Mcg = 2000 Iu)] Losartan Potassium 50 mg PO BID 01/09/25 01/09/25 History Allergies Allergy/AdvReac Type Severity Reaction Status Date / Time codeine Allergy Nausea & Verified 01/09/25 18:46 Vomiting, RASH, SWELLING hydrocodone bitartrate Allergy Nausea & Verified 01/09/25 18:46 [From Vicodin] Vomiting, RASH, SWELLING morphine Allergy RASH, Verified 01/09/25 18:46 SWELLING BANDAID Allergy Rash/Hives Uncoded 01/09/25 18:46 Physical Exam Vitals: Vital Signs Temp Pulse Pulse Resp BP BP BP 01/10/25 09:15 16 01/10/25 07:45 97.5 F L 55 L 16 01/10/25 02:00 97.7 F 54 L 15 01/09/25 23:28 97.9 F 60 16 142/81 01/09/25 22:51 98.7 F 60 16 123/64 01/09/25 20:18 67 16 122/60 01/09/25 18:39 135/66 129/61 01/09/25 16:12 97.5 F L 57 L 20 116/70 BP Pulse Ox 01/10/25 09:15 01/10/25 07:45 145/79 99 01/10/25 02:00 116/68 97 01/09/25 23:28 99 01/09/25 22:51 99 01/09/25 20:18 98 01/09/25 18:39 138/70 01/09/25 16:12 100 Intake and Output 01/09/25 01/10/25 01/10/25 22:59 06:59 14:59 Intake Total 118 Balance 118 Intake: Oral 118 Other: Voiding Method Toilet Toilet # Voids 1 2 Weight 80.739 kg Results CBC & Chem 7: 01/09/25 16:44 01/10/25 11:06 Labs: Abnormal Lab Results - Last 24 Hours (Table) 01/09/25 01/09/25 01/09/25 Range/Units 16:44 16:44 16:44 RBC 4.06 L (4.10-5.20) 10*6/uL Hct 35.1 L (37.2-46.3) % PT 9.9 L (10.0-12.5) sec Sodium 127 L (137-145) mmol/L Chloride 90 L (98-107) mmol/L Carbon Dioxide (22-30) mmol/L BUN 23 H (7-17) mg/dL Creatinine 1.50 H (0.52-1.04) mg/dL Glucose (74-99) mg/dL Alkaline Phosphatase 138 H (38-126) U/L TSH 6.830 H (0.465-4.680) mIU/L Urine Appearance (Clear) Ur Leukocyte Esterase (Negative) Urine WBC (0-5) /hpf Ur Squamous Epith Cells (0-4) /hpf Urine Bacteria (None) /hpf Urine Mucus (None) /hpf Urine Osmolality (400-1100) mOsm/kg 01/09/25 01/09/25 01/10/25 Range/Units 17:47 17:47 11:06 RBC (4.10-5.20) 10*6/uL Hct (37.2-46.3) % PT (10.0-12.5) sec Sodium 128 L (137-145) mmol/L Chloride 92 L (98-107) mmol/L Carbon Dioxide 31 H (22-30) mmol/L BUN (7-17) mg/dL Creatinine (0.52-1.04) mg/dL Glucose 106 H (74-99) mg/dL Alkaline Phosphatase (38-126) U/L TSH (0.465-4.680) mIU/L Urine Appearance Cloudy H (Clear) Ur Leukocyte Esterase Moderate H (Negative) Urine WBC 32 H (0-5) /hpf Ur Squamous Epith Cells 20 H (0-4) /hpf Urine Bacteria Moderate H (None) /hpf Urine Mucus Rare H (None) /hpf Urine Osmolality 261 L (400-1100) mOsm/kg Thrombosis Risk Factor Assmnt - Choose All That Apply Any of the Below Risk Factors Present?: Yes Each Factor Represents 1 point: Obesity (BMI >25) Other Risk Factors: Yes Each Risk Factor Represents 3 Points: Age 75 years or older Thrombosis Risk Factor Assessment Total Risk Factor Score: 4 Thrombosis Risk Factor Assessment Level: Moderate Risk Assessment and Plan Time with Patient: Less than 30
[2025-01-11 07:49] VITALS: RESP 16
[2025-01-11 12:18] LABS: African American GFR (CKD) 82 (>60 ml/min/1.73 sqM); Anion Gap 2 mmol/L; Blood Urea Nitrogen 14 mg/dL (7-17); Calcium 8.4 mg/dL (8.4-10.2); Carbon Dioxide 30 mmol/L (22-30); Chloride 96 mmol/L (98-107); Glucose 108 mg/dL (74-99); Non-African American GFR(CKD) 71 (>60 ml/min/1.73 sqM); Potassium 4.2 mmol/L (3.5-5.1); Sodium 128 mmol/L (137-145)
[2025-01-11 14:32] VITALS: BP 108/55; PULSE 53; TEMP 98.2
--- NOTE | 2025-01-11 17:07 | P.PN ---
Subjective Patient is seen for follow-up for hyponatremia. Maintained on IV fluids Serum sodium was 128 yesterday. Labs are not back from today. Patient denies any significant complaints. Objective - Vital Signs Vital signs: Vital Signs Temp 98.2 F 01/11/25 14:31 Pulse 53 L 01/11/25 14:31 Resp 16 01/11/25 14:31 BP 108/55 01/11/25 14:31 Pulse Ox 98 01/11/25 14:31 FiO2 Intake & Output 01/10/25 01/11/25 01/11/25 18:59 06:59 18:59 Intake Total 238 221 Balance 238 221 Intake: Oral 238 221 Other: Voiding Method Toilet Toilet # Voids 2 1 4 - Exam Patient is awake, comfortable, no acute distress Examination of the heart S1 and S2 Examination of the lungs bilateral breath sounds are heard Abdomen is soft nontender Examination of lower extremity shows trace edema with chronic skin changes 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 Hyponatremia, hypovolemic and improved with IV hydration. Chlorthalidone noted on home med list. This will be held. Patient is also maintained on Tegretol which can be associated with hyponatremia however review of previous records does not reveal any low sodium readings. 2. Hypertension, controlled 3. Trigeminal neuralgia maintained on Neurontin and Tegretol Plan: DC chlorthalidone Continue with IV fluids Follow-up on labs from today May continue with Tegretol for now
--- NOTE | 2025-01-13 23:33 | P.DS ---
Providers Date of admission: 01/09/25 18:51 Expected date of discharge: 01/11/25 Attending physician: Marcus Watkins Consults: 01/09/25 19:08 Consult Physician Urgent Consulting Provider: Justa Oconnell Consult Reason/Comments: Hyponatremia, AIDA Do you want consulting provider notified?: Yes Primary care physician: Ramone Cobos Hospital Course: Final diagnosis Dizziness likely because of hypovolemia Hypovolemic hyponatremia improved with normal saline History of trigeminal neuralgia; maintained on carbamazepine which can also cause hyponatremia History of stroke History of thyroid cancer with thyroidectomy Hypertension with recent medication changes; med review shows patient was started on chlorthalidone on 12/19/2024 Hyperlipidemia SVT in the past Coronary artery disease medically managed GI prophylaxis DVT prophylaxis Full code Discharge disposition Patient is being discharged in a stable condition with guarded prognosis to home. Patient will follow-up with Dr. Cobos in the outpatient setting upon discharge. Patient is to continue with current medications and close outpatient follow-up with nephrology and cardiology as scheduled. Repeat labs to monitor kidney functions and electrolytes in the outpatient setting. Total time taken is greater than 35 minutes. Hospital course This is a 79-year-old female who was recently in noted hypovolemic hyponatremia started on gentle hydration as patient clinically appeared slightly dehydrated. Nephrology following making adjustments to medications recommending continuing to hold chlorthalidone and recommend repeat labs in the next few days with close outpatient follow-up in the next 1 week. Patient reports to feeling significantly improved and would like to go home. Please refer to consultation notes for further HPI. Currently no reports of chest pain, shortness of breath, or palpitations. Patient is afebrile. No reports of nausea or vomiting and patient is tolerating diet. Patient will be discharged today. Physical exam: Gen: This is a 79-year-old female who is awake, alert and oriented x 3, well- developed, elderly appearing, obese HEENT: Head is atraumatic, normocephalic. Pupils equal, round. Sclerae is anicteric. NECK: Supple. No JVD. No lymphadenopathy. No thyromegaly. LUNGS: Clear to auscultation. No wheezes or rhonchi. No intercostal retractions. HEART: Regular rate and rhythm. No murmur. ABDOMEN: Soft. Bowel sounds are present. No masses. No tenderness. EXTREMITIES: No pedal edema. No calf tenderness. NEUROLOGICAL: Patient is awake, alert and oriented x3. Cranial nerves 2 through 12 are grossly intact. Please refer to medication reconciliation sheet for a list of medications. The impression and plan of care has been dictated by Thelma Rayo, Nurse Practitioner as directed. Dr. Marvin MD I have performed a history and examination and MDM of this patient, discussed the same with the dictator, and agree with the dictator's assessment and plan as written ,documented as a scribe. Based on total visit time, I have performed more than 50% of the visit. Patient Condition at Discharge: Fair Plan - Discharge Summary Discharge Rx Participant: No New Discharge Prescriptions: New Acetaminophen Tab [Tylenol] 650 mg PO Q6HR PRN tab PRN Reason: Mild Pain Or Fever > 100.5 Continue Levothyroxine Sodium [Synthroid] 88 mcg PO DAILY amLODIPine [Norvasc] 5 mg PO DAILY Atorvastatin [Lipitor] 80 mg PO HS carBAMazepine [TEGretol] 400 mg PO BID Aspirin 81 mg PO DAILY #30 tab Nitroglycerin Sl Tabs [Nitrostat] 0.4 mg SUBLINGUAL Q5M PRN #25 tab PRN Reason: Chest Pain lamoTRIgine [LaMICtal] 75 mg PO BID Gabapentin [Neurontin] 300 mg PO BID Losartan Potassium 50 mg PO BID Cholecalciferol (Vitamin D3) [Vitamin D3 (50 Mcg = 2000 Iu)] 50 mcg PO DAILY Discontinued Chlorthalidone [Hygroton] 25 mg PO DAILY Discharge Medication List Levothyroxine Sodium [Synthroid] 88 mcg PO DAILY 05/16/15 [History] amLODIPine [Norvasc] 5 mg PO DAILY 03/08/17 [History] lamoTRIgine [LaMICtal] 75 mg PO BID 09/22/23 [History] Atorvastatin [Lipitor] 80 mg PO HS 02/10/24 [History] Gabapentin [Neurontin] 300 mg PO BID 10/07/24 [History] carBAMazepine [TEGretol] 400 mg PO BID 10/07/24 [History] Aspirin 81 mg PO DAILY #30 tab 10/09/24 [Rx] Nitroglycerin Sl Tabs [Nitrostat] 0.4 mg SUBLINGUAL Q5M PRN #25 tab 10/09/24 [Rx] Cholecalciferol (Vitamin D3) [Vitamin D3 (50 Mcg = 2000 Iu)] 50 mcg PO DAILY 01/09/25 [History] Losartan Potassium 50 mg PO BID 01/09/25 [History] Acetaminophen Tab [Tylenol] 650 mg PO Q6HR PRN tab 01/11/25 [Rx] Follow up Appointment(s)/Referral(s): Anastacio Evans MD [STAFF PHYSICIAN] - 1 Week (Office will call with follow up appointment date and time.) Justa Oconnell MD [STAFF PHYSICIAN] - 1 Week Ramone Cobos [Primary Care Provider] - 1-2 days Ambulatory/Diagnostic Orders: Basic Metabolic Panel [LAB.AMB] Time Frame: 3 Days, Location: None Selected Patient Instructions/Handouts: Acute Kidney Injury (DC), Acute Kidney Injury (GEN), Hyponatremia (DC), Hyponatremia (GEN), Dizziness (ED), Dizziness (GEN) Activity/Diet/Wound Care/Special Instructions: Activity limited until follow-up Follow-up with cardiology outpatient in 1 to 2 weeks to discuss medication adjustments Continue holding chlorthalidone for now until cardiology follow-up Repeat labs in the next 2 to 3 days to monitor kidney functions and electrolytes Follow-up with nephrology outpatient in 1 to 2 weeks Follow-up primary care provider on discharge Continue monitoring blood pressure once daily and keep a diary of all readings along with any associated symptoms he may be experiencing to discuss with cardiology and primary care provider Discussed with cardiology about any fluid restrictions, medication adjustments, or diet adjustments Discharge Disposition: HOME SELF-CARE
== END 2025-01-11 15:36 | disposition home or self-care (01) ==
LOC: EC 15:56 → 6NMEDSUR 18:51
PROVIDERS: ADMIT Hospitalist; ATTEND Hospitalist
DX: R42 Dizziness and giddiness (principal); E87.1 Hypo-osmolality and hyponatremia; N17.9 Acute kidney failure, unspecified; I10 Essential (primary) hypertension; E78.5 Hyperlipidemia, unspecified; E89.0 Postprocedural hypothyroidism; G50.0 Trigeminal neuralgia; I25.10 Atherosclerotic heart disease of native coronary artery without angina pectoris; Z85.850 Personal history of malignant neoplasm of thyroid; Z86.73 Personal history of transient ischemic attack (TIA), and cerebral infarction without residual deficits; Z79.82 Long term (current) use of aspirin; Z79.890 Hormone replacement therapy; Z79.899 Other long term (current) drug therapy; Z88.5 Allergy status to narcotic agent
CPT/HCPCS: 96376; 96374; 96361; 99285; 36415; 93005; 84439; 83930; 83880; 80053; 80048 ×2; 84443; 83735; 84100; 84484; 85025; 85610; 81001; 83935; 87086; 71046; 70450; 70498; G0378 ×3; Q9967; J2470 ×2

== ENCOUNTER → 2025-01-14 | Outpatient (CLI) | payer MEDICARE ==
[2025-01-14 21:57] LABS: BUN/Creat Ratio 12.77 Ratio (12.00-20.00); Blood Urea Nitrogen 16.6 mg/dL (9.0-27.0); Carbon Dioxide 24.8 mmol/L (21.6-31.8); Chloride 95 mmol/L (96-109); Glucose 100 mg/dL (70-110); Magnesium 1.9 mg/dL (1.5-2.4); Potassium 4.9 mmol/L (3.5-5.5); Sodium 132 mmol/L (135-145)
== END | disposition home or self-care (01) ==
LOC: LABWHC1 12:32
PROVIDERS: ATTEND Registered Nurse
DX: E87.1 Hypo-osmolality and hyponatremia (principal)
CPT/HCPCS: 36415; 80048; 83735

== ENCOUNTER 2025-02-03 01:50 | Emergency (ER) | payer MEDICARE ==
[2025-02-03 02:01] VITALS: RESP 18
[2025-02-03] MEDS: KETOROLAC 15 MG/ML 1 ML VIAL IVP STA ×2 (03:28→04:38)
[2025-02-03] MEDS: methylPREDNISolone SOD SUCCI 125 MG/2 ML VIAL IV STA (03:29)
[2025-02-03] MEDS: HYDROmorphone 0.5 MG/0.5 ML SYRINGE IVP STA ×2 (03:29→04:38)
[2025-02-03] MEDS: SODIUM CHLORIDE 0.9% 1,000 ML IV STA (03:32)
--- NOTE | 2025-02-03 03:40 | ED ---
Headache HPI - General Chief Complaint: Headache Stated Complaint: Nerve Pain Time Seen by Provider: 02/03/25 02:04 Source: patient, family, RN notes reviewed Mode of arrival: EMS Limitations: no limitations - History of Present Illness Initial Comments: This is a 79-year-old female with history including TIA, thyroid CA and trigeminal neuralgia presenting with for right facial pain starting x 3 days ago on . Patient states the pain has been progressing over the past several days and is now unable to take her oral medications due to inability to open her mouth attributed to the pain. Patient was previously prescribed carbamazepine, Gabapentin and Lamictal. Patient states she has severe pain with any attempted movement of face or head. Denies weakness or numbness in lower extremities. Onset/Timin -: days(s) Location: right, facial Severity scale (1-10): 10 Consistency: constant Improves With: nothing Worsens With: movement of head/neck Context: occurred at rest Associated Symptoms: neck stiffness, photophobia - Related Data Home Medications Medication Instructions Recorded Confirmed Levothyroxine Sodium [Synthroid] 88 mcg PO DAILY 05/16/15 01/09/25 amLODIPine [Norvasc] 5 mg PO DAILY 03/08/17 01/09/25 lamoTRIgine [LaMICtal] 75 mg PO BID 09/22/23 01/09/25 Atorvastatin [Lipitor] 80 mg PO HS 02/10/24 01/09/25 Gabapentin [Neurontin] 300 mg PO BID 10/07/24 01/09/25 carBAMazepine [TEGretol] 400 mg PO BID 10/07/24 01/09/25 Cholecalciferol (Vitamin D3) 50 mcg PO DAILY 01/09/25 01/09/25 [Vitamin D3 (50 Mcg = 2000 Iu)] Losartan Potassium 50 mg PO BID 01/09/25 01/09/25 Previous Rx's Medication Instructions Recorded Aspirin 81 mg PO DAILY #30 tab 10/09/24 Nitroglycerin Sl Tabs [Nitrostat] 0.4 mg SUBLINGUAL Q5M PRN #25 tab 10/09/24 Acetaminophen Tab [Tylenol] 650 mg PO Q6HR PRN tab 01/11/25 predniSONE 50 mg PO DAILY #5 tab 02/03/25 Allergies Allergy/AdvReac Type Severity Reaction Status Date / Time codeine Allergy Nausea & Verified 02/03/25 02:01 Vomiting, RASH, SWELLING hydrocodone bitartrate Allergy Nausea & Verified 02/03/25 02:01 [From Vicodin] Vomiting, RASH, SWELLING morphine Allergy RASH, Verified 02/03/25 02:01 SWELLING BANDAID Allergy Rash/Hives Uncoded 02/03/25 02:01 Review of Systems ROS Statement: Those systems with pertinent positive or pertinent negative responses have been documented in the HPI. ROS Other: All systems not noted in ROS Statement are negative. Past Medical History Past Medical History: Cancer, CVA/TIA, Hyperlipidemia, Hypertension, Neurologic Disorder, Osteoarthritis (OA), Supraventricular Tachycardia (SVT), Thyroid Disorder Additional Past Medical History / Comment(s): LBBB; TRIGEMINAL NEURALGIA- hospitalized in October for acute episode @[facility], hx. THYROID cancer, TIA in 2023 History of Any Multi-Drug Resistant Organisms: None Reported Past Surgical History: Cardiac Ablation, Heart Catheterization, Hysterectomy, Joint Replacement, Orthopedic Surgery Additional Past Surgical History / Comment(s): RT knee arthroscopy; Gamma KNIFE TX TRIGEMINAL NEURALGIA; NASAL PROC; I&D FACIAL MOLE, thyroidectomy, colonoscopy, left knee replaced, rhizotomy of trigeminal nerve @[facility] October 2017, loop recorder, bilat cataract removal Past Anesthesia/Blood Transfusion Reactions: Motion Sickness Additional Past Anesthesia/Blood Transfusion Reaction / Comment(s): VERY CLAUSTROPHOBIC WITH ANYTHING CLOSE TO FACE INCL O2 TUBING Past Psychological History: No Psychological Hx Reported Smoking Status: Never smoker Past Alcohol Use History: None Reported Past Drug Use History: None Reported - Past Family History Father Family Medical History: Cancer Additional Family Medical History / Comment(s): Father at age 79 from leukemia Son(s) Additional Family Medical History / Comment(s): Patient has 2 sons and one has osteoarthritis status post bilateral hip replacements. Daughter(s) Additional Family Medical History / Comment(s): Patient has one daughter with history of Arnold-Chiari. Mother Family Medical History: Cancer Additional Family Medical History / Comment(s): Mother at age 71 from lung cancer Father Brother(s) Family Medical History: Cancer Additional Family Medical History / Comment(s): Patient has one brother with history of prostate cancer, stroke, diabetes, hypertension. Sister(s) Family Medical History: Cancer Additional Family Medical History / Comment(s): BREAST CANCER General Exam General appearance: alert, in distress (Patient is tearful) Head exam: Present: atraumatic, normocephalic, other (Positive for exquisite right facial TTP along all 3 trigeminal nerves across right face) Eye exam: Present: normal appearance, PERRL, EOMI (EOM intact in all flores). Absent: scleral icterus, conjunctival injection, periorbital swelling Pupils: Present: normal accommodation ENT exam: Present: normal exam, mucous membranes moist Neck exam: Present: normal inspection. Absent: tenderness, meningismus, lymphadenopathy Respiratory exam: Present: normal lung sounds bilaterally. Absent: respiratory distress, wheezes, rales, rhonchi, stridor, accessory muscle use Cardiovascular Exam: Present: regular rate, normal rhythm, normal heart sounds. Absent: systolic murmur, diastolic murmur, rubs, gallop, clicks GI/Abdominal exam: Present: soft, normal bowel sounds. Absent: distended, tenderness, guarding, rebound, rigid Extremities exam: Present: normal inspection, full ROM, normal capillary refill, other (Bilateral upper and lower extremity distal neurovascular motor function intact). Absent: tenderness, pedal edema, joint swelling, calf tenderness Back exam: Present: normal inspection Neurological exam: Present: alert, oriented X3. Absent: CN II-XII intact (Patient unable to open mouth, puff cheeks, smile, stick out tongue or turn head attributed to facial neuralgia) Psychiatric exam: Present: normal affect, normal mood Skin exam: Present: warm, dry, intact, normal color. Absent: rash Course Vital Signs 02/03/25 01:59 Temperature 98.5 F Pulse Rate 66 Respiratory 18 Rate Blood Pressure 166/82 O2 Sat by Pulse 97 Oximetry Medical Decision Making - Medical Decision Making Was pt. sent in by a medical professional or institution (, PA, PURIFICATION SUPERVISOR, urgent care, hospital, or long-term...) When possible be specific @ -[No] Did you speak to anyone other than the patient for history (EMS, parent, family, police, friend...)? What history was obtained from this source @ -[No] Did you review nursing and triage notes (agree or disagree)? Why? @ -[I reviewed and agree with nursing and triage notes] Were old charts reviewed (outside hosp., previous admission, EMS record, old EKG, old radiological studies, urgent care reports/EKG's, long-term records)? Report findings @ -[No old charts were reviewed] Differential Diagnosis (chest pain, altered mental status, abdominal pain women, abdominal pain men, vaginal bleeding, weakness, fever, dyspnea, syncope, h eadache, dizziness, GI bleed, back pain, seizure, CVA, palpatations, mental health, musculoskeletal)? @ -Differential Headache: Migraine, tension, cluster, carbon monoxide, central venous thrombosis, pension karma temporal arteritis, acute closure glaucoma, intercranial hemorrhage, mastoiditis, sinusitis, head injury, this is not meant to be an all-inclusive list. EKG interpreted by me (3pts min.). @ -Not done X-rays interpreted by me (1pt min.). @ -[None done] CT interpreted by me (1pt min.). @ -[None done] U/S interpreted by me (1pt. min.). @ -[None done] What testing was considered but not performed or refused? (CT, X-rays, U/S, labs)? Why? @ -[None] What meds were considered but not given or refused? Why? @ -[None] Did you discuss the management of the patient with other professionals (professionals i.e. , PA, PURIFICATION SUPERVISOR, lab, RT, psych nurse, social media assistant, pediatric licensed practical nurse, teacher, rating officer, pillowcase cutter)? Give summary @ -[No] Was smoking cessation discussed for >3mins.? @ -[No] Was critical care preformed (if so, how long)? @ -[No] Were there social determinants of health that impacted care today? How? (Homelessness, low income, unemployed, alcoholism, drug addiction, transportati on, low edu. Level, literacy, decrease access to med. care, intermediate, rehab)? @ -[No] Was there de-escalation of care discussed even if they declined (Discuss DNR or withdrawal of care, Hospice)? DNR status @ -[No] What co-morbidities impacted this encounter? (DM, HTN, Smoking, COPD, CAD, Cancer, CVA, ARF, Chemo, Hep., AIDS, mental health diagnosis, sleep apnea, morbid obesity)? @ -Trigeminal neuralgia Was patient admitted / discharged? Hospital course, mention meds given and route, prescriptions, significant lab abnormalities, going to OR and other pertinent info. @ -[hospital course] Undiagnosed new problem with uncertain prognosis? @ -[No] Drug Therapy requiring intensive monitoring for toxicity (Heparin, Nitro, Insulin, Cardizem)? @ -[No] Were any procedures done? @ -[No] Diagnosis/symptom? @ -Trigeminal neuralgia Acute, or Chronic, or Acute on Chronic? @ -Acute Uncomplicated (without systemic symptoms) or Complicated (systemic symptoms)? @ -Uncomplicated Side effects of treatment? @ -[No] Exacerbation, Progression, or Severe Exacerbation? @ -Severe exacerbation Poses a threat to life or bodily function? How? (Chest pain, [place], [place], pneumonia, PE, COPD, DKA, ARF, appy, cholecystitis, CVA, Diverticulitis, Homicidal, Suicidal, threat to staff... and all critical care pts) @ -[No] - Lab Data Result diagrams: 02/03/25 03:17 02/03/25 03:17 Lab Results 02/03/25 02/03/25 Range/Units 03:17 03:17 WBC 8.11 (4.50-10.00) 10*3/uL RBC 4.96 (4.10-5.20) 10*6/uL Hgb 14.9 (12.0-15.0) g/dL Hct 44.2 (37.2-46.3) % MCV 89.1 (80.0-97.0) fL MCH 30.0 (27.0-32.0) pg MCHC 33.7 (32.0-37.0) g/dL Plt Count 259 (140-440) 10*3/uL MPV 10.2 (9.5-12.2) fL Immature Gran % (Auto) 0.4 % Neutrophils % 83.3 % Lymphocytes % 10.0 % Monocytes % 6.0 % Eosinophils % 0.1 % Basophils % 0.2 % Immature Gran # 0.03 (0.00-0.04) 10*3/uL Neutrophils # 6.75 (1.80-7.70) 10*3/uL Lymphocytes # 0.81 L (0.90-5.00) 10*3/uL Monocytes # 0.49 (0.20-1.00) 10*3/uL Eosinophils # 0.01 L (0.04-0.35) 10*3/uL Basophils # 0.02 (0.00-0.10) 10*3/uL Sodium 138 (137-145) mmol/L Potassium 4.2 (3.5-5.1) mmol/L Chloride 102 (98-107) mmol/L Carbon Dioxide 25 (22-30) mmol/L Anion Gap 11 mmol/L BUN 13 (7-17) mg/dL Creatinine 0.86 (0.52-1.04) mg/dL Est GFR (CKD-EPI)AfAm 75 (>60 ml/min/1.73 sqM) Est GFR (CKD-EPI)NonAf 65 (>60 ml/min/1.73 sqM) Glucose 123 H (74-99) mg/dL Calcium 10.1 (8.4-10.2) mg/dL Total Bilirubin 0.8 (0.2-1.3) mg/dL AST 32 (14-36) U/L ALT 23 (4-34) U/L Alkaline Phosphatase 114 (38-126) U/L Total Protein 7.6 (6.3-8.2) g/dL Albumin 4.7 (3.5-5.0) g/dL Disposition Clinical Impression: Trigeminal neuralgia of right side of face Disposition: HOME SELF-CARE Condition: Fair Instructions (If sedation given, give patient instructions): Trigeminal Neuralgia (ED) Additional Instructions: Continue regular use of previously prescribed medication as directed. Follow-up with neurology regarding ongoing management of neuralgia. Return to ER for any recurrence of worsening pain/symptoms Prescriptions: predniSONE 50 mg PO DAILY #5 tab Is patient prescribed a controlled substance at d/c from ED?: No Referrals: Ramone Cobos [Primary Care Provider] - 1-2 days Anum Grant DO [STAFF PHYSICIAN] - 1-2 days Time of Disposition: 04:18
[2025-02-03 03:45] LABS: Basophils # (A) 0.02 10*3/uL (0.00-0.10); Basophils % (A) 0.2 %; Eosinophils # (A) 0.01 10*3/uL (0.04-0.35); Eosinophils % (A) 0.1 %; HCT 44.2 % (37.2-46.3); HGB 14.9 g/dL (12.0-15.0); Lymphocytes # (A) 0.81 10*3/uL (0.90-5.00); MCHC 33.7 g/dL (32.0-37.0); MCV 89.1 fL (80.0-97.0); Mean Platelet Volume 10.2 fL (9.5-12.2); Monocytes # (A) 0.49 10*3/uL (0.20-1.00); Neutrophils # (A) 6.75 10*3/uL (1.80-7.70); Neutrophils % (A) 83.3 %; Platelet Count 259 10*3/uL (140-440); RBC 4.96 10*6/uL (4.10-5.20); RDW 13.5 % (11.5-14.5); WBC 8.11 10*3/uL (4.50-10.00)
[2025-02-03 03:56] LABS: ALT 23 U/L (4-34); AST 32 U/L (14-36); African American GFR (CKD) 75 (>60 ml/min/1.73 sqM); Albumin 4.7 g/dL (3.5-5.0); Alkaline Phosphatase 114 U/L (38-126); Blood Urea Nitrogen 13 mg/dL (7-17); Calcium 10.1 mg/dL (8.4-10.2); Carbon Dioxide 25 mmol/L (22-30); Glucose 123 mg/dL (74-99); Non-African American GFR(CKD) 65 (>60 ml/min/1.73 sqM); Total Bilirubin 0.8 mg/dL (0.2-1.3); Total Protein 7.6 g/dL (6.3-8.2)
[2025-02-03 04:03] LABS: Anion Gap 11 mmol/L; Chloride 102 mmol/L (98-107); Potassium 4.2 mmol/L (3.5-5.1); Sodium 138 mmol/L (137-145)
[2025-02-03 05:28] VITALS: BP 185/92; PULSE 105; TEMP 98.2
== END 2025-02-03 05:28 | disposition home or self-care (01) ==
LOC: EC 01:50
DX: G50.0 Trigeminal neuralgia (principal); Z85.850 Personal history of malignant neoplasm of thyroid; Z86.73 Personal history of transient ischemic attack (TIA), and cerebral infarction without residual deficits; Z88.5 Allergy status to narcotic agent; Z88.8 Allergy status to other drugs, medicaments and biological substances
CPT/HCPCS: 36415; 80053; 85025; 99284; 96374; 96375; 96376; 96361; J1885; J1171; J2919